=== PATIENT | male | born 1945 | race Caucasian/White ===

== ENCOUNTER 2020-06-13 12:40 | Inpatient (IN) | payer MEDICARE ==
[2020-06-13] MEDS ORDERED: HEPARIN SODIUM 1,000 UN/ML (10ML VL) IV ONE (12:45)
--- NOTE | 2020-06-13 12:45 | ED ---
Chest Pain HPI - General Stated Complaint: chest pain Time Seen by Provider: 06/13/20 12:40 - History of Present Illness Initial Comments: Patient is a 74-year-old male, previously healthy who presents to the emergency department with chest pain. Chest pain started around 10:30 AM this morning. He describes it as a crushing chest pain with radiation to the left arm. Patient has associated shortness of breath. No cough, fevers or chills. He denies previous history of cardiac disease. Did have a stress test however this was several years ago. EMS was called to the house where they found that the patient was having ST segment elevation. He was provided with 1 nitro, 4 baby aspirins, 100 g of fentanyl. Patient arising continues to have 8 out of 10 pain. Denies any abdominal pain. No back pain. No other alleviating, precipitating or modifying factors - Related Data Home Medications Medication Instructions Recorded Confirmed Ibuprofen [Motrin Ib] 200 - 800 mg PO Q8H PRN 06/13/20 06/13/20 Allergies Allergy/AdvReac Type Severity Reaction Status Date / Time No Known Allergies Allergy Verified 06/13/20 12:52 Review of Systems ROS Statement: Those systems with pertinent positive or pertinent negative responses have been documented in the HPI. ROS Other: All systems not noted in ROS Statement are negative. EKG Findings - EKG Comments: EKG Findings:: EKG demonstrates a sinus rhythm with a ventricular rate of 91. NV interval 136. QRS 104. QTC 489. ST segment elevation in V1 through V3. Inferior depression in 2, 3 and aVF. General Exam General appearance: alert, in no apparent distress Head exam: Present: atraumatic, normocephalic, normal inspection Eye exam: Present: normal appearance, PERRL, EOMI. Absent: scleral icterus, conjunctival injection, periorbital swelling ENT exam: Present: normal exam, mucous membranes moist Neck exam: Present: normal inspection. Absent: tenderness, meningismus, lymphadenopathy Respiratory exam: Present: rales (b/l bases). Absent: respiratory distress, wheezes, rhonchi, stridor Cardiovascular Exam: Present: regular rate, normal rhythm, normal heart sounds. Absent: systolic murmur, diastolic murmur, rubs, gallop, clicks GI/Abdominal exam: Present: soft, normal bowel sounds. Absent: distended, tenderness, guarding, rebound, rigid Extremities exam: Present: normal inspection, full ROM, normal capillary refill. Absent: tenderness, pedal edema, joint swelling, calf tenderness Back exam: Present: normal inspection Neurological exam: Present: alert, oriented X3, CN II-XII intact Psychiatric exam: Present: normal affect, normal mood Skin exam: Present: warm, dry, intact, normal color. Absent: rash Course Vital Signs 06/13/20 12:41 Temperature 98.0 F Pulse Rate 79 Respiratory 18 Rate Blood Pressure 120/85 O2 Sat by Pulse 97 Oximetry - Reevaluation(s) Reevaluation #1: Dr. Quinones notified prehospital that patients EKG demonstrates STEMI 06/13/20 12:35 Reevaluation #2: STEMI activated - Dr. Quinones at bedside to evaluate patient 06/13/20 12:50 Reevaluation #3: 06/13/20 13:10 Patient wheeled to aquatic life laborer Chest Pain MDM - MDM Upon arrival the patient's is placed in the trauma bay 1. Thorough history and physical exam was performed. 12-lead EKG does demonstrate anterior wall STEMI. Patient was given 4000 units heparin as he has no contraindications. Blood pressure is stable and therefore the patient was also given 4 mg of morphine for pain control. Dr. Silverman does present to the emergency department and evaluates the patient. Requesting 40 mg of Lasix. Patient's does arrive. Both and patient agreed to catheterization at this time. Patient remained with stable vital signs and was taken to the Booking Police Officer in stable condition. Spoke with Dr. Oliveira who will admit the patient. Disposition Clinical Impression: ST elevation myocardial infarction (STEMI), Chest pain Disposition: ADMITTED IP TO THIS HOSP Condition: Serious Is patient prescribed a controlled substance at d/c from ED?: No Decision to Admit Reason: Admit from EC Decision Date: 06/13/20 Decision Time: 13:00
[2020-06-13] MEDS ORDERED: SODIUM CHLORIDE 0.9% 1,000 ML IV ONE (12:46)
[2020-06-13] MEDS ORDERED: FUROSEMIDE 10 MG/ML 4 ML VIAL IV STA (12:52)
[2020-06-13] MEDS ORDERED: MORPHINE SULFATE 4 MG/ML SYRINGE IVP STA (12:55)
[2020-06-13] MEDS ORDERED: NALOXONE 0.4 MG/ML 1 ML VIAL IV PRN (13:01)
[2020-06-13 13:10] LABS: ALT 19 U/L (4-49); AST 40 U/L (17-59); African American GFR (CKD) >90 (>60 ml/min/1.73 sqM); Alkaline Phosphatase 95 U/L (38-126); Anion Gap 12 mmol/L; Blood Urea Nitrogen 16 mg/dL (9-20); Carbon Dioxide 17 mmol/L (22-30); Chloride 107 mmol/L (98-107); Glucose 163 mg/dL (74-99); Non-African American GFR(CKD) >90 (>60 ml/min/1.73 sqM); Sodium 136 mmol/L (137-145); Total Bilirubin 1.2 mg/dL (0.2-1.3); Total Protein 6.7 g/dL (6.3-8.2)
[2020-06-13] MEDS ORDERED: fentaNYL (PF) 50 MCG/ML 2 ML AMP ONE (13:10)
[2020-06-13] MEDS ORDERED: HEPARIN SODIUM 1,000 UN/ML (10ML VL) ONE (13:10)
[2020-06-13 13:13] LABS: Basophils % (A) 0 %; Eosinophils # (A) 0.1 k/uL (0-0.7); Eosinophils % (A) 2 %; HGB 14.9 gm/dL (13.0-17.5); Lymphocytes # (A) 1.3 k/uL (1.0-4.8); Lymphocytes % (A) 18 %; MCH 33.8 pg (25.0-35.0); MCHC 34.7 g/dL (31.0-37.0); MCV 97.5 fL (80.0-100.0); Monocytes # (A) 0.6 k/uL (0-1.0); Monocytes % (A) 8 %; Neutrophils # (A) 5.1 k/uL (1.3-7.7); Neutrophils % (A) 70 %; Platelet Count 196 k/uL (150-450); RBC 4.41 m/uL (4.30-5.90); RDW 13.8 % (11.5-15.5); WBC 7.2 k/uL (3.8-10.6)
[2020-06-13] MEDS ORDERED: VERAPAMIL 2.5 MG/ML 2 ML AMP ONE (13:17)
[2020-06-13 13:21] LABS: Prothrombin Time 10.5 sec (9.0-12.0)
[2020-06-13] MEDS ORDERED: LIDOCAINE 1% INJ 10MG/ML (20 ML MDV) SQ ONE (13:21)
[2020-06-13 13:22] LABS: Potassium 4.8 mmol/L (3.5-5.1)
[2020-06-13] MEDS ORDERED: VERAPAMIL SYRINGE (5 MG/10 ML) INTRAARTER ONE (13:23)
[2020-06-13] MEDS ORDERED: IV FLUID CONTINUATION 800 ML IV ONE (13:25)
[2020-06-13 13:39] LABS: Partial Thromboplastin Time 19.6 sec (22.0-30.0)
--- NOTE | 2020-06-13 13:39 | P.CRDCN ---
History of Present Illness Consult date: 06/13/20 History of present illness: This is a 74-year-old gentleman with no significant past medical history who came to the emergency room with complaints of chest pain of 3 to 4 hrs duration. His EKG showed ST elevation anteriorly consistent with anterior wall DC. Patient is advised to have cardiac catheterization with the intention of primary intervention Review of Systems Not obtained Past Medical History Past Medical History: No Reported History History of Any Multi-Drug Resistant Organisms: None Reported Additional Past Surgical History / Comment(s): hernia, shoulder. cataracts. back Past Psychological History: No Psychological Hx Reported Smoking Status: Former smoker Past Alcohol Use History: Occasional Past Drug Use History: None Reported Medications and Allergies Home Medications Medication Instructions Recorded Confirmed Type Ibuprofen [Motrin Ib] 200 - 800 mg PO Q8H PRN 06/13/20 06/13/20 History Allergies Allergy/AdvReac Type Severity Reaction Status Date / Time No Known Allergies Allergy Verified 06/13/20 12:52 Physical Exam Vitals: Vital Signs Temp Pulse Resp BP Pulse Ox 06/13/20 12:41 98.0 F 79 18 120/85 97 Intake and Output 06/12/20 06/13/20 06/13/20 22:59 06:59 14:59 Other: Weight 103.51 kg GENERAL EXAM: Patient is alert and oriented and doesn't appear to be in any acute distress HEENT: Normocephalic. Normal reaction of pupils, equal size, normal range of extraocular motion. No erythema or exudates in the throat. NECK: No masses, no nuchal rigidity. CHEST: No chest wall deformity. LUNGS: Crackles at the right base HEART: S1 and S2 normal with no audible mumurs or gallops. Regular rhythm, femorals equal on both sides.. ABDOMEN: No hepatosplenomegaly, normal bowel sounds, no guarding or rigidity. SKIN: No rashes CENTRAL NERVOUS SYSTEM: No focal deficits. EXTREMITIES: No cyanosis, clubbing or edema. Results 06/13/20 12:47 06/13/20 12:47 Cardiac Enzymes 06/13/20 06/13/20 Range/Units 12:47 12:47 AST 40 (17-59) U/L Troponin I 0.082 H* (0.000-0.034) ng/mL CBC 06/13/20 Range/Units 12:47 WBC 7.2 (3.8-10.6) k/uL RBC 4.41 (4.30-5.90) m/uL Hgb 14.9 (13.0-17.5) gm/dL Hct 43.0 (39.0-53.0) % Plt Count 196 (150-450) k/uL Comprehensive Metabolic Panel 06/13/20 Range/Units 12:47 Sodium 136 L (137-145) mmol/L Potassium 4.8 (3.5-5.1) mmol/L Chloride 107 (98-107) mmol/L Carbon Dioxide 17 L (22-30) mmol/L BUN 16 (9-20) mg/dL Creatinine 0.74 (0.66-1.25) mg/dL Glucose 163 H (74-99) mg/dL Calcium 9.0 (8.4-10.2) mg/dL AST 40 (17-59) U/L ALT 19 (4-49) U/L Alkaline Phosphatase 95 (38-126) U/L Total Protein 6.7 (6.3-8.2) g/dL Albumin 4.0 (3.5-5.0) g/dL Current Medications Generic Name Dose Route Start Last Admin Trade Name Freq PRN Reason Stop Dose Admin Sodium Chloride 1,000 mls @ 999 mls/hr 06/13/20 12:46 06/13/20 12:55 Saline 0.9% IV 06/13/20 13:46 999 mls/hr .Q1H1M ONE Administration Naloxone HCl 0.2 mg 06/13/20 13:01 Naloxone 0.4 Mg/Ml 1 Ml Vial IV Q2M PRN Opioid Reversal Intake and Output 06/12/20 06/13/20 06/13/20 22:59 06:59 14:59 Other: Weight 103.51 kg Patient Weight 06/14/20 06:59 Weight 103.51 kg 06/13/20 12:47 06/13/20 12:47 EKG Interpretations (text) Acute anterolateral DC Assessment and Plan (1) ST elevation myocardial infarction (STEMI) Current Visit: Yes Status: Acute Code(s): I21.3 - ST ELEVATION (STEMI) MYOCARDIAL INFARCTION OF RUST SITE SNOMED Code(s): 54511444 Plan: Proceed with cardiac catheterization with intntion of primary intervention
[2020-06-13] MEDS: HEPARIN SODIUM 1,000 UN/ML (10ML VL) IV ONE ×2 (13:40→14:21)
[2020-06-13] MEDS ORDERED: TIROFIBAN BOLUS 12.5MG/250 ML BAG IV ONE (13:41)
--- NOTE | 2020-06-13 13:43 | P.CARDCATH ---
Date of Procedure: 06/13/20 Preoperative Diagnosis: Acute anterior wall myocardial infarctions Postoperative Diagnosis: Total occlusion of the proximal LAD Procedure(s) Performed: Left heart catheterization, selective coronary arteriography. No LV gram Description of Procedure: HISTORY: Patient came at the [facility] CONSENT:I have discussed the risks, benefits and alternative therapies for the above-mentioned procedure and for both sedation/analgesia as well as necessary blood product administration, if indicated, as they pertain to this patient. The patient has indicated understanding and acceptance of the risks and procedures discussed. PROCEDURE: Patient was brought to the lab in a fasting state. Patient was given some IV sedation in the emergency room. The right wrist is infiltrated with lidocaine and right radial artery was entered using Seldinger technique. A 6- Azeri catheter was left in place and selective coronary arteriography was performed. Patient tolerated the procedure well. Femoral angiogram was performed and Angio-Seal was applied for hemostasis. No immediate complications were noted and patient was transferred to [facility] in a stable condition Conscious Sedation: Versed 0mg Fentanyl 0 g Duration 14minutes HEMODYNAMICS: The aortic pressure is 130/70. Left ventricle end-diastolic pressure was not measured SELECTIVE CORONARY ARTERIOGRAPHY: LEFT MAIN: Normal length and patent THE LEFT ANTERIOR DESCENDING CORONARY ARTERY: . Good caliber vessel which is totally occluded in the proximal portion THE LEFT CIRCUMFLEX AND IS CORONARY ARTERY: . Good caliber vessel free of any significant occlusive disease THE RIGHT CORONARY ARTERY: Large caliber vessel free of occlusive disease. Dominant vessel giving rise to PDA and PLV LEFT VENTRICULOGRAPHY: FINAL IMPRESSION: Total occlusion of the LAD PLAN: Stent placement of LAD PROGNOSIS: Fair
[2020-06-13] MEDS ORDERED: TIROFIBAN 12.5MG-250ML NS 250 ML IV ONE (13:45)
[2020-06-13] MEDS ORDERED: NOREPINEPHRINE 4 MG in SODIUM CHLORIDE 0.9% 250 ML IV ONE (13:50)
[2020-06-13] MEDS ORDERED: AMIODARONE 50 MG/ML 3 ML VIAL IV ONE (13:52)
[2020-06-13] MEDS ORDERED: LIDOCAINE 2% SYG (PF) 100 MG/5 ML IV ONE (13:55)
[2020-06-13] MEDS: EPINEPHrine 10 ML SYRINGE (0.1 MG/ML) IV ONE ×4 (13:57→14:12)
--- NOTE | 2020-06-13 14:05 | XR ---
EXAMINATION TYPE: XR chest 1V portable DATE OF EXAM: 06/13/2020 COMPARISON: 07/19/2010 HISTORY: Chest pain TECHNIQUE: Single frontal view of the chest is obtained. FINDINGS: Elevated left hemidiaphragm with basilar atelectasis. Coarsened interstitium. Arthropathy of the left shoulder. Mild prominence of the right hilum. Patient is rotated. IMPRESSION: 1. Left basilar atelectasis favored over early pneumonia. 2. Prominent of the right hilum likely reflects slight patient rotation. Follow-up PA and lateral vie ws of the chest recommended to exclude ascending aorta aneurysm.
[2020-06-13] MEDS ORDERED: IOPAMIDOL-370 125ML BTL INJ ONE (14:21)
[2020-06-13] MEDS ORDERED: IOPAMIDOL-370 100ML BTL INJ ONE (14:24)
[2020-06-13] MEDS ORDERED: SODIUM CHLORIDE 0.9% 500 ML 500 ML IV ONE (14:29)
[2020-06-13] MEDS ORDERED: TICAGRELOR 90 MG TAB ONE (14:37)
[2020-06-13] MEDS ORDERED: TICAGRELOR 90 MG TAB PO ONE (14:38)
[2020-06-13 15:01] LABS: Glucose,Whole Blood 210 mg/dL (75-99)
--- NOTE | 2020-06-13 16:51 | P.HPIM ---
History of Present Illness H&P Date: 06/13/20 Chief Complaint: chest pain Patient is a 74-year-old healthy male who presented to the emergency Department complaints of chest pain. On arrival to the ER his EKG showed ST segment elevation anteriorly. A code STEMI was activated. He went emergently to the medical lab scientist. He had one drug-eluting stent placed to the LAD. He was transferred to the ICU in stable condition. Patient seen and examined at bedside. This morning was going some mild physical labor and started having chest pain and left arm pain that continued to get worse. Called 911. + SOB, + diaphoresis, no nausea, no presyncope. has a hx of pain on the right side of his chest, has had physical exhaustion with intermittent shortness of breath. Has seen Dr. Lombardi in the past about 10 years ago negative stress test but had some "weakness in the heart" Follows with urology for problems with urination. Pertinent positives and negatives as discussed in HPI, a complete review of systems was performed and all other systems are negative. General: non toxic, no distress, appears at stated age Derm: warm, dry Head: atraumatic, normocephalic, symmetric Eyes: EOMI, no lid lag, anicteric sclera, pupils equal round reactive to light ENT: Nose and ears atraumatic, no thrush, no pharyngeal erythema Neck: No thyromegaly, no cervical lymphadenopathy, trachea midline, supple Mouth: no lip lesion, mucus membranes moist Cardiovascular: S1S2 reg, no murmur, positive posterior tibial pulse bilateral, no edema, capillary refill less than 2 seconds Lungs: clear to ascultation bilateral, no ronchi, no rales, no wheeze, no accessory muscle use Abdominal: soft, nontender to palpation, no guarding, no appreciable organomegaly, normal bowel sounds Ext: no gross muscle atrophy, muscle strength muscle strength 5 out of 5 in all 4 extremities, no contractures Neuro: CN II-XI grossly intact, light touch intact all 4 extremities, finger to nose within normal limits, Psych: Alert, oriented, appropriate affect ST segment elevated myocardial infarction status post PCI 1 to the LAD -Aspirin, Lipitor, Lopressor (hold for low BP), aggrestat -Telemetry -Echocardiogram in a.m. -Cardiology recommendations - currently being weaned off levo Hyperglycemia -Sliding-scale insulin -Check hemoglobin A1c Overweight BMI 30.9 - structured outpatient weight loss The patient is admitted with an anticipated greater than 2 midnight stay for evaluation of []. Surrogate decision-maker: CODE STATUS:full code, no assisted vent DVT prophylaxis: heparin Discussed with: patient Anticipated discharge date: 3-[address]: home A total of 65 minutes was spent on the care of this complex patient more than 50% of the time was spent in counseling and care coordination. Past Medical History Past Medical History: No Reported History History of Any Multi-Drug Resistant Organisms: None Reported Additional Past Surgical History / Comment(s): hernia Injuinal left and right , shoulder X 3. cataracts, macular repair. back Past Psychological History: No Psychological Hx Reported Smoking Status: Former smoker (quit in 1992) Past Alcohol Use History: Occasional Past Drug Use History: None Reported - Past Family History Father Additional Family Medical History / Comment(s): CHF, valvular heart disease Medications and Allergies Home Medications Medication Instructions Recorded Confirmed Type Ibuprofen [Motrin Ib] 200 - 800 mg PO Q8H PRN 06/13/20 06/13/20 History Allergies Allergy/AdvReac Type Severity Reaction Status Date / Time No Known Allergies Allergy Verified 06/13/20 12:52 Physical Exam Osteopathic Statement: *. No significant issues noted on an osteopathic structural exam other than those noted in the History and Physical/Consult. Vitals: Vital Signs Temp Pulse Pulse Resp BP Pulse Ox 06/13/20 13:08 97.8 F 78 20 128/102 98 06/13/20 12:45 74 20 06/13/20 12:41 98.0 F 79 18 120/85 97 Intake and Output 06/13/20 06/13/20 06/13/20 06:59 14:59 22:59 Intake Total 830 Balance 830 Intake: IV 830 Other: Weight 103.51 kg Results CBC & Chem 7: 06/13/20 12:47 06/13/20 12:47 Labs: Abnormal Lab Results - Last 24 Hours (Table) 06/13/20 06/13/20 06/13/20 Range/Units 12:47 12:47 12:47 APTT 19.6 L (22.0-30.0) sec Sodium 136 L (137-145) mmol/L Carbon Dioxide 17 L (22-30) mmol/L Glucose 163 H (74-99) mg/dL POC Glucose (mg/dL) (75-99) mg/dL Troponin I 0.082 H* (0.000-0.034) ng/mL 06/13/20 Range/Units 14:59 APTT (22.0-30.0) sec Sodium (137-145) mmol/L Carbon Dioxide (22-30) mmol/L Glucose (74-99) mg/dL POC Glucose (mg/dL) 210 H (75-99) mg/dL Troponin I (0.000-0.034) ng/mL
[2020-06-13 16:53] LABS: Glucose,Whole Blood 181 mg/dL (75-99)
[2020-06-13] MEDS: ATORVASTATIN 80 MG TAB PO SCH (16:55)
[2020-06-13] MEDS: SODIUM CHLORIDE 0.9% 1,000 ML IV SCH (16:55)
[2020-06-13] MEDS: INSULIN ASPART (NovoLOG) 100 UNIT/ML VIAL SQ SCH ×2 (16:56→21:02)
[2020-06-13] MEDS ORDERED: DEXTROSE 5% IN WATER 100 ML with AMIODARONE 150 MG IV ONE (18:00)
[2020-06-13] MEDS ORDERED: AMIODARONE 360 MG in DEXTROSE 5% IN WATER 200 ML IV ONE ×2 (18:15)
[2020-06-13 20:40] LABS: Glucose,Whole Blood 161 mg/dL (75-99)
[2020-06-13] MEDS: LOSARTAN 25 MG TAB PO SCH (21:51)
[2020-06-13] MEDS: METOPROLOL TARTRATE 12.5 MG TAB PO SCH (21:52)
[2020-06-13] MEDS ORDERED: TIROFIBAN 12.5MG-250ML NS 250 ML IV SCH (22:30)
[2020-06-14] MEDS ORDERED: AMIODARONE 450 MG in DEXTROSE 5% IN WATER 250 ML IV SCH ×2
[2020-06-14] MEDS: SODIUM CHLORIDE 0.9% 1,000 ML IV SCH (03:05)
[2020-06-14] MEDS ORDERED: NITROGLYCERIN SL TABS 0.4 MG TAB SUBLINGUAL PRN (03:10)
[2020-06-14] MEDS: ACETAMINOPHEN TAB 325 MG TAB PO PRN (03:20)
[2020-06-14 04:22] LABS: HCT 38.7 % (39.0-53.0); HGB 13.5 gm/dL (13.0-17.5); MCH 33.9 pg (25.0-35.0); MCHC 34.9 g/dL (31.0-37.0); MCV 97.2 fL (80.0-100.0); Mean Platelet Volume 8.4; Platelet Count 160 k/uL (150-450); RBC 3.98 m/uL (4.30-5.90); RDW 13.4 % (11.5-15.5)
[2020-06-14 04:37] LABS: ALT 66 U/L (4-49); AST 469 U/L (17-59); African American GFR (CKD) >90 (>60 ml/min/1.73 sqM); Albumin 3.1 g/dL (3.5-5.0); Alkaline Phosphatase 75 U/L (38-126); Anion Gap 6 mmol/L; Blood Urea Nitrogen 17 mg/dL (9-20); Calcium 8.2 mg/dL (8.4-10.2); Carbon Dioxide 22 mmol/L (22-30); Chloride 106 mmol/L (98-107); Cholesterol 144 mg/dL (<200); Glucose 142 mg/dL (74-99); HDL Cholesterol 33 mg/dL (40-60); LDL Cholesterol,Calculated 91 mg/dL (0-99); Non-African American GFR(CKD) >90 (>60 ml/min/1.73 sqM); Potassium 4.1 mmol/L (3.5-5.1); Sodium 134 mmol/L (137-145); Total Bilirubin 0.8 mg/dL (0.2-1.3); Total Protein 5.4 g/dL (6.3-8.2); Triglycerides 100 mg/dL (<150)
[2020-06-14 06:40] LABS: Glucose,Whole Blood 162 mg/dL (75-99)
[2020-06-14] MEDS: INSULIN ASPART (NovoLOG) 100 UNIT/ML VIAL SQ SCH ×4 (06:42→20:39)
--- NOTE | 2020-06-14 08:25 | PTCA ---
PERCUTANEOUSTRANS CORORONARY ANGIOGRAPHY DATE OF SERVICE: 06/13/2020 PROCEDURE: PTCA and stenting of a totally occluded proximal LAD in the setting of an acute ST- elevation TN with a drug-eluting stent. PERFORMED BY: Dr. Leigh Lombardi. Moderate conscious sedation time was 60 minutes. Patient was administered Versed and Dilaudid. Oxygen saturation, hemodynamics and EKG were monitored closely. CLINICAL INFORMATION: Mr. Marco Antonio Ontiveros is a 74-year-old gentleman, a patient of Dr. Gregorio/Dr. Martinez who came into the hospital with chest pain suggestive of acute TN. He had anterior ST elevation, was seen and evaluated by Dr. Silverman who performed a cardiac cath which revealed that he had a total occlusion of proximal LAD. Cardiac cath was performed from right radial approach. His RCA had noncritical disease and circumflex was nondominant with noncritical disease. He was advised intervention that was performed expeditiously. Initially I used a JL-4 guide catheter without much good guide support. I switched over to an XB LAD 3.5 and 4.0, and still there was inadequate support. Eventually, I used a JL4.5 guide catheter. With this I was able to get good support. I advanced a run-through wire across the lesion and predilatation was performed with 3.0 caliber 12 mm Trek balloon. Subsequently I deployed a 3.25 caliber Xience stent in the distal aspect of the lesion. This was a quite a long lesion and in fact, there was good size diagonal branch that came off from the lesion. The initial stent jailed the diagonal branch. Proximal to it, another 12 mm stent was deployed telescoping into it and this was also a 3.25 caliber stent. Patient received heparin intravenously and also Aggrastat infusion was given. ACT was about 218. Excellent angiographic result was achieved. Patient developed significant hypotension after the reperfusion and also had reperfusion idioventricular rhythm up to 90 beats per minute and also then had ventricular tachycardia at 110. I did not do any electrical cardioversion; instead, I gave him some amiodarone and lidocaine. With this he converted to sinus rhythm and then remained stable. He also received some Levophed drip. At the end of the procedure, he was on 6 mcg of Levophed with a pressure of 110 systolic completely pain-free with improvement in EKG. The sheath was taken out and a TR band applied as per protocol with saturation of the fingers of the right hand of 95%. Excellent angiographic result without complication was achieved. Two drug-eluting stents were deployed. Reperfusion was achieved in 70 minutes from the time patient came to the hospital. The door to balloon time was 70 minutes. Moderate conscious sedation time was 60 minutes. SOLOMON / ERNESTINE: [id number] /
[2020-06-14] MEDS ORDERED: FUROSEMIDE 10 MG/ML 2 ML VIAL IV ONE (08:48)
[2020-06-14] MEDS: ENOXAPARIN 40 MG/0.4 ML SYRINGE SQ SCH (08:52)
[2020-06-14] MEDS: METOPROLOL TARTRATE 12.5 MG TAB PO SCH ×2 (08:52→20:41)
[2020-06-14] MEDS: ATORVASTATIN 80 MG TAB PO SCH (08:52)
[2020-06-14] MEDS: TICAGRELOR 90 MG TAB PO SCH ×2 (08:52→20:41)
[2020-06-14] MEDS: ASPIRIN 81 MG PO SCH (08:52)
--- NOTE | 2020-06-14 10:33 | PN ---
PROGRESS NOTE Mr. Ontiveros is in sinus rhythm today. He is comfortable resting. Has no chest pain or shortness of breath. He presented with acute anterior wall LA, had occlusion of proximal LAD yesterday underwent stenting with 2 drug-eluting stent, complicated by a reperfusion arrhythmias and hypotension requiring amiodarone. However, he is in sinus rhythm, hemodynamically stable, off the Levophed, doing much better. Complains of shortness of breath. No chest discomfort. Troponin rise and fall are rather quick suggestive of reperfusion. The patient is complaining of some shortness of breath but no chest discomfort. Laboratory data looks good. Right radial site looks good. I am recommending that we continue current medications. Obtain echocardiogram. Increase activity and based on clinical course we will make further recommendations. I will give him one dose of Lasix 20 mg IV push and do a CBC and BMP tomorrow. PHYSICAL EXAMINATION: Vital signs stable. No JVD. S1, S2 heard normally, but distantly, short systolic murmur. Lungs reveal fine basal rales. Abdomen is soft. Lower extremities reveal diminished pulses. Central nervous system is normal. IMPRESSION: 1. Acute anterior myocardial infarction, status post PCI of LAD. 2. Hyperlipidemia. RECOMMENDATIONS: I am recommending one dose of Lasix. Continue current medications. Increase activity. Keep him in ICU for one more day. Based on clinical course. We will make further recommendations. Echocardiogram today. MMODL / IJN: [id number] /
[2020-06-14 12:15] LABS: Glucose,Whole Blood 151 mg/dL (75-99)
--- NOTE | 2020-06-14 12:23 | ECHOF ---
Referral Reason:Anterior TN, post PCI MEASUREMENTS -------- HEIGHT: 177.8 cm WEIGHT: 103.4 kg BP: 101/51 IVSd: 1.1 cm (0.6 - 1.1) LVIDd: 5.4 cm (3.9 - 5.3) LVPWd: 0.9 cm (0.6 - 1.1) IVSs: 1.1 cm LVIDs: 4.7 cm LVPWs: 0.8 cm Ao Diam: 4.0 cm (2.0 - 3.7) AV Cusp: 2.3 cm (1.5 - 2.6) LA Diam: 2.6 cm (2.7 - 3.8) MV E Jamal: 0.48 m/s MV DecT: 236 ms MV A Jamal: 0.71 m/s MV E/A Ratio: 0.67 RAP: 15.00 mmHg RVSP: 17.19 mmHg FINDINGS -------- This was a technically difficult study with suboptimal views. The left ventricular size is normal. Left ventricular wall thickness is normal. Overall left vent ricular systolic function is severely impaired with, an EF between 25 - 30 %. Basal inferoseptal LV wall motion is hypokinetic. Mid inferior LV wall motion is hypokinetic. Mid inferoseptal LV wa ll motion is hypokinetic. Apical anterior LV wall motion is hypokinetic. Apical lateral LV wall motion is hypokinetic. Apical inferior LV wall motion is hypokinetic. Apical septum LV wall mo tion is hypokinetic. The RV was not well visualized. The left atrium is normal in size. The right atrial size is normal. Lumason used The aortic valve is trileaflet and appears structurally normal. The mitral valve is normal. There is trace mitral regurgitation. The tricuspid valve appears structurally normal. Trace tricuspid regurgitation present. Right gabby tricular systolic pressure is normal at < 35 mmHg. There is no pulmonic regurgitation present. The aortic root size is normal. The inferior vena cava is mildly dilated. There is no pericardial effusion. CONCLUSIONS -------- 1. The left ventricular size is normal. 2. Left ventricular wall thickness is normal. 3. Overall left ventricular systolic function is severely impaired with, an EF between 25 - 30 %. 4. Basal inferoseptal LV wall motion is hypokinetic. 5. Mid inferior LV wall motion is hypokinetic. 6. Mid inferoseptal LV wall motion is hypokinetic. 7. Apical anterior LV wall motion is hypokinetic. 8. Apical lateral LV wall motion is hypokinetic. 9. Apical inferior LV wall motion is hypokinetic. 10. Apical septum LV wall motion is hypokinetic. 11. There is trace mitral regurgitation. 12. Trace tricuspid regurgitation present. 13. There is no pericardial effusion. CONCRETE LABORER: Symone Fuchs RDCS
--- NOTE | 2020-06-14 14:06 | P.PN ---
Subjective Progress Note Date: 06/14/20 (delayed charting seen at 1030) Principal diagnosis: chest pain Patient is a 74-year-old healthy male who presented to the emergency Department complaints of chest pain. On arrival to the ER his EKG showed ST segment elevation anteriorly. A code STEMI was activated. He went emergently to the laboratory asst. He had one drug-eluting stent placed to the LAD. He was transferred to the ICU in stable condition. Patient seen and examined at bedside. No chest pain now but did have some chest pain overnight, Feeling very short of breath days, no nausea or vomiting. General: ill appearing, no distress, appears at stated age Derm: warm, dry Head: atraumatic, normocephalic, symmetric Eyes: EOMI, no lid lag, anicteric sclera Mouth: no lip lesion, mucus membranes moist Cardiovascular: S1S2 reg, no murmur, positive posterior tibial pulse bilateral, Lungs: decreased be bilateral, no rhonchi, no rales , no accessory muscle use Abdominal: soft, nontender to palpation, no guarding, no appreciable organomegaly Ext: no gross muscle atrophy, no edema LE, + L hand swelling, no contractures Neuro: CN II-XI grossly intact, no focal neuro deficits Psych: Alert, oriented, appropriate affect ST segment elevated myocardial infarction status post PCI 1 to the LAD, ischemic cardiomyopathy -Aspirin, Lipitor, Lopressor, cozzar, brilinta -Telemetry -Cardiology recommendations - reperfusion arrhythmia requiring amio Hyperglycemia -Sliding-scale insulin -hemoglobin A1c pending Overweight BMI 30.9 - structured outpatient weight loss DVT prophylaxis: heparin Discussed with: patient Anticipated discharge date: 3-[address]: home A total of 35 minutes was spent on the care of this complex patient more than 50% of the time was spent in counseling and care coordination. Objective - Vital Signs Vital signs: Vital Signs Temp 98.5 F 06/14/20 08:00 Pulse 69 06/14/20 09:00 Resp 27 H 06/14/20 09:00 BP 116/81 06/14/20 09:00 Pulse Ox 100 06/14/20 09:00 Intake & Output 06/13/20 06/14/20 06/14/20 18:59 06:59 18:59 Intake Total 1430 1349.4 816.6 Output Total 958 829 1030 Balance 630 594.4 -313.4 Weight 103.51 kg 105.2 kg Intake: IV 1230 1349.4 216.6 Amiodarone 360 mg In 133.2 Dextrose 5% in Water 200 ml @ 1 MG/MIN 33.333 mls/ hr IV .Q6H [facility] Rx#: [id number] Amiodarone 450 mg In 116.2 16.6 Dextrose 5% in Water 250 ml @ 0.5 MG/MIN 16.667 mls/hr IV .Q15H [facility] Rx#: [id number] Sodium Chloride 0.9% 1, 400 1100 200 000 ml @ 100 mls/hr IV . Q10H [facility] Rx#:[id number] Oral 200 600 Output: Urine 832 534 4883 Other: Voiding Method Indwelling Catheter Indwelling Catheter Indwelling Catheter - Labs CBC & Chem 7: 06/14/20 03:13 06/14/20 03:13 Labs: Abnormal Lab Results - Last 24 Hours (Table) 06/13/20 06/13/20 06/13/20 Range/Units 14:59 16:51 18:06 RBC (4.30-5.90) m/uL Hct (39.0-53.0) % Sodium (137-145) mmol/L Glucose (74-99) mg/dL POC Glucose (mg/dL) 210 H 181 H (75-99) mg/dL Calcium (8.4-10.2) mg/dL AST (17-59) U/L ALT (4-49) U/L Troponin I 224.000 H* (0.000-0.034) ng/mL Total Protein (6.3-8.2) g/dL Albumin (3.5-5.0) g/dL HDL Cholesterol (40-60) mg/dL 06/13/20 06/14/20 06/14/20 Range/Units 20:39 03:13 03:13 RBC (4.30-5.90) m/uL Hct (39.0-53.0) % Sodium 134 L (137-145) mmol/L Glucose 142 H (74-99) mg/dL POC Glucose (mg/dL) 161 H (75-99) mg/dL Calcium 8.2 L (8.4-10.2) mg/dL AST 469 H (17-59) U/L ALT 66 H (4-49) U/L Troponin I 99.700 H* (0.000-0.034) ng/mL Total Protein 5.4 L (6.3-8.2) g/dL Albumin 3.1 L (3.5-5.0) g/dL HDL Cholesterol 33 L (40-60) mg/dL 06/14/20 06/14/20 06/14/20 Range/Units 03:13 06:39 11:44 RBC 3.98 L (4.30-5.90) m/uL Hct 38.7 L (39.0-53.0) % Sodium (137-145) mmol/L Glucose (74-99) mg/dL POC Glucose (mg/dL) 162 H 151 H (75-99) mg/dL Calcium (8.4-10.2) mg/dL AST (17-59) U/L ALT (4-49) U/L Troponin I (0.000-0.034) ng/mL Total Protein (6.3-8.2) g/dL Albumin (3.5-5.0) g/dL HDL Cholesterol (40-60) mg/dL
[2020-06-14 14:33] LABS: Hemoglobin A1C 6.2 % (4.0-6.0)
[2020-06-14 20:27] LABS: Glucose,Whole Blood 136 mg/dL (75-99)
[2020-06-14] MEDS: LOSARTAN 25 MG TAB PO SCH (20:41)
[2020-06-15] MEDS: ALPRAZolam 0.25 MG TAB PO PRN ×2 (00:06→22:47)
[2020-06-15 04:25] LABS: HCT 36.5 % (39.0-53.0); HGB 12.9 gm/dL (13.0-17.5); MCH 34.1 pg (25.0-35.0); MCHC 35.3 g/dL (31.0-37.0); MCV 96.4 fL (80.0-100.0); Mean Platelet Volume 8.1; Platelet Count 140 k/uL (150-450); RBC 3.79 m/uL (4.30-5.90); RDW 13.3 % (11.5-15.5); WBC 10.6 k/uL (3.8-10.6)
[2020-06-15 04:50] LABS: African American GFR (CKD) >90 (>60 ml/min/1.73 sqM); Anion Gap 4 mmol/L; Blood Urea Nitrogen 14 mg/dL (9-20); Calcium 8.1 mg/dL (8.4-10.2); Carbon Dioxide 23 mmol/L (22-30); Chloride 103 mmol/L (98-107); Glucose 118 mg/dL (74-99); Magnesium 1.9 mg/dL (1.6-2.3); Non-African American GFR(CKD) >90 (>60 ml/min/1.73 sqM); Sodium 130 mmol/L (137-145)
[2020-06-15 07:18] LABS: Glucose,Whole Blood 114 mg/dL (75-99)
[2020-06-15] MEDS ORDERED: MAGNESIUM SULFATE-D5W PMX 1 GM in DEXTROSE/WATER 1 100ML.BAG IVPB ONE (07:27)
[2020-06-15] MEDS ORDERED: FUROSEMIDE 20 MG TAB PO SCH (09:00)
--- NOTE | 2020-06-15 09:20 | PN ---
PROGRESS NOTE Mr. Ontiveros presented with acute anterior GA, underwent stenting of LAD. This morning he feels weak and fatigued. He has not slept well, but yesterday afternoon he felt well. I had given him 20 mg of Lasix and he had decent urine output. Ejection fraction is about 30% with extensive wall motion abnormality in the LAD distribution and I hope this will improve since he had a fairly prompt reperfusion. PHYSICAL EXAMINATION: Vitals are stable. JVD 1 cm. No carotid bruit. S1, S2 heard normally, short systolic murmur. Lungs revealed bilateral decent air entry. Abdomen is soft. Lower extremity with palpable pulses. No edema. Central nervous system is normal. Right radial cath site is clean and dry with a good pulse. IMPRESSION: 1. Status post anterior myocardial infarction with decreased left ventricular function, no overt heart failure. Clinically some improvement noted. 2. History of hyperlipidemia. RECOMMENDATIONS: I am recommending that we supplement magnesium, increase beta prakash to [address] him on Lasix 20 mg daily and see how he does. Prognosis remains guarded. MMODL / IJN: [id number] /
--- NOTE | 2020-06-15 09:29 | P.PN ---
Subjective Progress Note Date: 06/15/20 Principal diagnosis: chest pain Patient is a 74-year-old healthy male who presented to the emergency Department complaints of chest pain. On arrival to the ER his EKG showed ST segment elevation anteriorly. A code STEMI was activated. He went emergently to the general labor. He had one drug-eluting stent placed to the LAD. He was transferred to the ICU in stable condition. Echo showed EF 25-30%. Patient seen and examined at bedside. No chest pain, still some SOB unchanged f rom yesterday, did not sleep well last night, Feeling very tired and fatigued. General: ill appearing, no distress, appears at stated age Derm: warm, dry Head: atraumatic, normocephalic, symmetric Eyes: EOMI, no lid lag, anicteric sclera Mouth: no lip lesion, mucus membranes moist Cardiovascular: S1S2 reg, no murmur, positive posterior tibial pulse bilateral, Lungs: decreased be bilateral, no rhonchi, no rales , no accessory muscle use Abdominal: soft, nontender to palpation, no guarding, no appreciable organomegaly Ext: no gross muscle atrophy, no edema LE, + L hand swelling, no contractures Neuro: CN II-XI grossly intact, no focal neuro deficits Psych: Alert, oriented, appropriate affect ST segment elevated myocardial infarction status post PCI 1 to the LAD, ischemic cardiomyopathy -Aspirin, Lipitor, Lopressor (increased due to tachycardia), cozzar, brilinta -Telemetry -Cardiology recommendations - reperfusion arrhythmia requiring amio Hyperglycemia -Sliding-scale insulin -hemoglobin A1c 6.2 not consistent with DM Overweight BMI 30.9 - structured outpatient weight loss DVT prophylaxis: heparin Discussed with: patient Anticipated discharge date: 2-[address]: home A total of 35 minutes was spent on the care of this complex patient more than 50 % of the time was spent in counseling and care coordination. Objective - Vital Signs Vital signs: Vital Signs Temp 98.4 F 06/15/20 04:00 Pulse 95 06/15/20 07:00 Resp 13 06/15/20 07:00 BP 109/65 06/15/20 07:00 Pulse Ox 96 06/15/20 07:00 Intake & Output 06/14/20 06/15/20 06/15/20 18:59 06:59 18:59 Intake Total 816.6 480 Output Total 1610 1230 100 Balance -793.4 -750 -100 Weight 105.5 kg Intake: IV 216.6 Amiodarone 450 mg In 16.6 Dextrose 5% in Water 250 ml @ 0.5 MG/MIN 16.667 mls/hr IV .Q15H [facility] Rx#: [id number] Sodium Chloride 0.9% 1, 200 000 ml @ 100 mls/hr IV . Q10H [facility] Rx#:[id number] Oral 600 480 Output: Urine 1610 1230 100 Other: Voiding Method Indwelling Catheter Indwelling Catheter # Bowel Movements 1 - Labs CBC & Chem 7: 06/15/20 03:04 06/15/20 03:04 Labs: Abnormal Lab Results - Last 24 Hours (Table) 06/14/20 06/14/20 06/14/20 Range/Units 03:13 11:44 20:24 RBC (4.30-5.90) m/uL Hgb (13.0-17.5) gm/dL Hct (39.0-53.0) % Plt Count (150-450) k/uL Sodium (137-145) mmol/L Glucose (74-99) mg/dL POC Glucose (mg/dL) 151 H 136 H (75-99) mg/dL Hemoglobin A1c 6.2 H (4.0-6.0) % Calcium (8.4-10.2) mg/dL 06/15/20 06/15/20 06/15/20 Range/Units 03:04 03:04 07:15 RBC 3.79 L (4.30-5.90) m/uL Hgb 12.9 L (13.0-17.5) gm/dL Hct 36.5 L (39.0-53.0) % Plt Count 140 L (150-450) k/uL Sodium 130 L (137-145) mmol/L Glucose 118 H (74-99) mg/dL POC Glucose (mg/dL) 114 H (75-99) mg/dL Hemoglobin A1c (4.0-6.0) % Calcium 8.1 L (8.4-10.2) mg/dL
[2020-06-15] MEDS: INSULIN ASPART (NovoLOG) 100 UNIT/ML VIAL SQ SCH ×4 (09:39→20:37)
[2020-06-15] MEDS: ENOXAPARIN 40 MG/0.4 ML SYRINGE SQ SCH (09:40)
[2020-06-15] MEDS: ATORVASTATIN 80 MG TAB PO SCH (09:40)
[2020-06-15] MEDS: TICAGRELOR 90 MG TAB PO SCH ×2 (09:41→20:40)
[2020-06-15] MEDS: METOPROLOL TARTRATE 25 MG TAB PO SCH ×2 (09:41→20:40)
[2020-06-15] MEDS: ASPIRIN 81 MG PO SCH (10:13)
[2020-06-15] MEDS ORDERED: SODIUM CHLORIDE 0.9% 500 ML 250 ML IV ONE (11:45)
[2020-06-15 12:08] LABS: Glucose,Whole Blood 155 mg/dL (75-99)
--- NOTE | 2020-06-15 12:09 | CDI ---
Documentation Clarification Form Date: 06/15/2020 11:41:47 AM From: Maribel Bales RN CCDS Admit Date: 06/13/2020 01:04:00 PM Patient Name: Marco Antonio Ontiveros Visit Number: [id number] Discharge Date: ATTENTION: The Clinical Documentation Specialists (CDI) and [facility] Coding Staff appreciate your assistance in clarifying documentation. Please respond to the clarification below the line at the bottom and electronically sign. The CDI & [facility] Coding staff will review the response and follow-up if needed. Please note: Queries are made part of the Legal Health Record. If you have any questions, please contact the author of this message via ITS. Dr. Ricky Lombardi Your patient has the documented diagnosis of no overt heart failure 06/15 Cardiology note. Additional information regarding the type, acuity of CHF is requested. History/Risk Factors: 74-year-old male presents to the ED for chest pain, shortness of breath and physical exhaustion. Admitted with STEMI sent to Food Service Technician. HP 06/15; History of Hyperlipidemia. Cardiology Note 06/15. Clinical Indicators: VS/Pulse OX 06/13: B/P 120/85; HR 79; Temp 98.0 F Oral; RR 18; SpO2 97% ra Echocardiogram Results 06/14: Left ventricular systolic function is severely impaired with, an EF between 25-30%. Trace mitral regurgitation, Trace tricuspid regurgitation, Basal inferoseptal LV wall motion is hypokinetic, Mid inferior LV wall motion is hypokinetic and Apical Anterior LV wall motion is hypokinetic. Chest X Ray 06/13: Elevated left hemidiaphragm with basilar atelectasis. Treatment: 06/13 Lasix 40mg IV x1; 06/14 Lasix 20mg IV x1; 06/15 Lasix 20mg PO Daily; 06/13 Lopressor 12.5mg PO BID changed 06/15 Lopressor 25mg PO BID. In your professional opinion, can you please clarify the [acuity and type] of CHF if known? [ ] Acute Systolic Heart Failure (reduced EF) [ ] Chronic Systolic Heart Failure (reduced EF) [ ] Heart Failure Ruled Out [ ] Other, please specify [ ] Unable to determine (Template Last Revised: March 2020) Acute Systolic Heart Failure (reduced EF) MTDD
[2020-06-15 16:23] LABS: Glucose,Whole Blood 122 mg/dL (75-99)
[2020-06-15 20:03] LABS: Glucose,Whole Blood 172 mg/dL (75-99)
--- NOTE | 2020-06-15 20:19 | XR ---
EXAMINATION TYPE: XR chest 2V DATE OF EXAM: 06/15/2020 COMPARISON: 06/13/2020. HISTORY: Shortness of breath. TECHNIQUE: Frontal and lateral views of the chest are obtained. FINDINGS: There is interval moderate interstitial edema with associated hazy opacity. No significant pleural effusion, or pneumothorax seen. The cardiac silhouette size is within normal limits. The osseous structures are stable. IMPRESSION: Interval moderate interstitial edema with superimposed infiltrates not excluded.
[2020-06-15] MEDS: LOSARTAN 25 MG TAB PO SCH (20:40)
[2020-06-15] MEDS: MELATONIN 5 MG TABLET PO PRN (22:47)
[2020-06-16 06:07] LABS: Glucose,Whole Blood 124 mg/dL (75-99)
[2020-06-16] MEDS: INSULIN ASPART (NovoLOG) 100 UNIT/ML VIAL SQ SCH ×4 (06:07→20:23)
[2020-06-16] MEDS ORDERED: FUROSEMIDE 10 MG/ML 2 ML VIAL IV STA (08:16)
[2020-06-16 08:31] LABS: HCT 35.8 % (39.0-53.0); HGB 11.7 gm/dL (13.0-17.5); MCH 32.2 pg (25.0-35.0); MCHC 32.7 g/dL (31.0-37.0); MCV 98.3 fL (80.0-100.0); Platelet Count 146 k/uL (150-450); RBC 3.64 m/uL (4.30-5.90); WBC 9.7 k/uL (3.8-10.6)
[2020-06-16] MEDS: TICAGRELOR 90 MG TAB PO SCH ×2 (08:34→19:42)
[2020-06-16] MEDS: ATORVASTATIN 80 MG TAB PO SCH (08:34)
[2020-06-16] MEDS: ASPIRIN 81 MG PO SCH (08:34)
[2020-06-16] MEDS: ENOXAPARIN 40 MG/0.4 ML SYRINGE SQ SCH (08:35)
[2020-06-16] MEDS: SPIRONOLACTONE 25 MG TAB PO SCH (08:35)
[2020-06-16] MEDS: FUROSEMIDE 20 MG TAB PO SCH ×2 (08:35→18:14)
[2020-06-16] MEDS: METOPROLOL TARTRATE 25 MG TAB PO SCH ×2 (08:35→19:42)
[2020-06-16 08:50] LABS: African American GFR (CKD) >90 (>60 ml/min/1.73 sqM); Anion Gap 6 mmol/L; Blood Urea Nitrogen 16 mg/dL (9-20); Carbon Dioxide 22 mmol/L (22-30); Chloride 103 mmol/L (98-107); Glucose 172 mg/dL (74-99); Magnesium 2.1 mg/dL (1.6-2.3); Non-African American GFR(CKD) 89 (>60 ml/min/1.73 sqM); Potassium 3.7 mmol/L (3.5-5.1); Sodium 131 mmol/L (137-145)
--- NOTE | 2020-06-16 09:57 | P.PN ---
Subjective This is a pleasant 74-year-old male status post acute anterior wall myocardial infarction and stenting of the LAD. He is seen and examined sitting up in bed in no acute distress. Overall he feels as though his symptoms have improved however he has not really been up out of bed much. He states he does get up to the bathroom he does have some mild exertional shortness of breath however it improved since adding Aldactone yesterday. He has had no symptoms of chest discomfort. Blood pressure 91/53 heart rate 90 afebrile maintaining oxygen saturation on room air. Laboratory data reviewed, WBC 9.7, hemoglobin 11.7, platelets 146, sodium 131, potassium 3.7, creatinine 0.8, magnesium 2.1 and NT proBNP 7470. Chest x-ray performed last night reveals moderate interstitial edema superimposed infiltrates. Currently maintained on aspirin 81 mg daily, atorvastatin 80 mg daily, Lasix 20 mg by mouth twice a day, losartan 25 mg at bedtime, metoprolol 25 mg twice a day, Aldactone 12.5 mg daily and Brilinta 90 mg twice a day. Echocardiogram obtained on this admission reveals severely impaired LV systolic function with ejection fraction 25-30%, basal inferoseptal, mid inferior, mid appears septic, apical anterior, apical lateral, apical inferior and apical septal LV wall motion hypokinesia. Telemetry tracings reviewed, one isolated run of nonsustained ventricular tachycardia noted yesterday morning. GENERAL: Well-appearing, well-nourished and in no acute distress. NECK: Supple without JVD or thyromegaly. LUNGS: Bibasliar rales, improved from yesterday however still present. Respiration equal and unlabored. No wheezes or rhonchi. HEART: Regular rate and rhythm without murmurs, rubs or gallops. S1 and S2 heard. EXTREMITIES: Normal range of motion, no edema. No clubbing or cyanosis. Peripheral pulses intact. Right radial access site soft, nontender with no evidence of hematoma or ecchymosis and strong distal pulses. ASSESSMENT ST elevated anterior wall myocardial infarction Ischemic cardiomyopathy Acute systolic heart failure Hypertension Dyslipidemia Nonsustained ventricular tachycardia PLAN Give additional dose of IV lasix this morning. Increase activity as tolerated. Ongoing telemetry monitoring. Follow renal function and electrolytes in the morning. Check a TSH. Nurse Practitioner note has been reviewed, I agree with a documented findings and plan of care. Patient was seen and examined. Objective - Vital Signs Vital signs: Vital Signs Temp 97.6 F 06/16/20 04:00 Pulse 103 H 06/16/20 04:00 Resp 17 06/16/20 04:00 BP 99/56 06/16/20 04:00 Pulse Ox 95 06/16/20 04:00 Intake & Output 06/15/20 06/16/20 06/16/20 18:59 06:59 18:59 Intake Total 615 Output Total 650 100 Balance -35 -100 Weight 102 kg Intake: Oral 615 Output: Urine 650 100 Other: Voiding Method Indwelling Catheter # Voids 1 # Bowel Movements 1 - Labs CBC & Chem 7: 06/16/20 08:05 06/16/20 08:05 Labs: Abnormal Lab Results - Last 24 Hours (Table) 06/15/20 06/15/20 06/15/20 Range/Units 12:06 16:21 20:01 POC Glucose (mg/dL) 155 H 122 H 172 H (75-99) mg/dL 06/16/20 Range/Units 06:06 POC Glucose (mg/dL) 124 H (75-99) mg/dL
[2020-06-16] MEDS ORDERED: FUROSEMIDE 10 MG/ML 4 ML VIAL IV STA (11:47)
[2020-06-16 11:53] LABS: Glucose,Whole Blood 97 mg/dL (75-99)
[2020-06-16] MEDS ORDERED: FUROSEMIDE 10 MG/ML 4 ML VIAL ONE (12:23)
[2020-06-16 16:09] LABS: Glucose,Whole Blood 111 mg/dL (75-99)
--- NOTE | 2020-06-16 16:40 | P.PN ---
Subjective Progress Note Date: 06/16/20 (delayed charting seen at 1015) Principal diagnosis: chest pain Patient is a 74-year-old healthy male who presented to the emergency Department complaints of chest pain. On arrival to the ER his EKG showed ST segment elevation anteriorly. A code STEMI was activated. He went emergently to the labor gang supervisor. He had one drug-eluting stent placed to the LAD. He was transferred to the ICU in stable condition. Echo showed EF 25-30%. He developed acute systolic CHF and was started on lasix and aldactone. Update: Patient fell at approximately 1600. nursing heard a loud nose and found laying on his right side. He was having right shoulder pain. He was unsure if he hit his head, Patient seen and examined at bedside. [place] of shortness of breath, no chest pain, no nausea, no vomiting, no diarrhea General: ill appearing, no distress, appears at stated age Derm: warm, dry Head: atraumatic, normocephalic, symmetric Eyes: EOMI, no lid lag, anicteric sclera Mouth: no lip lesion, mucus membranes moist Cardiovascular: S1S2 reg, no murmur, positive posterior tibial pulse bilateral, Lungs: decreased bs bilateral, no rhonchi, no rales , no accessory muscle use Abdominal: soft, nontender to palpation, no guarding, no appreciable organomegaly Ext: no gross muscle atrophy, no edema LE, + L hand swelling, no contractures Neuro: CN II-XI grossly intact, no focal neuro deficits Psych: Alert, oriented, appropriate affect ST segment elevated myocardial infarction status post PCI 1 to the LAD, ischemic cardiomyopathy -Aspirin, Lipitor, Lopressor (increased due to tachycardia), juan quintero -Telemetry -Cardiology recommendations - reperfusion arrhythmia requiring amio Fall with right shoulder -Shoulder x-ray -Continue with PT and OT -Fall Precautions -No arrhythmias on tele Hyperglycemia -Sliding-scale insulin -hemoglobin A1c 6.2 not consistent with DM Overweight BMI 30.9 - structured outpatient weight loss DVT prophylaxis: heparin Discussed with: patient Anticipated discharge date: 2-[address]: home A total of 35 minutes was spent on the care of this complex patient more than 50% of the time was spent in counseling and care coordination. Objective - Vital Signs Vital signs: Vital Signs Temp 97.8 F 06/16/20 08:30 Pulse 80 06/16/20 11:30 Resp 18 06/16/20 13:46 BP 101/59 06/16/20 11:30 Pulse Ox 95 06/16/20 11:30 Intake & Output 06/15/20 06/16/20 06/16/20 18:59 06:59 18:59 Intake Total 615 960 Output Total 650 100 425 Balance -35 -100 535 Weight 102 kg Intake: Oral 615 960 Output: Urine 650 100 425 Other: Voiding Method Indwelling Catheter Urinal # Voids 1 1 # Bowel Movements 1 1 - Labs CBC & Chem 7: 06/16/20 08:05 06/16/20 08:05 Labs: Abnormal Lab Results - Last 24 Hours (Table) 06/15/20 06/16/20 06/16/20 Range/Units 20:01 06:06 08:05 RBC 3.64 L (4.30-5.90) m/uL Hgb 11.7 L (13.0-17.5) gm/dL Hct 35.8 L (39.0-53.0) % Plt Count 146 L (150-450) k/uL Sodium (137-145) mmol/L Glucose (74-99) mg/dL POC Glucose (mg/dL) 172 H 124 H (75-99) mg/dL Calcium (8.4-10.2) mg/dL 06/16/20 06/16/20 Range/Units 08:05 16:06 RBC (4.30-5.90) m/uL Hgb (13.0-17.5) gm/dL Hct (39.0-53.0) % Plt Count (150-450) k/uL Sodium 131 L (137-145) mmol/L Glucose 172 H (74-99) mg/dL POC Glucose (mg/dL) 111 H (75-99) mg/dL Calcium 8.0 L (8.4-10.2) mg/dL
--- NOTE | 2020-06-16 17:54 | XR ---
EXAMINATION TYPE: XR shoulder complete RT DATE OF EXAM: 06/16/2020 CLINICAL HISTORY: Fall, possible dislocation TECHNIQUE: Internal rotation, external rotation, and scapular Y views of the right shoulder are obtai demarco. COMPARISON: Chest radiograph 06/13/2020 FINDINGS: There is no acute fracture/dislocation evident in the right shoulder. There is well-cortic ated chronic irregularity of the greater tubercle and calcification in the region of the rotator cuff . Degenerative spurring of the humeral head. The visualized ribs are intact and unremarkable. IMPRESSION: 1. No acute fracture or dislocation in the right shoulder. 2. Irregularity of the humeral head likely sequela of chronic rotator cuff pathology.
--- NOTE | 2020-06-16 18:00 | CT ---
EXAM: CT Head Without Intravenous Contrast CLINICAL HISTORY: Reason: fall, struck head TECHNIQUE: Axial computed tomography images of the head/brain without intravenous contrast. Sagittal and coronal reformatted images were created and reviewed. CTDI is 49.27 mGy and DLP is 1261.4 mGy-cm. This CT exam was performed using one or more of the following dose reduction techniques: automated exposure control, adjustment of the mA and/or kV according to patient size, and/or use of iterative reconstruction technique. COMPARISON: No relevant prior studies available. FINDINGS: Brain: Generalized parenchymal volume loss, likely age-related. No evidence of acute intracranial hemorrhage. No mass effect or midline shift. Ventricles: Symmetric distention of the lateral and 3rd ventricles, likely compensatory to the cerebral atrophy. Bones/joints: Unremarkable. No acute fracture. Soft tissues: Unremarkable. Sinuses: Unremarkable as visualized. No acute sinusitis. Mastoid air cells: Unremarkable as visualized. No mastoid effusion. Vascular: Atherosclerotic calcifications within the cavernous portions of bilateral ICAs. IMPRESSION: 1. No acute intracranial hemorrhage. No mass effect or midline shift.. 2. Generalized cerebral parenchymal volume loss, likely age-related. 3. Symmetric distention of the lateral and 3rd ventricles, likely compensatory to cerebral atrophy. Cannot exclude hydrocephalus.
[2020-06-16] MEDS: ACETAMINOPHEN TAB 325 MG TAB PO PRN (18:13)
[2020-06-16] MEDS: LOSARTAN 25 MG TAB PO SCH (19:43)
[2020-06-16 20:01] LABS: Glucose,Whole Blood 132 mg/dL (75-99)
[2020-06-17] MEDS: ALPRAZolam 0.25 MG TAB PO PRN ×2 (04:38→22:06)
[2020-06-17] MEDS: ACETAMINOPHEN TAB 325 MG TAB PO PRN ×2 (04:38→19:37)
[2020-06-17 06:23] LABS: Glucose,Whole Blood 103 mg/dL (75-99)
[2020-06-17] MEDS: INSULIN ASPART (NovoLOG) 100 UNIT/ML VIAL SQ SCH ×4 (06:28→22:01)
[2020-06-17 07:51] LABS: HCT 32.4 % (39.0-53.0); HGB 11.6 gm/dL (13.0-17.5); MCH 34.4 pg (25.0-35.0); MCHC 35.8 g/dL (31.0-37.0); MCV 96.2 fL (80.0-100.0); Mean Platelet Volume 8.3; Platelet Count 155 k/uL (150-450); RBC 3.37 m/uL (4.30-5.90); RDW 13.2 % (11.5-15.5); WBC 8.1 k/uL (3.8-10.6)
[2020-06-17 07:59] LABS: African American GFR (CKD) >90 (>60 ml/min/1.73 sqM); Anion Gap 6 mmol/L; Blood Urea Nitrogen 15 mg/dL (9-20); Calcium 7.8 mg/dL (8.4-10.2); Carbon Dioxide 23 mmol/L (22-30); Chloride 103 mmol/L (98-107); Glucose 97 mg/dL (74-99); Magnesium 2.1 mg/dL (1.6-2.3); Non-African American GFR(CKD) >90 (>60 ml/min/1.73 sqM); Potassium 3.3 mmol/L (3.5-5.1); Sodium 132 mmol/L (137-145)
[2020-06-17] MEDS ORDERED: POTASSIUM CHLORIDE ER 20 MEQ TAB.ER PO STA (08:07)
[2020-06-17] MEDS ORDERED: LOPERAMIDE 2 MG CAP PO STA (08:23)
[2020-06-17] MEDS: ATORVASTATIN 80 MG TAB PO SCH (08:55)
[2020-06-17] MEDS: ENOXAPARIN 40 MG/0.4 ML SYRINGE SQ SCH (08:55)
[2020-06-17] MEDS: ASPIRIN 81 MG PO SCH (08:55)
[2020-06-17] MEDS: METOPROLOL TARTRATE 25 MG TAB PO SCH ×2 (08:55→19:37)
[2020-06-17] MEDS: TICAGRELOR 90 MG TAB PO SCH ×2 (08:55→19:37)
[2020-06-17] MEDS: SPIRONOLACTONE 25 MG TAB PO SCH (08:55)
[2020-06-17] MEDS: FUROSEMIDE 40 MG TAB PO SCH ×2 (08:58→16:04)
--- NOTE | 2020-06-17 09:01 | P.PN ---
Subjective This is a pleasant 74-year-old male status post acute anterior wall myocardial infarction and stenting of the LAD. He is seen and examined sitting up in bed in no acute distress. Overall he feels as though his symptoms have improved however he has not really been up out of bed much. He states he does get up to the bathroom he does have some mild exertional shortness of breath however it improved since adding Aldactone yesterday. He has had no symptoms of chest discomfort. Blood pressure 91/53 heart rate 90 afebrile maintaining oxygen saturation on room air. Laboratory data reviewed, WBC 9.7, hemoglobin 11.7, platelets 146, sodium 131, potassium 3.7, creatinine 0.8, magnesium 2.1 and NT proBNP 7470. Chest x-ray performed last night reveals moderate interstitial edema superimposed infiltrates. Currently maintained on aspirin 81 mg daily, atorvastatin 80 mg daily, Lasix 20 mg by mouth twice a day, losartan 25 mg at bedtime, metoprolol 25 mg twice a day, Aldactone 12.5 mg daily and Brilinta 90 mg twice a day. Echocardiogram obtained on this admission reveals severely impaired LV systolic function with ejection fraction 25-30%, basal inferoseptal, mid inferior, mid appears septic, apical anterior, apical lateral, apical inferior and apical septal LV wall motion hypokinesia. Telemetry tracings reviewed, one isolated run of nonsustained ventricular tachycardia noted yesterday morning. 06/17/2020 Pt seen and examined sitting up eating breakfast in no acute distress. He states he fell yesterday while getting up and walking to the bathroom. He didn't get dizzy, just lost his footing apparently. CT brain was negative for an acute intracranial process and XR of the shoulder unremarkable. He denies chest pain, dizziness or palpitations. Breathing is stable. Blood pressure 109/65 heart rate 99 afebrile and maintaining oxygen saturation on room air. laboratory data reviewed, WBC 8.1, hemoglobin 11.6, platelets 155, sodium 132, potassium 3.3, magnesium 2.1,creatinine 0.75 and TSH 1.5. GENERAL: Well-appearing, well-nourished and in no acute distress. NECK: Supple without JVD or thyromegaly. LUNGS: Bibasliar rales, improved from yesterday however still present. Respiration equal and unlabored. No wheezes or rhonchi. HEART: Regular rate and rhythm without murmurs, rubs or gallops. S1 and S2 heard. EXTREMITIES: Normal range of motion, no edema. No clubbing or cyanosis. Peripheral pulses intact. Right radial access site soft, nontender with no evidence of hematoma or ecchymosis and strong distal pulses. ASSESSMENT ST elevated anterior wall myocardial infarction Ischemic cardiomyopathy Acute systolic heart failure Hypertension Dyslipidemia Nonsustained ventricular tachycardia PLAN Increase oral lasix to 40 mg BID. Give additional dose of potassium supplementation at noontime, 40MEQ. Repeat limited echo to assess LV function. If improvement he can likely be discharged home this afternoon. If not, he will require Life Vest prior to discharge. We will check the cost of brilinta prior to discharge. Nurse Practitioner note has been reviewed, I agree with a documented findings and plan of care. Patient was seen and examined. Objective - Vital Signs Vital signs: Vital Signs Temp 98.6 F 06/17/20 08:41 Pulse 99 06/17/20 08:41 Resp 18 06/17/20 08:41 BP 109/65 06/17/20 08:41 Pulse Ox 96 06/17/20 08:41 Intake & Output 06/16/20 06/17/20 06/17/20 18:59 06:59 18:59 Intake Total 1200 Output Total 775 800 Balance 425 -800 Weight 101.7 kg Intake: Oral 1200 Output: Urine 775 800 Uretheral (Mauro) 350 Other: Voiding Method Urinal Indwelling Catheter # Voids 1 # Bowel Movements 1 1 - Labs CBC & Chem 7: 06/17/20 06:29 06/17/20 06:29 Labs: Abnormal Lab Results - Last 24 Hours (Table) 06/16/20 06/16/20 06/17/20 Range/Units 16:06 20:00 06:21 RBC (4.30-5.90) m/uL Hgb (13.0-17.5) gm/dL Hct (39.0-53.0) % Sodium (137-145) mmol/L Potassium (3.5-5.1) mmol/L POC Glucose (mg/dL) 111 H 132 H 103 H (75-99) mg/dL Calcium (8.4-10.2) mg/dL 06/17/20 06/17/20 Range/Units 06:29 06:29 RBC 3.37 L (4.30-5.90) m/uL Hgb 11.6 L (13.0-17.5) gm/dL Hct 32.4 L (39.0-53.0) % Sodium 132 L (137-145) mmol/L Potassium 3.3 L (3.5-5.1) mmol/L POC Glucose (mg/dL) (75-99) mg/dL Calcium 7.8 L (8.4-10.2) mg/dL
[2020-06-17] MEDS ORDERED: POTASSIUM CHLORIDE ER 20 MEQ TAB.ER PO ONE (11:00)
[2020-06-17 11:29] LABS: Glucose,Whole Blood 98 mg/dL (75-99)
--- NOTE | 2020-06-17 12:41 | ECHOF ---
Referral Reason:lv function MEASUREMENTS -------- HEIGHT: 182.9 cm WEIGHT: 101.6 kg BP: 119/63 IVSd: 1.3 cm (0.6 - 1.1) LVIDd: 5.0 cm (3.9 - 5.3) LVPWd: 1.2 cm (0.6 - 1.1) IVSs: 1.4 cm LVIDs: 4.4 cm LVPWs: 1.4 cm FINDINGS -------- Sinus rhythm. Limited Study Overall left ventricular systolic function is moderate-severely impaired with, an EF between 30 - 35 %. Anterseptal Hypokinesis Inferior Hypokinesis [place] Hypokinesis. Anterior Hypokinesis 5.0mg of Lumason was utilized for enhancement of images There is no pericardial effusion. CONCLUSIONS -------- 1. Overall left ventricular systolic function is moderate-severely impaired with, an EF between 30 - 35 %. 2. Anterseptal Hypokinesis 3. Inferior Hypokinesis 4. [place] Hypokinesis. 5. Anterior Hypokinesis MERCHANDISE MANAGER: Luna Pitts [facility]
--- NOTE | 2020-06-17 15:36 | P.PN ---
Subjective Progress Note Date: 06/17/20 (Delayed charting seen at 0930) Principal diagnosis: chest pain Patient is a 74-year-old healthy male who presented to the emergency Department complaints of chest pain. On arrival to the ER his EKG showed ST segment elevation anteriorly. A code STEMI was activated. [facility]. He had one drug-eluting stent placed to the LAD. He was transferred to the ICU in stable condition. Echo showed EF 25-30%. He developed acute systolic CHF and was started on lasix and aldactone. He did have a fall on 06/16 without any significant injury. He underwent repeat echocardiogram which showed an ejection fraction of 30-35% and he will require LifeVest. Patient seen and examined at bedside. Breathing is better than yesterday, he is having some right shoulder pain, no nausea, no vomiting, no diarrhea. He is feeling well and wants to go home. General: Nontoxic, no distress, appears at stated age Derm: warm, dry Head: atraumatic, normocephalic, symmetric Eyes: EOMI, no lid lag, anicteric sclera Mouth: no lip lesion, mucus membranes moist Cardiovascular: S1S2 reg, no murmur, positive posterior tibial pulse bilateral, Lungs: decreased bs bilateral, no rhonchi, no rales , no accessory muscle use Abdominal: soft, nontender to palpation, no guarding, no appreciable organomegaly Ext: no gross muscle atrophy, 1+ edema bilateral lower extremities, no con tractures Neuro: CN II-XI grossly intact, no focal neuro deficits Psych: Alert, oriented, appropriate affect ST segment elevated myocardial infarction status post PCI 1 to the LAD, ischemic cardiomyopathy -Aspirin, Lipitor, Lopressor, cozaar, brilinta -Telemetry -Cardiology recommendations: Will need LifeVest - reperfusion arrhythmia requiring amio Decompensated systolic congestive heart failure with ejection fraction 30-35% -Lopressor, Cozaar, Lasix, Aldactone -Strict I's and O's -Daily weights Fall with right shoulder pain -Shoulder x-ray without definitive abnormality -Continue with PT and OT -Fall Precautions -No arrhythmias on tele Hyperglycemia -Sliding-scale insulin -hemoglobin A1c 6.2 not consistent with DM Overweight BMI 30.9 - structured outpatient weight loss DVT prophylaxis: heparin Discussed with: patient Anticipated discharge date: In a.m. with LifeVest and telehealth Anticipated discharge place: home A total of 35 minutes was spent on the care of this complex patient more than 50% of the time was spent in counseling and care coordination. Objective - Vital Signs Vital signs: Vital Signs Temp 98.5 F 06/17/20 11:35 Pulse 78 06/17/20 13:59 Resp 18 06/17/20 13:59 BP 105/65 06/17/20 11:35 Pulse Ox 97 06/17/20 11:35 Intake & Output 06/16/20 06/17/20 06/17/20 18:59 06:59 18:59 Intake Total 1200 480 Output Total 775 800 275 Balance 425 -800 205 Weight 101.7 kg Intake: Oral 1200 480 Output: Urine 775 800 275 Uretheral (Mauro) 350 Other: Voiding Method Urinal Indwelling Catheter Toilet # Voids 1 # Bowel Movements 1 1 1 - Labs CBC & Chem 7: 06/17/20 06:29 06/17/20 06:29 Labs: Abnormal Lab Results - Last 24 Hours (Table) 06/16/20 06/16/20 06/17/20 Range/Units 16:06 20:00 06:21 RBC (4.30-5.90) m/uL Hgb (13.0-17.5) gm/dL Hct (39.0-53.0) % Sodium (137-145) mmol/L Potassium (3.5-5.1) mmol/L POC Glucose (mg/dL) 111 H 132 H 103 H (75-99) mg/dL Calcium (8.4-10.2) mg/dL 06/17/20 06/17/20 Range/Units 06:29 06:29 RBC 3.37 L (4.30-5.90) m/uL Hgb 11.6 L (13.0-17.5) gm/dL Hct 32.4 L (39.0-53.0) % Sodium 132 L (137-145) mmol/L Potassium 3.3 L (3.5-5.1) mmol/L POC Glucose (mg/dL) (75-99) mg/dL Calcium 7.8 L (8.4-10.2) mg/dL
[2020-06-17 16:42] LABS: Glucose,Whole Blood 95 mg/dL (75-99)
[2020-06-17] MEDS: LOSARTAN 25 MG TAB PO SCH (19:37)
[2020-06-17 20:46] LABS: Glucose,Whole Blood 121 mg/dL (75-99)
[2020-06-17] MEDS: MELATONIN 5 MG TABLET PO PRN (22:06)
[2020-06-18 06:01] LABS: Glucose,Whole Blood 111 mg/dL (75-99)
[2020-06-18] MEDS: INSULIN ASPART (NovoLOG) 100 UNIT/ML VIAL SQ SCH (06:09)
[2020-06-18 08:15] LABS: African American GFR (CKD) >90 (>60 ml/min/1.73 sqM); Anion Gap 6 mmol/L; Blood Urea Nitrogen 13 mg/dL (9-20); Calcium 7.9 mg/dL (8.4-10.2); Carbon Dioxide 23 mmol/L (22-30); Chloride 104 mmol/L (98-107); Glucose 104 mg/dL (74-99); Magnesium 2.1 mg/dL (1.6-2.3); Non-African American GFR(CKD) 87 (>60 ml/min/1.73 sqM); Potassium 3.8 mmol/L (3.5-5.1); Sodium 133 mmol/L (137-145)
[2020-06-18] MEDS ORDERED: POTASSIUM CHLORIDE ER 20 MEQ TAB.ER PO STA (08:18)
[2020-06-18 08:23] VITALS: BP 105/59; PULSE 94; RESP 16; TEMP 97.7
[2020-06-18] MEDS: METOPROLOL TARTRATE 25 MG TAB PO SCH (08:23)
[2020-06-18] MEDS: SPIRONOLACTONE 25 MG TAB PO SCH (08:23)
[2020-06-18] MEDS: TICAGRELOR 90 MG TAB PO SCH (08:24)
[2020-06-18] MEDS: ATORVASTATIN 80 MG TAB PO SCH (08:24)
[2020-06-18] MEDS: ASPIRIN 81 MG PO SCH (08:24)
[2020-06-18] MEDS: FUROSEMIDE 40 MG TAB PO SCH (08:24)
[2020-06-18] MEDS: ENOXAPARIN 40 MG/0.4 ML SYRINGE SQ SCH (08:26)
--- NOTE | 2020-06-18 10:25 | P.PN ---
Subjective This is a pleasant 74-year-old male status post acute anterior wall myocardial infarction and stenting of the LAD. He is seen and examined sitting up in bed in no acute distress. Overall he feels as though his symptoms have improved however he has not really been up out of bed much. He states he does get up to the bathroom he does have some mild exertional shortness of breath however it improved since adding Aldactone yesterday. He has had no symptoms of chest discomfort. Blood pressure 91/53 heart rate 90 afebrile maintaining oxygen saturation on room air. Laboratory data reviewed, WBC 9.7, hemoglobin 11.7, platelets 146, sodium 131, potassium 3.7, creatinine 0.8, magnesium 2.1 and NT proBNP 7470. Chest x-ray performed last night reveals moderate interstitial edema superimposed infiltrates. Currently maintained on aspirin 81 mg daily, atorvastatin 80 mg daily, Lasix 20 mg by mouth twice a day, losartan 25 mg at bedtime, metoprolol 25 mg twice a day, Aldactone 12.5 mg daily and Brilinta 90 mg twice a day. Echocardiogram obtained on this admission reveals severely impaired LV systolic function with ejection fraction 25-30%, basal inferoseptal, mid inferior, mid appears septic, apical anterior, apical lateral, apical inferior and apical septal LV wall motion hypokinesia. Telemetry tracings reviewed, one isolated run of nonsustained ventricular tachycardia noted yesterday morning. 06/18/2020 Pt seen and examined sitting up in no acute distress. He states he slept well last night. No shortness of breath, chest pain, dizziness or palpitations. Blood pressure 105/59 heart rate 94 afebrile and maintaining oxygen saturation on room air. Repeat limited echo revealed ongoing impaired LV systolic function with EF 30-35%. No further episodes of ventricular tachycardia. Laboratory data reviewed, sodium 133, potassium 3.8, creatinine 0.84 and magnesium 2.1. GENERAL: Well-appearing, well-nourished and in no acute distress. NECK: Supple without JVD or thyromegaly. LUNGS: Clear to auscultation bilaterally. Respiration equal and unlabored. No wheezes, rales or rhonchi. HEART: Regular rate and rhythm without murmurs, rubs or gallops. S1 and S2 heard. EXTREMITIES: Normal range of motion, no edema. No clubbing or cyanosis. Peripheral pulses intact. Right radial access site soft, nontender with no evidence of hematoma or ecchymosis and strong distal pulses. ASSESSMENT ST elevated anterior wall myocardial infarction Ischemic cardiomyopathy Acute systolic heart failure Hypertension Dyslipidemia Nonsustained ventricular tachycardia PLAN Pt will require LifeVest prior to discharge to prevent sudden cardiac . Follow up with Dr. Silverman in the office in 1 week. Brilinta will be provided free for 30 days and he will be transitioned to plavix at that time in the office. Nurse Practitioner note has been reviewed, I agree with a documented findings and plan of care. Patient was seen and examined. Objective - Vital Signs Vital signs: Vital Signs Temp 98.9 F 06/17/20 19:45 Pulse 85 06/18/20 03:49 Resp 17 06/18/20 03:49 BP 102/58 06/18/20 03:49 Pulse Ox 95 06/18/20 03:49 Intake & Output 06/17/20 06/18/20 06/18/20 18:59 06:59 18:59 Intake Total 960 660 Output Total 275 Balance 685 660 Weight 100.9 kg Intake: Oral 960 660 Output: Urine 275 Other: Voiding Method Toilet Toilet # Voids 1 # Bowel Movements 1 - Labs CBC & Chem 7: 06/17/20 06:29 06/18/20 06:53 Labs: Abnormal Lab Results - Last 24 Hours (Table) 06/17/20 06/18/20 06/18/20 Range/Units 20:45 05:59 06:53 Sodium 133 L (137-145) mmol/L Glucose 104 H (74-99) mg/dL POC Glucose (mg/dL) 121 H 111 H (75-99) mg/dL Calcium 7.9 L (8.4-10.2) mg/dL
[2020-06-18 12:00] LABS: Glucose,Whole Blood 105 mg/dL (75-99)
[2020-06-18 12:57] VITALS: BMI 30.2
--- NOTE | 2020-06-18 19:59 | P.DS ---
Providers Date of admission: 06/13/20 13:04 Expected date of discharge: 06/18/20 Attending physician: Leonora Coffey DO Consults: 06/13/20 12:45 Consult Physician Stat Consulting Provider: [facility] Consult Reason/Comments: STEMI ACTIVATION COMPLETE Do you want consulting provider notified?: Yes Primary care physician: Krysta Martinez MD Hospital Course: Discharge Diagnosis: ST segment elevated myocardial infarction status post PCI 1 to the LAD, ischemic cardiomyopathy Decompensated systolic congestive heart failure with ejection fraction 30-35% Fall with right shoulder pain due to strain Hyperglycemia -hemoglobin A1c 6.2 not consistent with DM Overweight BMI 30.9 Hospital Course: Patient is a 74-year-old healthy male who presented to the emergency Department complaints of chest pain. On arrival to the ER his EKG showed ST segment elevation anteriorly. A code STEMI was activated. He went emergently to the [facility]. He had one drug-eluting stent placed to the LAD. He was transferred to the ICU in stable condition. Echo showed EF 25-30%. He developed acute systol ic CHF and was started on lasix and aldactone. He did have a fall on 06/16 without any significant injury. He underwent repeat echocardiogram which showed an ejection fraction of 30-35% and he will require LifeVest. He continued improvement and was determined stable for discharge Follow-up: Patient will have residential home care with [facility], he was instructed to take his weight daily and make a log, he was given a symptom tracker. He was given instructions on all of his medications which are new. He will follow-up with Dr. Martinez in 1-2 days, and Dr. Silverman in 1 week, reap t blood work to check potassium in 3 days. LifeVest on discharge. Patient seen and examined at bedside. Still having some shortness of breath which is improving daily, right shoulder was still with some pain, no nausea, no vomiting, no chest pain. Patient updated, called over the phone and all questions answered. Vital signs reviewed and stable. General: non toxic, no distress, appears at stated age Derm: warm, dry Head: atraumatic, normocephalic, symmetric Eyes: EOMI, no lid lag, anicteric sclera Mouth: no lip lesion, mucus membranes moist Cardiovascular: S1S2 reg, no murmur, positive posterior tibial pulse bilateral, Lungs: Crackles bilateral bases, no rhonchi, no rales , no accessory muscle use Abdominal: soft, nontender to palpation, no guarding, no appreciable organomeg shona Ext: no gross muscle atrophy, no edema, no contractures Neuro: CN II-XI grossly intact, no focal neuro deficits Psych: Alert, oriented, appropriate affect A total of 45 minutes of time were spent preparing this complex discharge summary . Patient Condition at Discharge: Stable Plan - Discharge Summary Discharge Rx Participant: Yes New Discharge Prescriptions: New Ticagrelor [Brilinta] 90 mg PO BID #60 tab Spironolactone [Aldactone] 12.5 mg PO DAILY #30 tab Furosemide [Lasix] 40 mg PO BID@0900,1600 #60 tab Atorvastatin [Lipitor] 80 mg PO DAILY #30 tab Metoprolol Tartrate [Lopressor] 25 mg PO BID #60 tab Nitroglycerin Sl Tabs [Nitrostat] 0.4 mg SUBLINGUAL Q5M PRN #7 tab PRN Reason: Chest Pain Aspirin 81 mg PO DAILY #30 chew Losartan [Cozaar] 25 mg PO HS #30 tab Discontinued Ibuprofen [Motrin Ib] 200 - 800 mg PO Q8H PRN PRN Reason: Pain Discharge Medication List Ticagrelor [Brilinta] 90 mg PO BID #60 tab 06/17/20 [Rx] Aspirin 81 mg PO DAILY #30 chew 06/18/20 [Rx] Atorvastatin [Lipitor] 80 mg PO DAILY #30 tab 06/18/20 [Rx] Furosemide [Lasix] 40 mg PO BID@0900,1600 #60 tab 06/18/20 [Rx] Losartan [Cozaar] 25 mg PO HS #30 tab 06/18/20 [Rx] Metoprolol Tartrate [Lopressor] 25 mg PO BID #60 tab 06/18/20 [Rx] Nitroglycerin Sl Tabs [Nitrostat] 0.4 mg SUBLINGUAL Q5M PRN #7 tab 06/18/20 [Rx] Spironolactone [Aldactone] 12.5 mg PO DAILY #30 tab 06/18/20 [Rx] Follow up Appointment(s)/Referral(s): Krysta Martinez MD [Primary Care Provider] - 1-2 days (office was closed-please call for follow-up) [facility] [NON-STAFF] - Bentley Silverman MD [STAFF PHYSICIAN] - 1 Week (The office will call you with appointment date and time.) Ambulatory/Diagnostic Orders: Basic Metabolic Panel [LAB.AMB] Time Frame: 3 Days, Location: None Selected Patient Instructions/Handouts: Heart Attack (DC), Heart Healthy Diet (DC), Coronary Intravascular Stent Placement (DC) Activity/Diet/Wound Care/Special Instructions: Brilinta filled at [facility] using free 30 day coupon Activity: as tolerated Diet: heart healthy Special Instructions: lab work in 3-5 days Discharge Disposition: HOME WITH HOME HEALTH SERVICES
== END 2020-06-18 13:18 | disposition home health service (06) | DRG 246 ==
LOC: EC 12:40 → 2SICU 13:04 → 3SCARD 06-15 14:41
PROVIDERS: ADMIT Internal Medicine; ATTEND Internal Medicine
PROC: 4A023N7 Measurement of Cardiac Sampling and Pressure, Left Heart, Percutaneous Approach (ICD-10-PCS; principal; 2020-06-13 13:10)
PROC: B2111ZZ Fluoroscopy of Multiple Coronary Arteries using Low Osmolar Contrast (ICD-10-PCS; principal; 2020-06-13 13:10)
PROC: 027035Z Dilation of Coronary Artery, One Artery with Two Drug-eluting Intraluminal Devices, Percutaneous Approach (ICD-10-PCS; 2020-06-13 13:10)
DX: I21.09 ST elevation (STEMI) myocardial infarction involving other coronary artery of anterior wall (principal); I50.23 Acute on chronic systolic (congestive) heart failure; I47.2 Ventricular tachycardia; I11.0 Hypertensive heart disease with heart failure; I95.9 Hypotension, unspecified; I25.10 Atherosclerotic heart disease of native coronary artery without angina pectoris; I25.5 Ischemic cardiomyopathy; E78.5 Hyperlipidemia, unspecified; R73.9 Hyperglycemia, unspecified; S46.911A Strain of unspecified muscle, fascia and tendon at shoulder and upper arm level, right arm, initial encounter; E66.3 Overweight; Z68.30 Body mass index [BMI] 30.0-30.9, adult; Z71.3 Dietary counseling and surveillance; Z87.891 Personal history of nicotine dependence; Z87.19 Personal history of other diseases of the digestive system; Z86.69 Personal history of other diseases of the nervous system and sense organs; Z87.39 Personal history of other diseases of the musculoskeletal system and connective tissue; Z98.42 Cataract extraction status, left eye; Z98.41 Cataract extraction status, right eye; Z98.890 Other specified postprocedural states; W19.XXXA Unspecified fall, initial encounter; Y93.01 Activity, walking, marching and hiking; Y92.230 Patient room in hospital as the place of occurrence of the external cause; Z82.49 Family history of ischemic heart disease and other diseases of the circulatory system
CPT/HCPCS: 36415; 70450; 71045; 71046; 80048; 80053; 80061; 83036; 83735; 83880; 84443; 84484; 85025; 85027; 85610; 85730; 93005; 93306; 93308; 93454; 96374; 96375; 99285

== ENCOUNTER → 2020-07-28 | Outpatient (CLI) | payer MEDICARE ==
--- NOTE | 2020-07-28 13:03 | US ---
EXAMINATION TYPE: US venous doppler duplex LE DATE OF EXAM: 07/28/2020 12:11 PM COMPARISON: NONE CLINICAL HISTORY: M79.669 Pain in unspecified lower leg. left greater than right calf pain SIDE PERFORMED: Bilateral TECHNIQUE: The lower extremity deep venous system is examined utilizing real time linear array sonog cheryl with graded compression, doppler sonography and color-flow sonography. VESSELS IMAGED: Common Femoral Vein Deep Femoral Vein Greater Saphenous Vein * Femoral Vein Popliteal Vein Small Saphenous Vein * Proximal Calf Veins (* superficial vessels) Right Leg: Negative for DVT Left Leg: Negative for DVT Grayscale, color doppler, spectral doppler imaging performed of the deep veins of the bilateral lower extremities. There is normal flow, compressibility, vascular waveforms. IMPRESSION: No ultrasound evidence for acute DVT in either lower extremity.
== END | disposition home or self-care (01) ==
LOC: RADUSWWP 11:47
PROVIDERS: ATTEND Internal Medicine
DX: M79.661 Pain in right lower leg (principal); M79.662 Pain in left lower leg
CPT/HCPCS: 93970

== ENCOUNTER 2020-09-21 13:36 | Emergency (ER) | payer MEDICARE ==
[2020-09-21 13:45] VITALS: BP 119/80; PULSE 88; RESP 19; TEMP 98
--- NOTE | 2020-09-21 14:03 | ED ---
General Adult HPI - General Chief complaint: Fall Stated complaint: fall, head injury Time Seen by Provider: 09/21/20 13:40 Source: patient, RN notes reviewed, old records reviewed Mode of arrival: ambulatory Limitations: no limitations - History of Present Illness Initial comments: This is a 75-year-old male who presents emergency department after having fallen down 2 steps. Patient states he was walking down the steps he lost his balance and fell onto his right side he hit the right side of his head slightly he denies any loss of consciousness or being dazed at any period of time. Patient states currently he has no headache. Patient denies any neck pain. Patient denies numbness weakness. Patient does complain of some right shoulder pain a nteriorly and some lateral elbow pain on the right. Patient also complains of soreness to both knees consistent with abrasions that he has suffered. Patient denies any back pain and its new patient denies any chest pain or abdominal pain patient denies any hip pain that is new. Patient is able to ambulate by himself he got himself up from the wheelchair and walked to the bed. Patient is on Sabrina linta - Related Data Previous Rx's Medication Instructions Recorded Ticagrelor [Brilinta] 90 mg PO BID #60 tab 06/17/20 Aspirin 81 mg PO DAILY #30 chew 06/18/20 Atorvastatin [Lipitor] 80 mg PO DAILY #30 tab 06/18/20 Furosemide [Lasix] 40 mg PO BID@0900,1600 #60 tab 06/18/20 Losartan [Cozaar] 25 mg PO HS #30 tab 06/18/20 Metoprolol Tartrate [Lopressor] 25 mg PO BID #60 tab 06/18/20 Nitroglycerin Sl Tabs [Nitrostat] 0.4 mg SUBLINGUAL Q5M PRN #7 tab 06/18/20 Spironolactone [Aldactone] 12.5 mg PO DAILY #30 tab 06/18/20 Allergies Allergy/AdvReac Type Severity Reaction Status Date / Time No Known Allergies Allergy Verified 06/13/20 12:52 Review of Systems ROS Statement: Those systems with pertinent positive or pertinent negative responses have been documented in the HPI. ROS Other: All systems not noted in ROS Statement are negative. Past Medical History Past Medical History: No Reported History, Myocardial Infarction ([place]) History of Any Multi-Drug Resistant Organisms: None Reported Additional Past Surgical History / Comment(s): hernia Injuinal left and right , shoulder X 3. cataracts, macular repair. back Past Psychological History: No Psychological Hx Reported Smoking Status: Former smoker Past Alcohol Use History: Occasional Past Drug Use History: None Reported - Past Family History Father Additional Family Medical History / Comment(s): CHF, valvular heart disease General Exam - General Exam Comments Initial Comments: GENERAL: Patient is well-developed and well-nourished. Patient is nontoxic and well- hydrated and is in mild distress. Patient has a very superficial abrasion on the right temporal region of the head. ENT: Neck is soft and supple. No significant lymphadenopathy is noted. Oropharynx is clear. Moist mucous membranes. Neck has full range of motion without eliciting any pain. EYES: The sclera were anicteric and conjunctiva were pink and moist. Extraocular movements were intact and pupils were equal round and reactive to light. Eyelids were unremarkable. PULMONARY: Unlabored respirations. Good breath sounds bilaterally. No audible rales rhonchi or wheezing was noted. CARDIOVASCULAR: There is a regular rate and rhythm without any murmurs gallops or rubs. Femoral pulses are equal bilaterally ABDOMEN: Soft and nontender with normal bowel sounds. No palpable organomegaly was noted. There is no palpable pulsatile mass. SKIN: Patient has superficial abrasions to the anterior aspects of both knees patient. Patient has a small hematoma to the anterior aspect of the right knee. Patient has an abrasion to the lateral aspect of the right elbow NEUROLOGIC: Patient is alert and oriented x3. Cranial nerves II through XII are grossly intact. Motor and sensory are also intact. Normal speech, volume and content. Symmetrical smile. MUSCULOSKELETAL: Normal extremities with adequate strength and full range of motion. Patient's anterior and lateral tenderness to the elbow and shoulder on the right LYMPHATICS: No significant lymphadenopathy is noted PSYCHIATRIC: Normal psychiatric evaluation. Limitations: no limitations Course Vital Signs 09/21/20 13:38 Temperature 98.0 F Pulse Rate 88 Respiratory 19 Rate Blood Pressure 119/80 O2 Sat by Pulse 97 Oximetry Medical Decision Making - Medical Decision Making EKG shows normal sinus rhythm at 62 bpm IN interval is 194 QRS is 92 QT interval is 432 QTC is 438. Patient's EKG shows biphasic T waves in V2 and V3 however patient is expressing any chest pain and has not experience any chest pain today. X-rays of the elbow chest and pelvis showed no acute abnormality. X-ray of the shoulder shows a cortical fracture and recommend CT I did a CAT scan it shows no acute fracture. CT of the head shows no acute abnormality. - Lab Data Result diagrams: 09/21/20 14:16 09/21/20 10:34 Lab Results 09/21/20 09/21/20 09/21/20 Range/Units 10:34 13:57 14:16 WBC 4.2 (3.8-10.6) k/uL RBC 4.08 L (4.30-5.90) m/uL Hgb 13.8 (13.0-17.5) gm/dL Hct 40.9 (39.0-53.0) % MCV 100.2 H (80.0-100.0) fL MCH 33.8 (25.0-35.0) pg MCHC 33.7 (31.0-37.0) g/dL RDW 13.6 (11.5-15.5) % Plt Count 199 (150-450) k/uL MPV 7.8 Neutrophils % 72 % Lymphocytes % 15 % Monocytes % 7 % Eosinophils % 3 % Basophils % 0 % Neutrophils # 3.0 (1.3-7.7) k/uL Lymphocytes # 0.6 L (1.0-4.8) k/uL Monocytes # 0.3 (0-1.0) k/uL Eosinophils # 0.1 (0-0.7) k/uL Basophils # 0.0 (0-0.2) k/uL PT (9.0-12.0) sec INR (<1.2) APTT (22.0-30.0) sec Sodium 134 L (137-145) mmol/L Potassium 4.1 (3.5-5.1) mmol/L Chloride 104 (98-107) mmol/L Carbon Dioxide 22 (22-30) mmol/L Anion Gap 8 mmol/L BUN 18 (9-20) mg/dL Creatinine 0.79 (0.66-1.25) mg/dL Est GFR (CKD-EPI)AfAm >90 (>60 ml/min/1.73 sqM) Est GFR (CKD-EPI)NonAf 89 (>60 ml/min/1.73 sqM) Glucose 123 H (74-99) mg/dL POC Glucose (mg/dL) 123 H (75-99) mg/dL POC Glu Corporate General Manager ID Karen Duong Calcium 9.3 (8.4-10.2) mg/dL Total Bilirubin 0.6 (0.2-1.3) mg/dL AST 26 (17-59) U/L ALT 19 (4-49) U/L Alkaline Phosphatase 88 (38-126) U/L Troponin I (0.000-0.034) ng/mL Total Protein 6.2 L (6.3-8.2) g/dL Albumin 3.7 (3.5-5.0) g/dL Urine Color Urine Appearance (Clear) Urine pH (5.0-8.0) Ur Specific [employer] (1.001-1.035) Urine Protein (Negative) Urine Glucose (UA) (Negative) Urine Ketones (Negative) Urine Blood (Negative) Urine Nitrite (Negative) Urine Bilirubin (Negative) Urine Urobilinogen (<2.0) mg/dL Ur Leukocyte Esterase (Negative) Urine Opiates Screen (NotDetected) Ur Oxycodone Screen (NotDetected) Urine Methadone Screen (NotDetected) Ur Propoxyphene Screen (NotDetected) Ur Barbiturates Screen (NotDetected) U Tricyclic Antidepress (NotDetected) Ur Phencyclidine Scrn (NotDetected) Ur Amphetamines Screen (NotDetected) U Methamphetamines Scrn (NotDetected) U Benzodiazepines Scrn (NotDetected) Urine Cocaine Screen (NotDetected) U Marijuana (THC) Screen (NotDetected) Serum Alcohol <10 mg/dL Blood Type Blood Type Confirm Blood Type Recheck Bld Type Recheck Status Antibody Screen Spec Expiration Date 09/21/20 09/21/20 09/21/20 Range/Units 14:16 14:16 14:16 WBC (3.8-10.6) k/uL RBC (4.30-5.90) m/uL Hgb (13.0-17.5) gm/dL Hct (39.0-53.0) % MCV (80.0-100.0) fL MCH (25.0-35.0) pg MCHC (31.0-37.0) g/dL RDW (11.5-15.5) % Plt Count (150-450) k/uL MPV Neutrophils % % Lymphocytes % % Monocytes % % Eosinophils % % Basophils % % Neutrophils # (1.3-7.7) k/uL Lymphocytes # (1.0-4.8) k/uL Monocytes # (0-1.0) k/uL Eosinophils # (0-0.7) k/uL Basophils # (0-0.2) k/uL PT 10.8 (9.0-12.0) sec INR 1.0 (<1.2) APTT 24.0 (22.0-30.0) sec Sodium (137-145) mmol/L Potassium (3.5-5.1) mmol/L Chloride (98-107) mmol/L Carbon Dioxide (22-30) mmol/L Anion Gap mmol/L BUN (9-20) mg/dL Creatinine (0.66-1.25) mg/dL Est GFR (CKD-EPI)AfAm (>60 ml/min/1.73 sqM) Est GFR (CKD-EPI)NonAf (>60 ml/min/1.73 sqM) Glucose (74-99) mg/dL POC Glucose (mg/dL) (75-99) mg/dL POC Glu Corporate General Manager ID Calcium (8.4-10.2) mg/dL Total Bilirubin (0.2-1.3) mg/dL AST (17-59) U/L ALT (4-49) U/L Alkaline Phosphatase (38-126) U/L Troponin I 0.017 (0.000-0.034) ng/mL Total Protein (6.3-8.2) g/dL Albumin (3.5-5.0) g/dL Urine Color Light Yellow Urine Appearance Clear (Clear) Urine pH 6.0 (5.0-8.0) Ur Specific [employer] 1.008 (1.001-1.035) Urine Protein Negative (Negative) Urine Glucose (UA) Negative (Negative) Urine Ketones Negative (Negative) Urine Blood Negative (Negative) Urine Nitrite Negative (Negative) Urine Bilirubin Negative (Negative) Urine Urobilinogen <2.0 (<2.0) mg/dL Ur Leukocyte Esterase Negative (Negative) Urine Opiates Screen Not Detected (NotDetected) Ur Oxycodone Screen Not Detected (NotDetected) Urine Methadone Screen Not Detected (NotDetected) Ur Propoxyphene Screen Not Detected (NotDetected) Ur Barbiturates Screen Not Detected (NotDetected) U Tricyclic Antidepress Not Detected (NotDetected) Ur Phencyclidine Scrn Not Detected (NotDetected) Ur Amphetamines Screen Not Detected (NotDetected) U Methamphetamines Scrn Not Detected (NotDetected) U Benzodiazepines Scrn Not Detected (NotDetected) Urine Cocaine Screen Not Detected (NotDetected) U Marijuana (THC) Screen Not Detected (NotDetected) Serum Alcohol mg/dL Blood Type Blood Type Confirm Blood Type Recheck Bld Type Recheck Status Antibody Screen Spec Expiration Date 09/21/20 09/21/20 Range/Units 14:16 15:00 WBC (3.8-10.6) k/uL RBC (4.30-5.90) m/uL Hgb (13.0-17.5) gm/dL Hct (39.0-53.0) % MCV (80.0-100.0) fL MCH (25.0-35.0) pg MCHC (31.0-37.0) g/dL RDW (11.5-15.5) % Plt Count (150-450) k/uL MPV Neutrophils % % Lymphocytes % % Monocytes % % Eosinophils % % Basophils % % Neutrophils # (1.3-7.7) k/uL Lymphocytes # (1.0-4.8) k/uL Monocytes # (0-1.0) k/uL Eosinophils # (0-0.7) k/uL Basophils # (0-0.2) k/uL PT (9.0-12.0) sec INR (<1.2) APTT (22.0-30.0) sec Sodium (137-145) mmol/L Potassium (3.5-5.1) mmol/L Chloride (98-107) mmol/L Carbon Dioxide (22-30) mmol/L Anion Gap mmol/L BUN (9-20) mg/dL Creatinine (0.66-1.25) mg/dL Est GFR (CKD-EPI)AfAm (>60 ml/min/1.73 sqM) Est GFR (CKD-EPI)NonAf (>60 ml/min/1.73 sqM) Glucose (74-99) mg/dL POC Glucose (mg/dL) (75-99) mg/dL POC Glu Corporate General Manager ID Calcium (8.4-10.2) mg/dL Total Bilirubin (0.2-1.3) mg/dL AST (17-59) U/L ALT (4-49) U/L Alkaline Phosphatase (38-126) U/L Troponin I (0.000-0.034) ng/mL Total Protein (6.3-8.2) g/dL Albumin (3.5-5.0) g/dL Urine Color Urine Appearance (Clear) Urine pH (5.0-8.0) Ur Specific [employer] (1.001-1.035) Urine Protein (Negative) Urine Glucose (UA) (Negative) Urine Ketones (Negative) Urine Blood (Negative) Urine Nitrite (Negative) Urine Bilirubin (Negative) Urine Urobilinogen (<2.0) mg/dL Ur Leukocyte Esterase (Negative) Urine Opiates Screen (NotDetected) Ur Oxycodone Screen (NotDetected) Urine Methadone Screen (NotDetected) Ur Propoxyphene Screen (NotDetected) Ur Barbiturates Screen (NotDetected) U Tricyclic Antidepress (NotDetected) Ur Phencyclidine Scrn (NotDetected) Ur Amphetamines Screen (NotDetected) U Methamphetamines Scrn (NotDetected) U Benzodiazepines Scrn (NotDetected) Urine Cocaine Screen (NotDetected) U Marijuana (THC) Screen (NotDetected) Serum Alcohol mg/dL Blood Type O Positive Blood Type Confirm O Positive Blood Type Recheck No Previous Record Bld Type Recheck Status CABO Indicated Antibody Screen NEGATIVE Spec Expiration Date 09/24/20202315 Disposition Clinical Impression: Fall, Rotator cuff injury, Multiple contusions, Abrasion Disposition: HOME SELF-CARE Condition: Good Instructions (If sedation given, give patient instructions): Fall Prevention for Older Adults (ED) Is patient prescribed a controlled substance at d/c from ED?: No Referrals: Krysta Maritnez MD [Primary Care Provider] - 1-2 days Time of Disposition: 16:57
[2020-09-21 14:04] LABS: Glucose,Whole Blood 123 mg/dL (75-99)
[2020-09-21 14:31] LABS: Basophils % (A) 0 %; Eosinophils # (A) 0.1 k/uL (0-0.7); Eosinophils % (A) 3 %; HCT 40.9 % (39.0-53.0); HGB 13.8 gm/dL (13.0-17.5); Lymphocytes # (A) 0.6 k/uL (1.0-4.8); Lymphocytes % (A) 15 %; MCH 33.8 pg (25.0-35.0); MCHC 33.7 g/dL (31.0-37.0); MCV 100.2 fL (80.0-100.0); Mean Platelet Volume 7.8; Monocytes # (A) 0.3 k/uL (0-1.0); Monocytes % (A) 7 %; Neutrophils % (A) 72 %; Platelet Count 199 k/uL (150-450); RBC 4.08 m/uL (4.30-5.90); RDW 13.6 % (11.5-15.5); WBC 4.2 k/uL (3.8-10.6)
--- NOTE | 2020-09-21 14:47 | CT ---
EXAMINATION TYPE: CT brain wo con DATE OF EXAM: 09/21/2020 COMPARISON: 06/16/2020 INDICATION: fall, loss of balance DLP: 1188.4 mGycm, Automated exposure control for dose reduction was used. CONTRAST: None CT of the brain is performed utilizing 3 mm thick sections through the posterior fossa and 3 mm thick sections through the remaining calvarium. Study is performed within 24 hours of arrival to the hosp ital. No abnormal hyperdensity is present to suggest an acute intracranial hemorrhage. No mass lesion is evident. No acute infarcts are evident. Sulci are mildly prominent for patient age. There is diffuse fullness through the lateral third and f ourth ventricles. No temporal horn dilatation is evident suggest hydrocephalus. Findings appear stabl e from comparison Paranasal sinuses and mastoid air cells within the [id number] are clear. IMPRESSIONS: 1. Mild atrophy, stable
[2020-09-21 14:49] LABS: ALT 19 U/L (4-49); AST 26 U/L (17-59); African American GFR (CKD) >90 (>60 ml/min/1.73 sqM); Albumin 3.7 g/dL (3.5-5.0); Alcohol <10 mg/dL; Alkaline Phosphatase 88 U/L (38-126); Anion Gap 8 mmol/L; Blood Urea Nitrogen 18 mg/dL (9-20); Calcium 9.3 mg/dL (8.4-10.2); Carbon Dioxide 22 mmol/L (22-30); Chloride 104 mmol/L (98-107); Glucose 123 mg/dL (74-99); Non-African American GFR(CKD) 89 (>60 ml/min/1.73 sqM); Potassium 4.1 mmol/L (3.5-5.1); Sodium 134 mmol/L (137-145); Total Bilirubin 0.6 mg/dL (0.2-1.3); Total Protein 6.2 g/dL (6.3-8.2)
[2020-09-21 14:52] LABS: Prothrombin Time 10.8 sec (9.0-12.0)
--- NOTE | 2020-09-21 15:10 | XR ---
EXAMINATION TYPE: XR chest 1V portable DATE OF EXAM: 09/21/2020 COMPARISON: Chest x-ray 06/15/2020 HISTORY: Trauma and pain TECHNIQUE: Single frontal view of the chest is obtained. FINDINGS: There is no focal air space opacity, pleural effusion, or pneumothorax seen. There is sub segmental basilar atelectatic change. The cardiac silhouette size is stable, patient is rotated. Ther e is eventration of the right hemidiaphragm. The osseous structures are intact. IMPRESSION: Suspect some basilar atelectasis, rotated exam, follow-up PA and lateral chest x-ray as indicated.
--- NOTE | 2020-09-21 15:13 | XR ---
EXAMINATION TYPE: XR shoulder complete RT DATE OF EXAM: 09/21/2020 COMPARISON: NONE HISTORY: Pain TECHNIQUE: Three views are submitted. FINDINGS: The osseous structures are intact. There is no acute fracture or dislocation. AC joint appears to be widening there is hypertrophic spur formation. Mild diffuse osteopenia. Question subtle deformity of the glenoid. IMPRESSION: 1. AC joint arthropathy correlate for AC joint separation. Findings could be chronic and are similar to the prior exam of 06/16/2020. Humeral head is high riding in position consider rotator cuff tear. 2. subtle irregularity of the glenoid on the oblique view. If there is point tenderness correlate wit h CT scan to exclude fracture.
--- NOTE | 2020-09-21 15:13 | XR ---
AP pelvis HISTORY: Trauma and pain frontal view of the pelvis and 2 images There is a scoliotic curvature the lumbar spine with extensive degenerative disc change, facet arthro mago, hypertrophic spondylosis. Bone mineralization within the pelvis is mildly reduced. Joint space s and alignment are maintained. Some prominence along the left femoral neck could be indicative of fe moral acetabular impingement. There is a tilt to the pelvis. IMPRESSION: No acute fracture or dislocation. Rotated exam.
--- NOTE | 2020-09-21 15:15 | XR ---
Right elbow HISTORY: Trauma and pain 3 views of the right elbow Calcification present at the level of the triceps insertion. There are hypertrophic changes present a t the elbow joint, multiple ossific densities about the elbow are well-corticated and not felt likely to be acute. Alignment is maintained. Joint space loss is noted. Difficult to exclude joint effusion . IMPRESSION: Osteoarthritis. No acute fracture or dislocation is evident. MRI may be of benefit as ind icated.
[2020-09-21 15:25] LABS: Appearance,Urine Clear (Clear); Bilirubin,Urine Negative (Negative); Blood,Urine Negative (Negative); Color,Urine Light Yellow; Glucose,Urine (UA) Negative (Negative); Ketones,Urine Negative (Negative); Leukocyte Esterase,Urine Negative (Negative); Nitrite,Urine Negative (Negative); Protein,Urine Negative (Negative); Specific Gravity,Urine 1.008 (1.001-1.035); Urobilinogen,Urine <2.0 mg/dL (<2.0)
[2020-09-21 15:31] LABS: Amphetamine Screen,Urine Not Detected (NotDetected); Barbiturate Screen,Urine Not Detected (NotDetected); Benzodiazepines Screen,Urine Not Detected (NotDetected); Cocaine Screen,Urine Not Detected (NotDetected); Methadone Screen, Urine Not Detected (NotDetected); Opiate Screen,Urine Not Detected (NotDetected); Oxycodone Screen, Urine Not Detected (NotDetected); Phencyclidine Screen,Urine Not Detected (NotDetected); Tricyclic Antidepressant,Urine Not Detected (NotDetected); Urn Cannabinoid Scrn Not Detected (NotDetected)
--- NOTE | 2020-09-21 16:38 | CT ---
EXAMINATION TYPE: CT shoulder RT wo con DATE OF EXAM: 09/21/2020 COMPARISON: HISTORY: right shoulder pain following fall CT DLP: 493 mGycm Automated exposure control for dose reduction was used. Contrast: None Technique: Axial images 3 mm thick sections. Reconstructed images in the coronal and sagittal planes. FINDINGS: Humeral articulation with the glenoid. Some osteoarthritic degenerative type changes likely present a t the glenohumeral junction. Acromioclavicular Junction degenerative changes may be present. There is downward sloping of the acromion which can contribute to impingement syndrome. The acromiohumeral sp bronson is narrowed at 0.5 cm anteriorly superiorly. No acute fractures are identified. Three-D reconstructed images performed by the technologist on a separate computer reviewed on the com puter. IMPRESSION: 1. NO ACUTE OSSEOUS ABNORMALITY. ACUTE FRACTURE IS NOT IDENTIFIED. 2. DEGENERATIVE CHANGES AT THE GLENOHUMERAL JOINT SPACE IS PRESENT. 3. SUSPECTED NARROWING OF THE ACROMIOHUMERAL SPACE. IF ADDITIONAL EVALUATION FOR ROTATOR CUFF TEAR IS REQUIRED, MRI COULD BE PERFORMED. 4. ACROMIOCLAVICULAR JUNCTION WITH DEGENERATIVE CHANGES LIKELY PRESENT
== END 2020-09-21 17:25 | disposition home or self-care (01) ==
LOC: EC 13:36
DX: S80.01XA Contusion of right knee, initial encounter (principal); S80.212A Abrasion, left knee, initial encounter; S50.311A Abrasion of right elbow, initial encounter; S00.81XA Abrasion of other part of head, initial encounter; S46.001A Unspecified injury of muscle(s) and tendon(s) of the rotator cuff of right shoulder, initial encounter; I25.2 Old myocardial infarction; Z87.891 Personal history of nicotine dependence; Z79.82 Long term (current) use of aspirin; Z79.899 Other long term (current) drug therapy; Z82.49 Family history of ischemic heart disease and other diseases of the circulatory system; W10.9XXA Fall (on) (from) unspecified stairs and steps, initial encounter; Y93.01 Activity, walking, marching and hiking
CPT/HCPCS: 36415; 93005; 86900; 86901; 80053; 84484; 85025; 85610; 85730; 86850; 81003; 80306; 72170; 73030; 73080; 71045; 70450; 73200; 99284; G0480; 80320

== ENCOUNTER → 2020-11-15 | Outpatient (CLI) | payer MEDICARE ==
[2020-11-15 11:33] VITALS: BP 99/61; PULSE 92; RESP 18; TEMP 98.1
--- NOTE | 2020-11-15 12:04 | P.PAINCN ---
History of Present Illness - Reason for Consult Consult date: 11/15/20 lumbar back pain, and left sideleg pain - Chief Complaint lumbar back pain, and left leg pain - History of Present Illness Mr. Ontiveros is a 75-year-old pleasant male came to the [facility] pain clinic for for initial evaluation for his low back pain, pain radiating to left lower extremity . Patient has ongoing pain for many years. patient had laminectomy at L3-L4, and L4-L5 levels in 2009. Patient describes pain is aching, throbbing, constant type of pain. Pain is radiating to lateral side of the left leg. sometimes it's causing numbness and tingling sensation. Patient rated pain levels are7-8 out of 10 in severity. With the help of medications pain levels are 4-6 out of 10 in severity. Patient is taking tramadol as needed for pain. Activities making pain worse. Medications, resting, Interventional procedures helping in relieving patient's pain. patient [facility]. Which helped to some extent relieving his pain. Patient pain some days better than others. Overall activities decreased secondary to pain. Because of the pain sometimes patient is feeling lack of sleep, interest, and energy. Denied any bowel or bladder problems at this time. Patient is using cane as needed for walking support. Patient denies any suicidal or homicidal ideations intent or plan. Patient denies any auditory or visual hallucinations. Patient denied any red flag symptoms related to pain. Review of Systems All systems: negative Constitutional: Denies chills, Denies fever Eyes: denies blurred vision, denies pain Ears, nose, mouth and throat: Denies headache, Denies sore throat Cardiovascular: Denies chest pain, Denies shortness of breath Respiratory: Denies cough Gastrointestinal: Denies abdominal pain, Denies diarrhea, Denies nausea, Denies vomiting Musculoskeletal: Denies myalgias Integumentary: Denies pruritus, Denies rash Neurological: Reports numbness, Denies weakness Psychiatric: Denies anxiety, Denies depression Endocrine: Denies fatigue, Denies weight change Past Medical History Past Medical History: Cancer, GERD/Reflux, Hyperlipidemia, Hypertension, Myocardial Infarction (RI), Musculoskeletal Disorder, Osteoarthritis (OA), Prostate Disorder Additional Past Medical History / Comment(s): SOB w/exertion, hx. skin cancer, tended to run low BP in the past-had passed out in the past w/low BP, scoliosis, spondylolithesis Last Myocardial Infarction Date:: 06-13-20 History of Any Multi-Drug Resistant Organisms: None Reported Past Surgical History: Back Surgery, Heart Catheterization With Stent, Hernia Repair, Orthopedic Surgery Additional Past Surgical History / Comment(s): hernia Inguinal left and right , marcelo shoulder X 3,. cataracts removed, macular repair, 2 coronary stents. back Past Anesthesia/Blood Transfusion Reactions: No Reported Reaction Additional Past Anesthesia/Blood Transfusion Reaction / Comm: has had trouble urinating after longer surgeries Date of Last Stent Placement:: 06-13-20 Past Psychological History: No Psychological Hx Reported Smoking Status: Former smoker Past Alcohol Use History: Occasional Additional Past Alcohol Use History / Comment(s): quit smoking 02-27-92, smoked for 28 yrs., 1ppd or less Past Drug Use History: None Reported - Past Family History Father Additional Family Medical History / Comment(s): CHF, valvular heart disease Medications and Allergies Home Medications Medication Instructions Recorded Confirmed Type Nitroglycerin Sl Tabs [Nitrostat] 0.4 mg SUBLINGUAL Q5M PRN #7 tab 06/18/20 11/15/20 Rx Acetaminophen [Acetaminophen ER] 1,300 mg PO HS 09/21/20 11/15/20 History Aspirin 81 mg PO DAILY@0809/21/20 11/15/20 History Atorvastatin [Lipitor] 40 mg PO HS@209909/21/20 11/15/20 History Famotidine 20 mg PO HS@2100 09/21/20 11/15/20 History Furosemide [Lasix] 20 mg PO DAILY@1400 09/21/20 11/15/20 History Furosemide [Lasix] 40 mg PO DAILY@0700 09/21/20 11/15/20 History Losartan [Cozaar] 50 mg PO HS 09/21/20 11/15/20 History Metoprolol Tartrate [Lopressor] 25 mg PO DAILY@1800 09/21/20 11/15/20 History Metoprolol Tartrate [Lopressor] 50 mg PO DAILY@0800 09/21/20 11/15/20 History Psyllium Husk (with Sugar) 7 gm PO BID@0800,2100 09/21/20 11/15/20 History [Metamucil Powder] Spironolactone [Aldactone] 12.5 mg PO DAILY@1200 09/21/20 11/15/20 History Tamsulosin HCl [Flomax] 0.4 mg PO HS@209909/21/20 11/15/20 History Ticagrelor [Brilinta] 90 mg PO BID@0800,209909/21/20 11/15/20 History Vit C/E/Zn/Coppr/Lutein/Zeaxan 1 cap PO BID@0800,209909/21/20 11/15/20 History [Preservision Areds 2 Softgel] traMADol HCl [Ultram] 50 mg PO Q8H PRN 09/21/20 11/15/20 History Allergies Allergy/AdvReac Type Severity Reaction Status Date / Time No Known Allergies Allergy Verified 11/10/20 18:04 Physical Exam Vitals: Vital Signs Temp Pulse Resp BP Pulse Ox 11/15/20 11:25 98.1 F 92 18 99/61 96 General: Well-developed, well-nourished, no acute distress HEENT: Normocephalic, and atraumatic Neck: Supple, no neck swelling Psychiatric: Appropriate mood, and affect [employer]: No noticeable focal neurological deficits Musculoskeletal: Upper extremity: Normal strength, and range of motion. Sensation grossly intact Lower extremity: Normal strength, and decreased range of motion secondary to pain Lumbar spine: Paravertebral tenderness: positive . healed lower lumbar scar. lumbar scoliosis. Lumbar facet load test : positive Strait leg raising test: not done Sacroiliac joint tenderness: Positive positive on left side Thigh thrust test: Positive positive on left side SI joint compression test: Positive positive on left side Fabere test: Positive positive on left side Results Results: MRI of the lumbar spine done on 02/26/2019 showed Laminectomy changes at L3-L4, and L4-L5 levels. Lack of contrast limits differentiation between disc material, and epidural fibrosis. L5-S1 disc osteophyte complex asymmetric to the left with foraminal extension, facet degeneration with ligamentum flavum hypertrophy left greater than right. There is a mild central canal stenosis, lateral recess stenosis with contact of S1 nerve root, severe foraminal stenosis with contact of L5 roots. Assessment and Plan Assessment: Lumbar postlaminectomy syndrome lumbar spondylosis without myelopathy lumbar radiculopathy left-sided sacroiliac joint dysfunction- left-sided patient had a history of coronary artery disease status post cardiac stents 2 on June 2020 on brillinta. Plan: #1 psychological risk tools were reviewed. Diagnoses, prognosis, and multiple treatment options including but not limited to physical therapy, interventional therapy, adjunct medication therapy, complementary alternative medicine options, narcotic medication, and surgical options were discussed with the patient. And all questions were answered to the patient's satisfaction. #2 treatment plan agreement : Patient was thoroughly discussed regarding the treatment options, alternatives, and importance of exercises as tolerated. Patient clearly understood. #3 Patient was counseled on importance of regular exercise. Including saeid chi, aerobic exercises as tolerated. Which helps for chronic pain, and overall well- being. Patient also counseled regarding importance of weight control role in chronic pain, and overall other health issues. By altering diet habits, minimizing sugar intake, & processed foods helps in minimizing Inflammation. #4 investigations: MAPS- reviewed , urine drug test- not done #5 diagnostic tests: none #6 consultation : physical therapy # 7 interventional procedures: left side L4-L5, and L5-S1 transforaminal epidural steroid injection. Procedure, complications, alternatives discussed with the patient. once the patient safely stop his anticoagulant after discussed with his endoscopy technician, will plan to proceed for the intervention procedure in future #8 medications #1 tramadol 50 mg by mouth every 12 hours as needed from his primary care physician #2 Neurontin 100 mg by mouth daily at bedtime for 3 days if not causing drowsy recommended to take every 12 hours dispense 60 with no refill #3 Tylenol 500 mg by mouth every 8 hours as needed, total dose not more than 2 g per day Medication side effects, complications, long-term consequences discussed with the patient. Patient recommended to contact the pain clinic if noticed any issues with given medications. #9 morphine milligrams equivalents dose ( MME) per day:10 #10 disposition: scheduled to follow up with pain clinic in 4weeks duration. Time with Patient: Greater than 30 PQRS Measure Charge Sheet Measure #130: Documentation of Current Meds in Medical Chart: Patient's medications documented in chart Measure #226: Tobacco Use: Screen & Cessation Intervention: Pt not a tobacco user Measure #111: Pneumonia Vaccination: Pneumococcal vaccine administered or previously received Measure #47: Advance Care Plan: Advance care planning discussed & documented, plan or surrogate given Measure #412: Opioid Treatment Agreement: No documentation of signed opioid treatment agreement Measure #408: Opioid Therapy Follow-up Evaluation: Patient had f/u eval minimum every 3 months during opioid therapy Measure #317: Preventitive Care & Scrn High Bld Press & F/U: Pre-hypertensive or hypertensive BP documented, pt will f/u with PCP Measure #128: Body Mass Index (BMI) Screening & Follow-up: BMI documented ABOVE normal parameters - f/u documented Measure #131: Pain Assessment & Follow-up: Pain positive & plan documented Measure #431: Unhealthy Alcohol Use Preventative Care & Scrn: Patient not identified as an unhealthy alcohol user Mode of Arrival: Cane - Pain Location Left Upper Back Non-Pharmacological Interventions: Heat, Home Exercise, Ice, Inactivity, Massage, Physical Therapy, Stretching Pharmacological Interventions: PRN Medication PQRS Narrative: Blood Pressure 99/61 Pain Intensity [Left Upper 3 Back] Scale Used Numeric (1 - 10) Hx Alcohol Use (MH) No Home Medications: Ambulatory Orders Nitroglycerin Sl Tabs [Nitrostat] 0.4 mg SUBLINGUAL Q5M PRN #7 tab 06/18/20 Acetaminophen [Acetaminophen ER] 1,300 mg PO HS 09/21/20 Aspirin 81 mg PO DAILY@0809/21/20 Atorvastatin [Lipitor] 40 mg PO HS@209909/21/20 Famotidine 20 mg PO HS@209909/21/20 Furosemide [Lasix] 20 mg PO DAILY@1400 09/21/20 Furosemide [Lasix] 40 mg PO DAILY@0709/21/20 Losartan [Cozaar] 50 mg PO HS 09/21/20 Metoprolol Tartrate [Lopressor] 25 mg PO DAILY@1800 09/21/20 Metoprolol Tartrate [Lopressor] 50 mg PO DAILY@0809/21/20 Psyllium Husk (with Sugar) [Metamucil Powder] 7 gm PO BID@0800,209909/21/20 Spironolactone [Aldactone] 12.5 mg PO DAILY@1200 09/21/20 Tamsulosin HCl [Flomax] 0.4 mg PO HS@209909/21/20 Ticagrelor [Brilinta] 90 mg PO BID@0800,209909/21/20 Vit C/E/Zn/Coppr/Lutein/Zeaxan [Preservision Areds 2 Softgel] 1 cap PO BID@0800,2100 09/21/20 traMADol HCl [Ultram] 50 mg PO Q8H PRN 09/21/20
== END ==
LOC: PNWHC3 11:14
DX: M96.1 Postlaminectomy syndrome, not elsewhere classified (principal); M47.26 Other spondylosis with radiculopathy, lumbar region; M53.3 Sacrococcygeal disorders, not elsewhere classified; I25.10 Atherosclerotic heart disease of native coronary artery without angina pectoris; Z95.5 Presence of coronary angioplasty implant and graft; K21.9 Gastro-esophageal reflux disease without esophagitis; E78.5 Hyperlipidemia, unspecified; I10 Essential (primary) hypertension; I25.2 Old myocardial infarction; M19.90 Unspecified osteoarthritis, unspecified site; Z87.891 Personal history of nicotine dependence; Z79.1 Long term (current) use of non-steroidal anti-inflammatories (NSAID); Z79.82 Long term (current) use of aspirin; Z79.899 Other long term (current) drug therapy
CPT/HCPCS: 99211

== ENCOUNTER → 2020-12-13 | Outpatient (CLI) | payer MEDICARE ==
[2020-12-13 11:13] VITALS: PULSE 59; RESP 18; TEMP 97.1
[2020-12-13 11:23] VITALS: BP 100/62
--- NOTE | 2020-12-13 11:42 | P.PN ---
Subjective Progress Note Date: 12/13/20 Marco Antonio is a 75-year-old male presenting to clinic for follow-up appointment after his initial visit last month. At his last visit he was complaining of low back pain with pain radiating down his legs. He was scheduled for a left-sided transforaminal epidural steroid injection at L4 5 and L5-S1. However he needed cardiology clearance from his recent [place]. His yet to get that Scotty at this point. He reports today however that his pain has significantly improved since his last visit. On his last visit he was given Lyrica 100 mg every 12 hours. He reports now that his pain is a 4 out of 10 at a 0-10 scale which has decreased significantly since his last visit. He feels like his pain is made worse with excessive standing and excessive walking. It is better with his new medications, sitting and resting. At this time he feels that the medication is controlled to his back pain enough that is not wish for any interventions at this time. Denies any adverse effects or complications from his medications. He denies any bowel or bladder dysfunction, saddle anesthesia, or any other red flag symptoms. Objective - Exam Physical Examinations : -Constitutiona : Cooperative , not in acute distress . -HEENT : nech : supple , no Lymphadenopathy , normal thyroid size . : eyes : no ptosis , no icterus, no photophobia . - neurologic : Cranial nerve II to XII intact , no focal neurological deffecit . -psychatric : alert , oriented X 3 , appropriate affect , intact judgment and insight . -Lymphatic : no Lymphadenopathy . - musculoskeltal : Lumber spine moter stegnth lower extremities ,thigh and legs 5/5 Right side , 5/5 Left side deep tendon reflexes : normal Knee Jerk , normal ankle Jerk lumber facet Loading Test =positive Right , positive Left Range of motion of the lumbar spine Flexion 30 degrees, extension 10 degrees strait leg raising test = positive at 30 degree Tender to palpation over the para vertebral lumbar muscles bilaterally Assessment and Plan Assessment: Assessment and plan Assessment: Lumbar postlaminectomy syndrome lumbar spondylosis without myelopathy lumbar radiculopathy left-sided sacroiliac joint dysfunction- left-sided patient had a history of coronary artery disease status post cardiac stents 2 on June 2020 on brillinta. Plan: Continue Lyrica 100 mg every 12 hours #60 pills no refills Scheduled patient for follow-up appointment in 4 weeks to evaluate medication effectiveness for pain control. Patient signed opioid contract - PQRS measures = - Patient's medications are documented in the chart. -Tobacco use is negative -Patient's has received pneumococcal vaccine. -Advanced care planning discussed, patient not eligible. -Opiate contract signed. -Pain positive and follow-up visit/procedure is scheduled. -Patient's blood pressure measured [100/62 ] , and documented in the record ,and patient will follow up with the primary care -Patient was not identified as an unhealthy alcohol user Time with Patient: Less than 30
== END ==
LOC: PNWHC3 10:46
PROVIDERS: ATTEND Student in an Organized Health Care Education/Training Program
DX: M47.26 Other spondylosis with radiculopathy, lumbar region (principal); M96.1 Postlaminectomy syndrome, not elsewhere classified; M46.1 Sacroiliitis, not elsewhere classified; I25.10 Atherosclerotic heart disease of native coronary artery without angina pectoris; Z95.5 Presence of coronary angioplasty implant and graft
CPT/HCPCS: 99211

== ENCOUNTER → 2021-01-10 | Outpatient (CLI) | payer MEDICARE ==
--- NOTE | 2021-01-10 10:55 | P.PN ---
Subjective Progress Note Date: 01/10/21 Marco Antonio is a 75-year-old male presenting to clinic for follow-up appointment after his initial visit last month. At his last visit he was complaining of low back pain with pain radiating down his legs. He was scheduled for a left-sided transforaminal epidural steroid injection at L4 5 and L5-S1. However he needed cardiology clearance from his [facility]. His yet to get that Scotty at this point. He reports today however that his pain has significantly improved since his last visit. On his last visit he was given Neurontin 100 mg every 12 hours. (He is taking it only at night ) He reports now that his pain is a 4 out of 10 at a 0-10 scale which has decreased significantly since his last visit. He feels like his pain is made worse with excessive standing and excessive walking. It is better with his new medications, sitting and resting. At this time he feels that the medication is controlled to his back pain enough that is not wish for any interventions at this time. Denies any adverse effects or complications from his medications. He denies any bowel or bladder dysfunction, saddle anesthesia, or any other red flag symptomes Physical Examinations : -Constitutiona : Cooperative , not in acute distress . -HEENT : nech : supple , no Lymphadenopathy , normal thyroid size . : eyes : no ptosis , no icterus, no photophobia . - neurologic : Cranial nerve II to XII intact , no focal neurological deffecit . -psychatric : alert , oriented X 3 , appropriate affect , intact judgment and insight . -Lymphatic : no Lymphadenopathy . - musculoskeltal : Lumber spine moter stegnth lower extremities ,thigh and legs 5/5 Right side , 5/5 Left side deep tendon reflexes : normal Knee Jerk , normal ankle Jerk lumber facet Loading Test =positive Right , positive Left Range of motion of the lumbar spine Flexion 30 degrees, extension 10 degrees strait leg raising test = positive at 30 degree Tender to palpation over the para vertebral lumbar muscles bilaterally Assessment and Plan Lumbar postlaminectomy syndrome lumbar spondylosis without myelopathy lumbar radiculopathy left-sided sacroiliac joint dysfunction- left-sided patient had a history of coronary artery disease status post cardiac stents 2 on June 2020 on brillinta. She is reported that his pain improved consistently after we started him on Neurontin Plan: Continue Neurontin 100 mg every nights dispence 30 with 2 refills, and will follow up in the pain clinic within - PQRS measures = - Patient's medications are documented in the chart. -Tobacco use is negative -Patient's has received pneumococcal vaccine. -Advanced care planning discussed, patient not eligible. -Opiate contract signed. -Pain positive and follow-up visit/procedure is scheduled. -Patient's blood pressure measured [97/66 ] , and documented in the record ,and patient will follow up with the primary care -Patient was not identified as an unhealthy alcohol user Objective - Vital Signs Vital signs: Intake & Output 01/09/21 01/10/21 01/10/21 18:59 06:59 18:59 Weight 95.254 kg
[2021-01-10 11:00] VITALS: BP 97/66; PULSE 59; RESP 18; TEMP 97.5
== END ==
LOC: PNWHC3 09:52
PROVIDERS: ATTEND Specialist
DX: M96.1 Postlaminectomy syndrome, not elsewhere classified (principal); M47.26 Other spondylosis with radiculopathy, lumbar region; M53.3 Sacrococcygeal disorders, not elsewhere classified; I25.10 Atherosclerotic heart disease of native coronary artery without angina pectoris; Z95.5 Presence of coronary angioplasty implant and graft
CPT/HCPCS: 99211

== ENCOUNTER 2021-03-31 11:39 | Emergency (ER) | payer MEDICARE ==
[2021-03-31 11:49] VITALS: TEMP 97.9
[2021-03-31 12:27] LABS: Basophils % (A) 0 %; Eosinophils # (A) 0.1 k/uL (0-0.7); Eosinophils % (A) 2 %; HCT 39.5 % (39.0-53.0); HGB 13.4 gm/dL (13.0-17.5); Lymphocytes # (A) 0.5 k/uL (1.0-4.8); Lymphocytes % (A) 9 %; MCH 33.9 pg (25.0-35.0); MCHC 33.8 g/dL (31.0-37.0); MCV 100.3 fL (80.0-100.0); Mean Platelet Volume 7.8; Monocytes # (A) 0.4 k/uL (0-1.0); Monocytes % (A) 6 %; Neutrophils # (A) 4.9 k/uL (1.3-7.7); Neutrophils % (A) 82 %; Platelet Count 190 k/uL (150-450); RBC 3.94 m/uL (4.30-5.90); RDW 13.5 % (11.5-15.5)
[2021-03-31 12:53] LABS: Troponin I <0.012 ng/mL (0.000-0.034)
[2021-03-31 13:12] LABS: Partial Thromboplastin Time 25.7 sec (22.0-30.0)
[2021-03-31 13:27] LABS: Creatine Kinase 141 U/L (55-170)
--- NOTE | 2021-03-31 13:49 | CT ---
EXAMINATION TYPE: CT brain cspine wo con DATE OF EXAM: 03/31/2021 COMPARISON: CT dated 09/21/2020 HISTORY: Fall today, on blood thinners. Frontal lobe and left sided headache CT DLP: 2078.8 mGycm Automated exposure control for dose reduction was used. TECHNIQUE: CT scan of the head and cervical spine are performed without contrast. FINDINGS: Brain: Small frontal subarachnoid hemorrhage. 4 mm acute blood is seen at the medial aspect of the left late ral ventricular trigone with minimal dependent blood within the occipital horn of the left lateral ve ntricle. Questionable minimal blood in the occipital horn of the right lateral ventricle. Parenchymal contusion versus intramural hematoma measuring 4 mm in the right frontal lobe. No midline shift or herniation. Unremarkable basal cisterns and CP angles. Unremarkable orbits. No definite acu te calvarial bone fracture identified. Cervical spine: Dextroscoliosis of the cervical spine. Anterolisthesis of C4 over C5, likely degenerative. No definit e vertebral body collapse or acute displaced fracture. Unremarkable atlantoaxial and atlantooccipital articulations. Advanced degenerative changes of the cervical spine with multilevel opposing endplate osteophytosis, degenerated discs, uncovertebral osteoarthropathy and facet osteoarthropathy. Multilevel neuroforaminal stenosis is also noted most evident at C3-4 and right C5-6 levels. No signi ficant bony spinal canal stenosis. No paraspinal lesion. IMPRESSION: 1. Mild multicompartment intracranial hemorrhage as described above, for follow-up. 2. No acute traumatic bony injury of the cervical spine. Incidental findings as described above.
--- NOTE | 2021-03-31 14:21 | ED ---
General Adult HPI - General Chief complaint: Fall Stated complaint: fall/standing/head injury/blood thinners Time Seen by Provider: 03/31/21 11:50 Source: patient, RN notes reviewed, old records reviewed Mode of arrival: ambulatory Limitations: no limitations - History of Present Illness Initial comments: This is a 75-year-old male who presents emergency Department with the complaint that he slipped and fell on the ice he hit the right frontal temporal region of his forehead he does not remember the event so it is assumed that he lost consciousness. Patient does complain of some left-sided neck pain. No central neck pain. Patient does any numbness or weakness. According to the when she first found him he was a little confused but now he is at his baseline currently. Patient does complain of a headache. Patient is on parole intact. Patient denies any extremity pain patient denies any chest pain or back pain. Patient denies abdominal pain. Patient denies any hip pain or lower extremity pain. - Related Data Home Medications Medication Instructions Recorded Confirmed Acetaminophen [Acetaminophen ER] 1,300 mg PO BID@0800,2099 PRN 09/21/20 03/31/21 Aspirin 81 mg PO DAILY@0800 09/21/20 03/31/21 Atorvastatin [Lipitor] 40 mg PO HS@209909/21/20 03/31/21 Famotidine 20 mg PO HS@209909/21/20 03/31/21 Furosemide [Lasix] 20 mg PO DAILY@1400 09/21/20 03/31/21 Furosemide [Lasix] 40 mg PO DAILY@0800 09/21/20 03/31/21 Losartan [Cozaar] 50 mg PO HS@209909/21/20 03/31/21 Metoprolol Tartrate [Lopressor] 25 mg PO DAILY@1800 09/21/20 03/31/21 Metoprolol Tartrate [Lopressor] 50 mg PO DAILY@0800 09/21/20 03/31/21 Psyllium Husk (with Sugar) 7 gm PO BID@0800,209909/21/20 03/31/21 [Metamucil Powder] Spironolactone [Aldactone] 25 mg PO DAILY@1200 09/21/20 03/31/21 Tamsulosin HCl [Flomax] 0.4 mg PO HS@209909/21/20 03/31/21 Ticagrelor [Brilinta] 90 mg PO BID@0800,209909/21/20 03/31/21 Vit C/E/Zn/Coppr/Lutein/Zeaxan 1 cap PO BID@0800,209909/21/20 03/31/21 [Preservision Areds 2 Softgel] traMADol HCl [Ultram] 50 mg PO Q8H PRN 09/21/20 03/31/21 Gabapentin [Neurontin] 100 mg PO HS@209901/10/21 03/31/21 Cholecalciferol [Vitamin D3 (25 50 mcg PO DAILY@0800 03/31/21 03/31/21 Mcg = 1000 Iu)] Previous Rx's Medication Instructions Recorded Nitroglycerin Sl Tabs [Nitrostat] 0.4 mg SUBLINGUAL Q5M PRN #7 tab 06/18/20 Allergies Allergy/AdvReac Type Severity Reaction Status Date / Time No Known Allergies Allergy Verified 03/31/21 13:53 Review of Systems ROS Statement: Those systems with pertinent positive or pertinent negative responses have been documented in the HPI. ROS Other: All systems not noted in ROS Statement are negative. Past Medical History Past Medical History: Coronary Artery Disease (CAD), Cancer, GERD/Reflux, Hyperlipidemia, Hypertension, Myocardial Infarction (MA), Musculoskeletal Disorder, Osteoarthritis (OA), Prostate Disorder Additional Past Medical History / Comment(s): SOB w/exertion, hx. skin cancer, tended to run low BP in the past-had passed out in the past w/low BP, scoliosis, spondylolithesis Last Myocardial Infarction Date:: 06-13-20 History of Any Multi-Drug Resistant Organisms: None Reported Past Surgical History: Back Surgery, Heart Catheterization With Stent, Hernia Repair, Orthopedic Surgery Additional Past Surgical History / Comment(s): hernia Inguinal left and right , marcelo shoulder X 3,. cataracts removed, macular repair, 2 coronary stents. back Past Anesthesia/Blood Transfusion Reactions: No Reported Reaction Additional Past Anesthesia/Blood Transfusion Reaction / Comment(s): has had trouble urinating after longer surgeries Date of Last Stent Placement:: 06-13-20 Past Psychological History: No Psychological Hx Reported Smoking Status: Former smoker Past Alcohol Use History: Occasional Past Drug Use History: None Reported - Past Family History Father Additional Family Medical History / Comment(s): CHF, valvular heart disease General Exam - General Exam Comments Initial Comments: GENERAL: Patient is well-developed and well-nourished. Patient is nontoxic and well- hydrated and is in mild distress. ENT: Neck is soft and supple. No significant lymphadenopathy is noted. Oropharynx is clear. Moist mucous membranes. Neck has full range of motion without eliciting any pain. EYES: The sclera were anicteric and conjunctiva were pink and moist. Extraocular movements were intact and pupils were equal round and reactive to light. Eyelids were unremarkable. PULMONARY: Unlabored respirations. Good breath sounds bilaterally. No audible rales rhonchi or wheezing was noted. CARDIOVASCULAR: There is a regular rate and rhythm without any murmurs gallops or rubs. ABDOMEN: Soft and nontender with normal bowel sounds. SKIN: Patient has a hematoma in the left parietal occipital region NEUROLOGIC: Patient is alert and oriented x3. Cranial nerves II through XII are grossly intact. Motor and sensory are also intact. Normal speech, volume and content. Symmetrical smile. MUSCULOSKELETAL: Normal extremities with adequate strength and full range of motion. LYMPHATICS: No significant lymphadenopathy is noted PSYCHIATRIC: Normal psychiatric evaluation. Limitations: no limitations Course Vital Signs 03/31/21 03/31/21 11:43 12:13 Temperature 97.9 F Pulse Rate 56 L 52 L Respiratory 18 20 Rate Blood Pressure 110/62 110/73 O2 Sat by Pulse 99 98 Oximetry Medical Decision Making - Medical Decision Making CT of the head shows a small subarachnoid hemorrhage and intraventricular hemorrhage no midline shift and possible parenchymal contusion. I spoke with [facility] they accept the transfer the patient alayna pate will be transferred. EKG shows sinus bradycardia 52 bpm MD interval 214 QRS is 92 QT interval 433 QTC is 413. Patient's EKG shows no ST segment elevation or depression. - Lab Data Result diagrams: 03/31/21 12:11 Lab Results 03/31/21 03/31/21 03/31/21 Range/Units 12:11 12:11 12:11 WBC 6.0 (3.8-10.6) k/uL RBC 3.94 L (4.30-5.90) m/uL Hgb 13.4 (13.0-17.5) gm/dL Hct 39.5 (39.0-53.0) % MCV 100.3 H (80.0-100.0) fL MCH 33.9 (25.0-35.0) pg MCHC 33.8 (31.0-37.0) g/dL RDW 13.5 (11.5-15.5) % Plt Count 190 (150-450) k/uL MPV 7.8 Neutrophils % 82 % Lymphocytes % 9 % Monocytes % 6 % Eosinophils % 2 % Basophils % 0 % Neutrophils # 4.9 (1.3-7.7) k/uL Lymphocytes # 0.5 L (1.0-4.8) k/uL Monocytes # 0.4 (0-1.0) k/uL Eosinophils # 0.1 (0-0.7) k/uL Basophils # 0.0 (0-0.2) k/uL PT 11.0 (9.0-12.0) sec INR 1.0 (<1.2) APTT 25.7 (22.0-30.0) sec Total Creatine Kinase 141 (55-170) U/L CK-MB (CK-2) 4.0 H (0.0-2.4) ng/mL CK-MB (CK-2) Rel Index 2.8 Troponin I <0.012 (0.000-0.034) ng/mL Critical Care Time Critical Care Time: Yes Total Critical Care Time: 35 Disposition Clinical Impression: Intraparenchymal hemorrhage of brain, Subarachnoid hemorrhage Disposition: OTHER INSTITUTION NOT DEFINED Referrals: Krysta Martinez MD [Primary Care Provider] - 1-2 days Time of Disposition: 14:21 - Out of Hospital Transfer - Req. Specs Out of Hospital Transfer - Requested Specifics: Other Emergency Center ([facility])
[2021-03-31 15:14] VITALS: BP 112/78; PULSE 73; RESP 16
== END 2021-03-31 15:15 | disposition other institution (70) ==
LOC: EC 11:39
DX: I61.8 Other nontraumatic intracerebral hemorrhage (principal); I25.10 Atherosclerotic heart disease of native coronary artery without angina pectoris; K21.9 Gastro-esophageal reflux disease without esophagitis; E78.5 Hyperlipidemia, unspecified; I10 Essential (primary) hypertension; I25.2 Old myocardial infarction; M19.90 Unspecified osteoarthritis, unspecified site; Z79.82 Long term (current) use of aspirin; Z85.828 Personal history of other malignant neoplasm of skin; Z87.891 Personal history of nicotine dependence
CPT/HCPCS: 36415; 70450; 72125; 82550; 82553; 84484; 85025; 85610; 85730; 93005; 99291

== ENCOUNTER → 2021-04-13 | Outpatient (CLI) | payer MEDICARE ==
--- NOTE | 2021-04-13 21:43 | CT ---
EXAMINATION TYPE: CT brain wo con DATE OF EXAM: 04/13/2021 COMPARISON: Follow-up hemorrhage HISTORY: f/u hemorrhage from fall CT DLP: 1098.8 mGycm Automated exposure control for dose reduction was used. TECHNIQUE: CT scan of the brain is performed without IV contrast administration. FINDINGS: Interval complete resolution of the previously seen multicompartment intracranial hemorrhage. No resi dual or new intracranial bleeding identified. Cerebellar volume loss changes with prominent intracran ial ventricles and slightly crowded cortical sulci near the vertex, a form of communicating hydroceph alus cannot be excluded, yet stable compared to the previous CT scans. No midline shift or herniation. Unremarkable basal cisterns, sella and CP angles. No gross space-occu pying lesion, vasogenic edema or mass effect. No gross orbital abnormality. Clear visualized paranasa l sinuses and mastoid air cells. No definite acute calvarial bone fracture identified. IMPRESSION: Interval complete resolution of the previously seen multicompartment intracranial hemorrhage with no residual or new intracranial bleeding identified. Chronic findings as described above.
== END ==
LOC: RADCTMAIN 18:55
PROVIDERS: ATTEND Internal Medicine
DX: Z09 Encounter for follow-up examination after completed treatment for conditions other than malignant neoplasm (principal); Z87.820 Personal history of traumatic brain injury; W19.XXXD Unspecified fall, subsequent encounter
CPT/HCPCS: 70450

== ENCOUNTER → 2021-04-20 | Outpatient (CLI) | payer MEDICARE ==
--- NOTE | 2021-04-20 13:48 | P.PN ---
Subjective Progress Note Date: 04/20/21 Principal diagnosis: A 75 yr old male with at side with a history of severe and chronic low back pain secondary to lumbar degenerative disc diseases and lumbar spondylosis with facet arthropathy presents today for medication refills. Pain level is out of 10 in intensity, achy, constant, dull in the mid to lower aspects of his lumbar spine with radiation of sharp, burning pain down the lateral aspect of his left lower extremity. Pain is provoked by standing for periods of 30 minutes or more, weightbearing or walking. Pain is alleviated with medications, topicals, injections that provided intermittent pain relief, application of heat, physical therapy in 09/01, chiropractic treatments have been ineffective, home daily stretching regimen that has been performed at a minimum due to recent fall, use of a cane for ambulation, massage and rest. Patient is currently on Neurontin 100 mg every PM #30 from this clinic Patient denies any side effects of the medication(s), denies excessive drowsiness or sleepiness, denies suicidal ideation and reports that the current pain medication is helping to control the pain and improve activities of daily living. Patient denies any motor or sensory deficits. Patient denies any fever or night sweats, denies any change in the bowel movements or urination. Physical Examination: -Constitutional: Cooperative. Not in acute distress . -HEENT: Neck is supple. No lymphadenopathy. No thyromegaly. Normal thyroid size. Eyes: No ptosis , no icterus, no photophobia. ENT: No auditory deficits. Normal oropharynx. No Thrush. - Respiratory: Chest clear to auscultations bilaterally. No wheezing. No rhonchi. - Cardiovascular: Regular rate and rhythm. S1 / S2 , no S3 , no S4. - Gastrointestinal: Abdomen soft no tenderness. Bowel sounds positive in all four quadrants. No organomegaly. - Genitourinary: Deferred. - Neurologic: Cranial nerve II to XII intact. No focal neurological deficits. - Psychatric: Alert & oriented x 3. Matching mood & appropriate affect. Judgment and insight intact. - Lymphatic: No Lymphadenopathy. - Musculoskeletal: Cervical spine: Muscle bulk/ tone/ strength in the bilateral upper extremities normal. Facet loading test cervical area positive. Lumbar spine: Motor bulk/ tone 5/5. Muscle strength lower extremities , thigh and legs : 4/5 in LLE Deep tendon reflexes : Normal Knee Jerk. Normal Ankle Jerk . Vertebral body tenderness to palpation over L4, L5 Lumbar Facet Loading Test positive Straight Leg Raise: positive at 30 degrees right side/ left side Gaenslen's Test positive Sacral spine : Severe tenderness over the Sacroiliac joint: right side / left side Range of motion: Flexion of the lumbar spine <60 degrees Range of motion: Extension of the lumbar spine <20 degrees Gaenslen's Test positive Sirisha test: positive right side / left side Assessment and plan: Chronic low back pain secondary to lumbar degenerative disc disease , lumbar spondylosis with facet arthropathy without myelopathy Chronic and current use of high-risk medication (Opioids). The patient was counseled about risk of opioid use, psychological risk associated with opioids and was orally counseled to not overuse , divert or sell medications. Pt is to store medication in a safe location. The patient is counseled against driving while using narcotic medications and also not to use alcohol or any illicit recreational drugs. Patient verbalized understanding that the lack of compliance will result in failure to renew narcotic prescription(s) as well as possible discharge from the clinic Diagnoses, prognosis and treatment options including but not limited to physical therapy, surgical interventions, interventional therapies and medication management including narcotics and adjuvant medication were discussed . All patient questions answered MAPS reviewed and it was appropriate. urine collected for UDS today. Prescription refill for Neurontin 100 mg #30 with 1 refill. Diclofenac gel, apply to AA 4 times a day when necessary dispense 1 with 1 refill I have spent 31 minutes on patient care today. Dr Dodd was available by phone for the evaluation of this patient. The time was used to review the medical records including relevant urine studies and Prescription history (MAPs), review of the available imaging, evaluation and examination of the patient, coordination of care with the medical staff and if applicable referring physicians, as well as creation of the medical record PQRS Measure Charge Sheet PQRS Narrative: Narcotic Agreement Date Signed 12/13/20 Pain Intensity [Back] 4 Scale Used Numeric (1 - 10) Hx Alcohol Use (MH) No Home Medications: Ambulatory Orders Nitroglycerin Sl Tabs [Nitrostat] 0.4 mg SUBLINGUAL Q5M PRN #7 tab 06/18/20 Acetaminophen [Acetaminophen ER] 1,300 mg PO BID@0800,2100 PRN 09/21/20 Aspirin 81 mg PO DAILY@0800 21 Atorvastatin [Lipitor] 40 mg PO HS@209909/21/20 Famotidine 20 mg PO HS@209909/21/20 Furosemide [Lasix] 20 mg PO DAILY@1400 09/21/20 Furosemide [Lasix] 40 mg PO DAILY@79909/21/20 Losartan [Cozaar] 50 mg PO HS@209909/21/20 Metoprolol Tartrate [Lopressor] 25 mg PO DAILY@1800 09/21/20 Metoprolol Tartrate [Lopressor] 50 mg PO DAILY@79909/21/20 Psyllium Husk (with Sugar) [Metamucil Powder] 7 gm PO BID@0800,209909/21/20 Spironolactone [Aldactone] 25 mg PO DAILY@119909/21/20 Tamsulosin HCl [Flomax] 0.4 mg PO HS@209909/21/20 Ticagrelor [Brilinta] 90 mg PO BID@0800,209909/21/20 Vit C/E/Zn/Coppr/Lutein/Zeaxan [Preservision Areds 2 Softgel] 1 cap PO BID@08,209909/21/20 Cholecalciferol [Vitamin D3 (25 Mcg = 1000 Iu)] 50 mcg PO DAILY@0800 03/31/21 Diclofenac Sodium Gel [Voltaren Gel] 100 gm TOPICAL QID 30 Days #1 gm 04/20/21 Gabapentin [Neurontin] 100 mg PO HS@2099 30 Days #30 cap 04/20/21
[2021-04-20 14:06] VITALS: BP 114/77; PULSE 72; RESP 16; TEMP 97.7
== END ==
LOC: PNWHC3 13:07
PROVIDERS: ATTEND Physician Assistant Medical
DX: M51.36 Other intervertebral disc degeneration, lumbar region (principal); M47.816 Spondylosis without myelopathy or radiculopathy, lumbar region; G89.29 Other chronic pain; Z79.891 Long term (current) use of opiate analgesic
CPT/HCPCS: 80307; G0482; G0463; 99212

== ENCOUNTER → 2021-06-15 | Outpatient (CLI) | payer MEDICARE ==
[2021-06-15 13:42] VITALS: BP 107/68; PULSE 64; RESP 16; TEMP 97.5
--- NOTE | 2021-06-15 14:02 | P.PN ---
Subjective Progress Note Date: 06/15/21 Principal diagnosis: A 75 yr old male with at side with a history of severe and chronic low back pain secondary to lumbar degenerative disc diseases and lumbar spondylosis with facet arthropathy presents today for medication refills. Pain level is 3 out of 10 in intensity, localized to the lower aspect of his lumbar spine, achy, intermittent pain that extends exacerbated as high as 8 out of 10 in intensity when lifting or walking for periods of 5 minutes or more. Pain also shoots down the left lower extremity. Pain is alleviated with occasions, topicals, ice, heat, physical therapy for 4 weeks, daily home exercise regimen, massage therapy years ago, reclining and rest. Patient is currently on Neurontin 100 mg daily at bedtime. Diclofenac gel when necessary. Patient denies any side effects of the medication(s), denies excessive drowsiness or sleepiness, denies suicidal ideation and reports that the current pain medication is helping to control the pain and improve activities of daily living. Patient denies any motor or sensory deficits. Patient denies any fever or night sweats, denies any change in the bowel movements or urination. Physical Examination: -Constitutional: Cooperative. Not in acute distress . -HEENT: Neck is supple. No lymphadenopathy. No thyromegaly. Normal thyroid size. Eyes: No ptosis , no icterus, no photophobia. ENT: No auditory deficits. Normal oropharynx. No Thrush. - Respiratory: Chest clear to auscultations bilaterally. No wheezing. No rhonchi. - Cardiovascular: Regular rate and rhythm. S1 / S2 , no S3 , no S4. - Gastrointestinal: Abdomen soft no tenderness. Bowel sounds positive in all four quadrants. No organomegaly. - Genitourinary: Deferred. - Neurologic: Cranial nerve II to XII intact. No focal neurological deficits. - Psychatric: Alert & oriented x 3. Matching mood & appropriate affect. Judgment and insight intact. - Lymphatic: No Lymphadenopathy. - Musculoskeletal: Cervical spine: Muscle bulk/ tone/ strength in the bilateral upper extremities normal. Facet loading test cervical area positive. Lumbar spine: Motor bulk/ tone/ strength lower extremities , thigh and legs : 5/5 Deep tendon reflexes : Normal Knee Jerk. Normal Ankle Jerk . Vertebral body tenderness to palpation over Lumbar Facet Loading Test positive Left lumbar paraspinal muscle spasms Straight Leg Raise: positive at 30 degrees right side/ left side Gaenslen's Test positive Sacral spine : Severe tenderness over the Sacroiliac joint: right side / left side Range of motion: Flexion of the lumbar spine <60 degrees Range of motion: Extension of the lumbar spine <20 degrees Gaenslen's Test positive Sirisha test: positive right side / left side Assessment and plan: Chronic low back pain secondary to lumbar degenerative disc disease , lumbar spondylosis with facet arthropathy without myelopathy Chronic and current use of high-risk medication (Opioids). The patient was counseled about risk of opioid use, psychological risk associated with opioids and was orally counseled to not overuse , divert or sell medications. Pt is to store medication in a safe location. The patient is counseled against driving while using narcotic medications and also not to use alcohol or any illicit recreational drugs. Patient verbalized understanding that the lack of compliance will result in failure to renew narcotic prescription(s) as well as possible discharge from the clinic Diagnoses, prognosis and treatment options including but not limited to physical therapy, surgical interventions, interventional therapies and medication management including narcotics and adjuvant medication were discussed. All patient questions answered MAPS reviewed and it was appropriate. UDS from 04/20/21 reviewed and consistent Prescription refill for Neurontin 100 mg #30 with 1 refill. Diclofenac gel apply as needed. I have spent 31 minutes on patient care today. Dr Dodd was available by phone for the evaluation of this patient. The time was used to review the medical records including relevant urine studies and Prescription history (MAPs), review of the available imaging, evaluation and examination of the patient, coordination of care with the medical staff and if applicable referring physicians, as well as creation of the medical record Objective - Vital Signs Vital signs: Vital Signs Temp 97.5 F L 06/15/21 13:30 Pulse 64 06/15/21 13:30 Resp 16 06/15/21 13:30 BP 107/68 06/15/21 13:30 Pulse Ox 95 06/15/21 13:30 Intake & Output 06/14/21 06/15/21 06/15/21 18:59 06:59 18:59 Weight 97.522 kg PQRS Measure Charge Sheet Mode of Arrival: Ambulatory - Pain Location Lower Back Non-Pharmacological Interventions: Elevation, Heat, Home Exercise, Ice, Inactivity, Physical Therapy, Stretching Pharmacological Interventions: PRN Medication, Scheduled Medication, Topical Medication PQRS Narrative: Narcotic Agreement Date Signed 12/13/20 Blood Pressure 107/68 Pain Intensity [Lower Back] 5 Scale Used Numeric (1 - 10) Hx Alcohol Use (MH) No Home Medications: Ambulatory Orders Nitroglycerin Sl Tabs [Nitrostat] 0.4 mg SUBLINGUAL Q5M PRN #7 tab 06/18/20 Acetaminophen [Acetaminophen ER] 1,300 mg PO BID@0800,2099 PRN 09/21/20 Aspirin 81 mg PO DAILY@79909/21/20 Atorvastatin [Lipitor] 40 mg PO HS@209909/21/20 Famotidine 20 mg PO DAILY 09/21/20 Losartan [Cozaar] 12.5 mg PO HS 09/21/20 Metoprolol Tartrate [Lopressor] 12.5 mg PO BID 09/21/20 Psyllium Husk (with Sugar) [Metamucil Powder] 7 gm PO BID@0800,209909/21/20 Tamsulosin HCl [Flomax] 0.4 mg PO HS@209909/21/20 Vit C/E/Zn/Coppr/Lutein/Zeaxan [Preservision Areds 2 Softgel] 1 cap PO BID@0800,209909/21/20 Cholecalciferol [Vitamin D3 (25 Mcg = 1000 Iu)] 50 mcg PO DAILY@0800 03/31/21 traMADol HCL [Ultram] 50 mg PO Q8H PRN 06/14/21 Diclofenac Sodium Gel [Voltaren Gel] 2 gm TOPICAL BID 30 Days #100 gm 06/15/21 Gabapentin [Neurontin] 100 mg PO HS@2099 30 Days #30 cap 06/15/21
== END ==
LOC: PNWHC3 12:48
PROVIDERS: ATTEND Specialist
DX: M51.36 Other intervertebral disc degeneration, lumbar region (principal); M47.816 Spondylosis without myelopathy or radiculopathy, lumbar region; G89.29 Other chronic pain; Z79.891 Long term (current) use of opiate analgesic
CPT/HCPCS: 99211

== ENCOUNTER → 2021-09-12 | Outpatient (CLI) | payer MEDICARE ==
--- NOTE | 2021-09-12 15:13 | P.PAINPG ---
PQRS Measure Charge Sheet Comment: A 76 yr old malew at side with a history of severe and chronic low back pain x 3 yrs secondary to lumbar degenerative disc diseases and lumbar spondylosis with facet arthropathy presents today for medication refills. Pain level is 4/10 in intensity, constant, localized in the center of his spine, sore , sharp pain w shooting towards L hip and LLE. Pain is provoked by walking/ standing for periods of 15 min or more. Pain is alleviated with PT integrated w massage for 3 weeks in June 2021, home exercise regimen, heat, ice, medications (Ibuprofen, Voltaren gel), use of a cane for ambulation, repositioning and rest. He no longer takes Neurontin as he states it's ineffective. Patient is currently on Neurontin 100mg QHS, Ibuprofen 800mg #90, Voltaren Patient denies any side effects of the medication(s), denies excessive drowsiness or sleepiness, denies suicidal ideation and reports that the current pain medication is helping to control the pain and improve activities of daily living. Patient denies any motor or sensory deficits. Patient denies any fever or night sweats, denies any change in the bowel movements or urination. Physical Examination: -Constitutional: Cooperative. Not in acute distress . - Neurologic: Cranial nerve II to XII intact. No focal neurological deficits. - Psychatric: Alert & oriented x 3. Matching mood & appropriate affect. Judgment and insight intact. - Musculoskeletal: Cervical spine: Muscle bulk/ tone/ strength in the bilateral upper extremities normal Vertebral body tenderness to palpation over Spurling test positive Distraction test positive Facet loading test positive Thoracic spine Muscle bulk / tone/ strength in the bilateral paraspinal muscles normal Vertebral body tender to palpation over Facet loading test positive Lumbar spine: Motor bulk/ tone/ strength lower extremities , thigh and legs : 5/5 Deep tendon reflexes : Normal Knee Jerk. Normal Ankle Jerk . Vertebral body tenderness to palpation over L3, L4, L5 Lumbar Facet Loading Test positive Straight Leg Raise: positive at 30 degrees right side/ left side Gaenslen's Test positive Sacral spine : Severe tenderness over the Sacroiliac joint: right side / left side Range of motion: Flexion of the lumbar spine <60 degrees Range of motion: Extension of the lumbar spine <20 degrees Gaenslen's Test positive Benito's Test positive Sirisha test: positive right side / left side Thigh Thrust Test Sacral Thrust Test Assessment and plan: Chronic low back pain secondary to lumbar degenerative disc disease , lumbar spondylosis with facet arthropathy without myelopathy Chronic and current use of high-risk medication (Opioids). The patient was counseled about risk of opioid use, psychological risk associated with opioids and was orally counseled to not overuse , divert or sell medications. Pt is to store medication in a safe location. The patient is counseled against driving while using narcotic medications and also not to use alcohol or any illicit recreational drugs. Patient verbalized understanding that the lack of compliance will result in failure to renew narcotic prescription(s) as well as possible discharge from the clinic Diagnoses, prognosis and treatment options including but not limited to physical therapy, surgical interventions, interventional therapies and medication management including narcotics and adjuvant medication were discussed. All patient questions answered MAPS reviewed and it was appropriate. Narcotic agreement signed today 09/12/21 Prescription refill for Neurontin 200mg QHS #30, Ibuprofen 600mg TIDWM #90, Voltaren gel prn 1 tube w 1 refill I have spent less than 30 minutes on patient care today. Dr Dodd was available by phone for the evaluation of this patient. The time was used to review the medical records including relevant urine studies and Prescription history (MAPs), review of the available imaging, evaluation and examination of the patient, coordination of care with the medical staff and if applicable referring physicians, as well as creation of the medical record PQRS Narrative: Narcotic Agreement Date Signed 12/13/20 Hx Alcohol Use (MH) No Home Medications: Ambulatory Orders Nitroglycerin Sl Tabs [Nitrostat] 0.4 mg SUBLINGUAL Q5M PRN #7 tab 06/18/20 Acetaminophen [Acetaminophen ER] 1,300 mg PO BID@799,2099 PRN 09/21/20 Aspirin 81 mg PO DAILY@79909/21/20 Atorvastatin [Lipitor] 40 mg PO HS@209909/21/20 Famotidine 20 mg PO DAILY 09/21/20 Losartan [Cozaar] 12.5 mg PO HS 09/21/20 Metoprolol Tartrate [Lopressor] 12.5 mg PO BID 09/21/20 Psyllium Husk (with Sugar) [Metamucil Powder] 7 gm PO BID@799,209909/21/20 Tamsulosin HCl [Flomax] 0.4 mg PO HS@209909/21/20 Vit C/E/Zn/Coppr/Lutein/Zeaxan [Preservision Areds 2 Softgel] 1 cap PO BID@0800,209909/21/20 Cholecalciferol [Vitamin D3 (25 Mcg = 1000 Iu)] 50 mcg PO DAILY@0800 03/31/21 traMADol HCL [Ultram] 50 mg PO Q8H PRN 06/14/21 Diclofenac Sodium Gel [Voltaren Gel] 2 gm TOPICAL BID 30 Days #100 gm 06/15/21 Gabapentin [Neurontin] 100 mg PO HS@2099 30 Days #30 cap 06/15/21 Controlled Substance Measures - Controlled Substance Measures Is patient prescribed a controlled substance at discharge?: Yes When asked, does pt state using other controlled substances?: No If prescribed controlled substance>3 days was MAPS reviewed?: Yes If Rx opioid, was Start Talking consent form obtained?: Yes Was information provided regarding opioid addiction?: Yes
[2021-09-12 16:16] VITALS: BP 103/67; PULSE 62; RESP 18; TEMP 97.9
== END ==
LOC: PNWHC3 13:44
PROVIDERS: ATTEND Specialist
DX: M51.36 Other intervertebral disc degeneration, lumbar region (principal); M47.816 Spondylosis without myelopathy or radiculopathy, lumbar region; G89.29 Other chronic pain; Z79.891 Long term (current) use of opiate analgesic
CPT/HCPCS: 99211

== ENCOUNTER 2021-10-20 09:02 | Day surgery (SDC) | payer MEDICARE ==
[2021-10-13 15:04] VITALS: BMI 30.5
[~2021-10-20 09:02] MED LIST: LACTATED RINGERS 1,000 ML IV SCH; LIDOCAINE 1% (10MG/ML) FOR IV START INTRADERMA PRN
[2021-10-20 09:25] VITALS: TEMP 98.3
[2021-10-20] MEDS ORDERED: PROPOFOL 10 MG/ML 20 ML VIAL IV ONE (09:56)
--- NOTE | 2021-10-20 09:59 | P.GSHP ---
History of Present Illness H&P Date: 10/20/21 Chief Complaint: Screening colonoscopy This a 76-year-old male who presents today for screening colonoscopy. Patient denies a significant GI complaints. Past Medical History Past Medical History: Coronary Artery Disease (CAD), Cancer, GERD/Reflux, Hyperlipidemia, Hypertension, Myocardial Infarction (OR), Musculoskeletal Disorder, Osteoarthritis (OA), Prostate Disorder Additional Past Medical History / Comment(s): SOB w/exertion, hx. skin cancer., hx of low bloodpressure & has passed out., pt monitors bp daily., scoliosis, spondylolithesis with chronic back pain., bph. Last Myocardial Infarction Date:: 06-13-20 History of Any Multi-Drug Resistant Organisms: None Reported Past Surgical History: Back Surgery, Heart Catheterization With Stent, Hernia Repair, Orthopedic Surgery Additional Past Surgical History / Comment(s): Tommie Inguinal hernia , tommie shoulder X 3,. cataracts , macular repair, 2 coronary stents (06/2020) Past Anesthesia/Blood Transfusion Reactions: No Reported Reaction Additional Past Anesthesia/Blood Transfusion Reaction / Comment(s): trouble urinating after longer surgeries Date of Last Stent Placement:: 06-13-20 Past Psychological History: No Psychological Hx Reported Smoking Status: Former smoker Past Alcohol Use History: None Reported Additional Past Alcohol Use History / Comment(s): quit smoking 02-27-92, smoked for 28 yrs., 1ppd or less Past Drug Use History: None Reported - Past Family History Father Additional Family Medical History / Comment(s): CHF, valvular heart disease. Sister(s) Family Medical History: Cancer Additional Family Medical History / Comment(s): colon cancer Medications and Allergies Home Medications Medication Instructions Recorded Confirmed Type Nitroglycerin Sl Tabs [Nitrostat] 0.4 mg SUBLINGUAL Q5M PRN #7 tab 06/18/20 10/13/21 Rx Aspirin 81 mg PO DAILY 09/21/20 10/13/21 History Atorvastatin [Lipitor] 40 mg PO HS 09/21/20 10/20/21 History Famotidine 20 mg PO DAILY PRN 09/21/20 10/20/21 History Losartan [Cozaar] 12.5 mg PO QAM 09/21/20 10/20/21 History Metoprolol Tartrate [Lopressor] 12.5 mg PO HS 09/21/20 10/20/21 History Psyllium Husk (with Sugar) 1 dose PO BID 09/21/20 10/13/21 History [Metamucil Powder] Tamsulosin HCl [Flomax] 0.4 mg PO HS 09/21/20 10/20/21 History Vit C/E/Zn/Coppr/Lutein/Zeaxan 1 cap PO BID 09/21/20 10/13/21 History [Preservision Areds 2 Softgel] Cholecalciferol [Vitamin D3 (25 50 mcg PO DAILY 03/31/21 10/20/21 History Mcg = 1000 Iu)] traMADol HCL [Ultram] 50 mg PO Q8H PRN 06/14/21 10/20/21 History Diclofenac Sodium Gel [Voltaren 2 gm TOPICAL BID 30 Days #100 gm 09/12/21 10/13/21 Rx Gel] Ibuprofen 600 mg PO Q8H 30 Days #90 tab 09/12/21 10/13/21 Rx Gabapentin [Neurontin] 200 mg PO HS 30 Days #30 cap 09/19/21 10/20/21 Rx Furosemide [Lasix] 20 mg PO DAILY 10/13/21 10/20/21 History Metoprolol Tartrate 25 mg PO QAM 10/13/21 10/20/21 History Spironolactone [Aldactone] 12.5 mg PO DAILY@1200 10/13/21 10/20/21 History Allergies Allergy/AdvReac Type Severity Reaction Status Date / Time adhesive tape AdvReac Unknown RED Verified 10/13/21 15:12 IRRITATED SKIN Surgical - Exam Vital Signs Temp Pulse Resp BP Pulse Ox 98.3 F 100 16 122/77 96 10/20/21 09:23 10/20/21 09:23 10/20/21 09:23 10/20/21 09:23 10/20/21 09:23 - General well developed, well nourished, no distress - Eyes PERRL - ENT normal pinna - Neck no masses - Respiratory normal expansion - Cardiovascular Rhythm: regular - Abdomen Abdomen: soft, non tender Assessment and Plan Assessment: We'll perform screening colonoscopy
--- NOTE | 2021-10-20 10:13 | P.OP ---
Date of Procedure: 10/20/21 Preoperative Diagnosis: Screening colonoscopy Postoperative Diagnosis: Severe diverticulosis of sigmoid and left colon Procedure(s) Performed: Colonoscopy Anesthesia: MAC Surgeon: Wesley Sosa Pathology: none sent Condition: stable Disposition: PACU Description of Procedure: The patient's placed on the endoscopy table in the lateral position. He received IV sedation. Digital rectal exam was performed. This revealed no ebonized. The flexible colonoscope was then placed in patient's anus and passed throughout the entire colon. The ileocecal valve visualized. The cecum, ascending and transverse colon appeared normal. In the descending and sigmoid colon there was extensive diverticular disease. The scope was then brought back the rectum and this appeared normal. Scope withdrawn for patient.
[2021-10-20 10:33] VITALS: BP 122/83
[2021-10-20 10:38] VITALS: PULSE 71; RESP 18
== END 2021-10-20 10:53 | disposition home or self-care (01) ==
LOC: ORWHC2ENDO 09:02
PROVIDERS: ATTEND Surgery
DX: Z12.11 Encounter for screening for malignant neoplasm of colon (principal); K57.30 Diverticulosis of large intestine without perforation or abscess without bleeding; I25.10 Atherosclerotic heart disease of native coronary artery without angina pectoris; K21.9 Gastro-esophageal reflux disease without esophagitis; I10 Essential (primary) hypertension; E78.5 Hyperlipidemia, unspecified; I25.2 Old myocardial infarction; M19.90 Unspecified osteoarthritis, unspecified site; N42.9 Disorder of prostate, unspecified; M79.9 Soft tissue disorder, unspecified; N40.0 Benign prostatic hyperplasia without lower urinary tract symptoms; M43.10 Spondylolisthesis, site unspecified; G89.29 Other chronic pain; R06.02 Shortness of breath; Z85.828 Personal history of other malignant neoplasm of skin; Z86.79 Personal history of other diseases of the circulatory system; Z98.890 Other specified postprocedural states; Z95.5 Presence of coronary angioplasty implant and graft; Z98.41 Cataract extraction status, right eye; Z98.42 Cataract extraction status, left eye; Z87.891 Personal history of nicotine dependence; Z82.49 Family history of ischemic heart disease and other diseases of the circulatory system; Z80.0 Family history of malignant neoplasm of digestive organs; Z79.82 Long term (current) use of aspirin; Z79.899 Other long term (current) drug therapy; Z91.040 Latex allergy status
CPT/HCPCS: J2704; G0105

== ENCOUNTER → 2021-11-07 | Outpatient (CLI) | payer MEDICARE ==
[2021-11-07 13:27] VITALS: BP 108/73; PULSE 65; RESP 16; TEMP 97.8
--- NOTE | 2021-11-07 14:24 | P.PAINPG ---
Objective - Vital Signs Vital signs: Intake & Output 11/06/21 11/07/21 11/07/21 18:59 06:59 18:59 Weight 102.058 kg PQRS Measure Charge Sheet Comment: A 76 yr old male w at side with a history of severe and chronic low back pain secondary to lumbar degenerative disc diseases and lumbar spondylosis with facet arthropathy without myelopathy presents today for medication refills. Pain level is currently at 3/10 in intensity, intermittent, localized in the lower lumbar spine, dull/ achy in character w shooting towards the BLEs. Pain is provoked as high as 9/10 by standing & walking for periods of 20 min or more. Pain is alleviated with PT x 4 wks in August 2021, massage therapy weekly x 1 mo last year, heat, ice, meds (Neurontin, Tramadol, Ibuprofen, Voltaren gel), sitting w LEs elevated, repostioining and rest. Patient is currently on Neurontin Patient denies any side effects of the medication(s), denies excessive drowsiness or sleepiness, denies suicidal ideation and reports that the current pain medication is helping to control the pain and improve activities of daily living. Patient denies any motor or sensory deficits. Patient denies any fever or night sweats, denies any change in the bowel movements or urination. Physical Examination: -Constitutional: Cooperative. Not in acute distress . - Neurologic: Cranial nerve II to XII intact. No focal neurological deficits. - Psychatric: Alert & oriented x 3. Matching mood & appropriate affect. Judgment and insight intact. - Musculoskeletal: Cervical spine: Muscle bulk/ tone/ strength in the bilateral upper extremities normal Vertebral body tenderness to palpation over Spurling test positive Distraction test positive Facet loading test positive Thoracic spine Muscle bulk / tone/ strength in the bilateral paraspinal muscles normal Vertebral body tender to palpation over Facet loading test positive Lumbar spine: Motor bulk/ tone/ strength lower extremities , thigh and legs : 5/5 Deep tendon reflexes : Normal Knee Jerk. Normal Ankle Jerk . Vertebral body tenderness to palpation Lumbar Facet Loading Test positive over BL L5-S1 w jump reflex Straight Leg Raise: positive at 30 degrees right side/ left side Gaenslen's Test positive Sacral spine : Severe tenderness over the Sacroiliac joint: right side / left side Range of motion: Flexion of the lumbar spine <60 degrees Range of motion: Extension of the lumbar spine <20 degrees Gaenslen's Test positive Benito's Test positive Sirisha test: positive right side / left side Thigh Thrust Test Sacral Thrust Test Assessment and plan: Chronic low back pain secondary to lumbar degenerative disc disease , lumbar spondylosis with facet arthropathy without myelopathy Chronic and current use of high-risk medication (Opioids). The patient was counseled about risk of opioid use, psychological risk associated with opioids and was orally counseled to not overuse , divert or sell medications. Pt is to store medication in a safe location. The patient is counseled against driving while using narcotic medications and also not to use alcohol or any illicit recreational drugs. Patient verbalized understanding that the lack of compliance will result in failure to renew narcotic prescription(s) as well as possible discharge from the clinic Diagnoses, prognosis and treatment options including but not limited to physical therapy, surgical interventions, interventional therapies and medication management including narcotics and adjuvant medication were discussed. All patient questions answered MAPS reviewed and it was appropriate. UDS completed tod ay 11/07/21. UDS from 04/12/21 reviewed and consistent. Prescription refill for Neurontin 200mg #30 w 1 RF I have spent less than 30 minutes on patient care today. Dr Dodd was available by phone for the evaluation of this patient. The time was used to review the medical records including relevant urine studies and Prescription history (MAPs), review of the available imaging, evaluation and examination of the patient, coordination of care with the medical staff and if applicable referring physicians, as well as creation of the medical record PQRS Narrative: Narcotic Agreement Date Signed 12/13/20 Hx Alcohol Use (MH) No Home Medications: Ambulatory Orders Nitroglycerin Sl Tabs [Nitrostat] 0.4 mg SUBLINGUAL Q5M PRN #7 tab 06/18/20 Aspirin 81 mg PO DAILY 09/21/20 Atorvastatin [Lipitor] 40 mg PO HS 09/21/20 Famotidine 20 mg PO DAILY PRN 09/21/20 Losartan [Cozaar] 12.5 mg PO QAM 09/21/20 Metoprolol Tartrate [Lopressor] 12.5 mg PO HS 09/21/20 Psyllium Husk (with Sugar) [Metamucil Powder] 1 dose PO BID 09/21/20 Tamsulosin HCl [Flomax] 0.4 mg PO HS 09/21/20 Vit C/E/Zn/Coppr/Lutein/Zeaxan [Preservision Areds 2 Softgel] 1 cap PO BID 09/21/20 Cholecalciferol [Vitamin D3 (25 Mcg = 1000 Iu)] 50 mcg PO DAILY 03/31/21 traMADol HCL [Ultram] 50 mg PO Q8H PRN 06/14/21 Diclofenac Sodium Gel [Voltaren Gel] 2 gm TOPICAL BID 30 Days #100 gm 09/12/21 Ibuprofen 600 mg PO Q8H 30 Days #90 tab 09/12/21 Furosemide [Lasix] 20 mg PO DAILY 10/13/21 Metoprolol Tartrate 25 mg PO QAM 10/13/21 Spironolactone [Aldactone] 12.5 mg PO DAILY@1200 10/13/21 Gabapentin [Neurontin] 200 mg PO HS 30 Days #30 cap 11/07/21 Controlled Substance Measures - Controlled Substance Measures Is patient prescribed a controlled substance at discharge?: Yes When asked, does pt state using other controlled substances?: Yes If prescribed controlled substance>3 days was MAPS reviewed?: Yes If Rx opioid, was Start Talking consent form obtained?: Yes Was information provided regarding opioid addiction?: Yes
== END ==
LOC: PNWHC3 12:49
PROVIDERS: ATTEND Specialist
DX: M51.36 Other intervertebral disc degeneration, lumbar region (principal); M47.816 Spondylosis without myelopathy or radiculopathy, lumbar region; G89.29 Other chronic pain; Z79.891 Long term (current) use of opiate analgesic; Z51.81 Encounter for therapeutic drug level monitoring; Z91.048 Other nonmedicinal substance allergy status
CPT/HCPCS: 80307; G0482; G0463; 99211; 99212

== ENCOUNTER → 2022-01-02 | Outpatient (CLI) | payer MEDICARE ==
[2022-01-02 13:30] VITALS: BP 91/59; PULSE 70; RESP 18; TEMP 98
--- NOTE | 2022-01-02 14:52 | P.PAINPG ---
PQRS Measure Charge Sheet Comment: A 76 yr old male w at side with a history of severe and chronic low back pain secondary to lumbar DDD and spondylosis with facet arthropathy without myelopathy presents today for medication refills. Pain level is currently at 8 /10 in intensity, constant, localized in the lower lumbar spine, sharp in character w shooting towards the L flank. Pain is provoked by standing/ walking for periods of 15 min or more, or lifting. Pain is alleviated with PT x 5 wks which he is currently in, massage therapy 2 yrs ago, heat, ice, medications (Neurontin, Ibu), topicals, reclining and rest. Patient is currently on Neruontin, Ibu Patient denies any side effects of the medication(s), denies excessive drowsin ess or sleepiness, denies suicidal ideation and reports that the current pain medication is helping to control the pain and improve activities of daily living. Patient denies any motor or sensory deficits. Patient denies any fever or night sweats, denies any change in the bowel movements or urination. Physical Examination: -Constitutional: Cooperative. Not in acute distress . - Neurologic: Cranial nerve II to XII intact. No focal neurological deficits. - Psychatric: Alert & oriented x 3. Matching mood & appropriate affect. Judgment and insight intact. - Musculoskeletal: Cervical spine: Muscle bulk/ tone/ strength in the bilateral upper extremities normal Vertebral body tenderness to palpation over Spurling test positive Distraction test positive Facet loading test positive Thoracic spine Muscle bulk / tone/ strength in the bilateral paraspinal muscles normal Vertebral body tender to palpation over Facet loading test positive Lumbar spine: Motor bulk/ tone/ strength lower extremities , thigh and legs : 5/5 Deep tendon reflexes : Normal Knee Jerk. Normal Ankle Jerk . Vertebral body tenderness to palpation over L5, S1 Lumbar Facet Loading Test positive Straight Leg Raise: positive at 30 degrees right side/ left side Gaenslen's Test positive Sacral spine : Severe tenderness over the Sacroiliac joint: right side / left side Range of motion: Flexion of the lumbar spine <60 degrees Range of motion: Extension of the lumbar spine <20 degrees Gaenslen's Test positive Sirisha test: positive right side / left side Thigh Thrust Test Sacral Thrust Test Assessment and plan: Chronic low back pain secondary to lumbar degenerative disc disease, spondylosis with facet arthropathy without myelopathy Reviewed MRI of the lumbar spine from 2021. Will consider Caudal DIANE w lysis. Risks, benefits of procedure discussed and pt verbalized understanding. Admits to anticoagulant use or medical history of diabetes. Protocol for discontinuation / continuation of medications georgi procedure discussed. Chronic and current use of high-risk medication (Opioids). The patient was counseled about risk of opioid use, psychological risk associated with opioids and was orally counseled to not overuse , divert or sell medications. Pt is to store medication in a safe location. The patient is counseled against driving while using narcotic medications and also not to use alcohol or any illicit recreational drugs. Patient verbalized understanding that the lack of compliance will result in failure to renew narcotic prescription(s) as well as possible discharge from the clinic Diagnoses, prognosis and treatment options including but not limited to physical therapy, surgical interventions, interventional therapies and medication management including narcotics and adjuvant medication were discussed. All patient questions answered MAPS reviewed and it was appropriate. UDS from 11/07/21 reviewed and consistent Prescription refill for Neurontin 300mg #90, Ibuprofen 600mg #60 w 2 RF I have spent less than 30 minutes on patient care today. Dr Dodd was available by phone for the evaluation of this patient. The time was used to review the medical records including relevant urine studies and Prescription history (MAPs), review of the available imaging, evaluation and examination of the patient, coordination of care with the medical staff and if applicable referring physicians, as well as creation of the medical record - Pain Location Bilateral Lower Back Non-Pharmacological Interventions: Heat, Ice, Inactivity, Massage, Physical Therapy, Position/Reposition, Sitting Pharmacological Interventions: PRN Medication, Topical Medication PQRS Narrative: Narcotic Agreement Date Signed 09/12/21 Hx Alcohol Use (MH) No Home Medications: Ambulatory Orders Nitroglycerin Sl Tabs [Nitrostat] 0.4 mg SUBLINGUAL Q5M PRN #7 tab 06/18/20 Aspirin 81 mg PO DAILY 09/21/20 Atorvastatin [Lipitor] 40 mg PO HS 09/21/20 Famotidine 20 mg PO DAILY PRN 09/21/20 Losartan [Cozaar] 12.5 mg PO QAM 09/21/20 Metoprolol Tartrate [Lopressor] 12.5 mg PO HS 09/21/20 Psyllium Husk (with Sugar) [Metamucil Powder] 1 dose PO BID 09/21/20 Tamsulosin HCl [Flomax] 0.4 mg PO HS 09/21/20 Vit C/E/Zn/Coppr/Lutein/Zeaxan [Preservision Areds 2 Softgel] 1 cap PO BID 09/21/20 Cholecalciferol [Vitamin D3 (25 Mcg = 1000 Iu)] 50 mcg PO DAILY 03/31/21 traMADol HCL [Ultram] 50 mg PO Q8H PRN 06/14/21 Diclofenac Sodium Gel [Voltaren Gel] 2 gm TOPICAL BID 30 Days #100 gm 09/12/21 Furosemide [Lasix] 20 mg PO DAILY 10/13/21 Metoprolol Tartrate 25 mg PO QAM 10/13/21 Spironolactone [Aldactone] 12.5 mg PO DAILY@1200 10/13/21 Gabapentin [Neurontin] 100 mg PO HS 30 Days #60 cap 11/28/21 Gabapentin [Neurontin] 200 mg PO HS 30 Days #30 cap 01/02/22 Ibuprofen 600 mg PO Q8H 30 Days #90 tab 01/02/22 Controlled Substance Measures - Controlled Substance Measures Is patient prescribed a controlled substance at discharge?: Yes When asked, does pt state using other controlled substances?: No If prescribed controlled substance>3 days was MAPS reviewed?: Yes If Rx opioid, was Start Talking consent form obtained?: Yes Was information provided regarding opioid addiction?: Yes
== END ==
LOC: PNWHC3 12:55
PROVIDERS: ATTEND Specialist
DX: M47.816 Spondylosis without myelopathy or radiculopathy, lumbar region (principal); M51.36 Other intervertebral disc degeneration, lumbar region; G89.29 Other chronic pain; Z79.891 Long term (current) use of opiate analgesic; E11.9 Type 2 diabetes mellitus without complications; Z79.01 Long term (current) use of anticoagulants; Z91.048 Other nonmedicinal substance allergy status; Z79.84 Long term (current) use of oral hypoglycemic drugs
CPT/HCPCS: 99211

== ENCOUNTER 2022-02-14 08:49 | Day surgery (SDC) | payer MEDICARE ==
[2022-02-09 14:42] VITALS: BMI 30.5
[2022-02-14] MEDS ORDERED: LACTATED RINGERS 1,000 ML IV SCH (09:48)
[2022-02-14] MEDS ORDERED: LIDOCAINE 1% (10MG/ML) FOR IV START INTRADERMA PRN (09:48)
[2022-02-14 10:11] VITALS: TEMP 97.6
[2022-02-14] MEDS ORDERED: MIDAZOLAM 2 MG/2 ML VIAL ONE (10:23)
[2022-02-14] MEDS ORDERED: fentaNYL (PF) 50 MCG/ML 2 ML AMP ONE (10:23)
[2022-02-14] MEDS ORDERED: IOPAMIDOL M200 10 ML VIAL ONE (10:23)
[2022-02-14] MEDS ORDERED: methylPREDNISolone ACETATE 40 MG/ML 1 ML VIAL ONE (10:23)
--- NOTE | 2022-02-14 10:41 | P.PCN ---
Date of Procedure: 02/14/22 Procedure(s) Performed: PREOP DIAGNOSIS: 1- Lumbar postlaminectomy syndrome. POSTOP DIAGNOSIS:1- Lumbar postlaminectomy syndrome. PROCEDURE: 1-Caudal epidural steroid injection with epidurolysis and epidurogram under fluoroscopic guidance. (Fluoroscopy images available in the radiology Department ) 2-caudal epidurogram. ANESTHESIA: moderate sedation, with Versed 1 mg and fentanyl 50 g. Sedation start time : 1029 . Sedation stop time : 1039 EBL: Minimal. PROCEDURE INDICATION: The patient with post-laminectomy syndrome with low back pain and radiculopathy radiating down in both legs, here for a caudal epidural steroid injection with epidurolysis. PROCEDURE DESCRIPTION: The patient was seen and identified in the preoperative area. Risks, benefits, complications, and alternatives were discussed with the patient. The patient agreed to proceed with the procedure and signed the consent. IV was started, and vital signs were stable. Patient was taken to the OR and time out was completed. The patient was placed in the prone position on procedure table and a pillow was placed under the abdomen to reduce lumbar lordosis. The lumbosacral area was prepped and draped in the usual sterile fashion. Vital signs were closely monitored during the procedure. lateral view and the anterior-posterior plates of the sacrum were identified with infiltration of the area overlying the sacral hiatus with 1% lidocaine .A 17 gauge RK epidural needle was used to advance through the sacral hiatus into the caudal epidural space. Omnipaque 180 dye. 2cc was injected and the position of the needle was verified to be in the midline. A Racz catheter was introduced into the epidural space and was advanced towards the L5-S1 interspace under direct fluoroscopic guidance. Multiple passes were made with the catheter for lysis of epidural adhesions. Depo-Medrol 40 mg ( preservative-free ) with 3ml of preservative free Lidocaine 1% and 5 ml of preservative free normal saline was injected slowly. Additional spread was seen to L4 under fluoroscopy. The needle and the catheter were withdrawn intact. EPIDUROGRAM: Omnipaque 180 mg dye 2 ml was injected with spread of the dye into the caudal epidural space and with spread cutoff at L5 prior to epidurolysis. Post epidurolysis dye 2 ml was injected and spread was seen to L3-4.There was further spread of the solution together with the dye above the L3 COMPLICATIONS: None. DISPOSITION / PLANS: The patient was placed in a supine position and transferred to the recovery area in a stable condition for observation and was discharged from the recovery room after meeting discharge criteria. Home discharge instructions given to the patient by the staff. The patient was reexamined prior to discharge. The patient will schedule a follow up in the clinic in 2-4 weeks.
[2022-02-14] MEDS ORDERED: IV FLUID CONTINUATION 1,000 ML IV ONE (10:44)
[2022-02-14 10:46] VITALS: RESP 18
[2022-02-14 11:02] VITALS: BP 108/57; PULSE 84
--- NOTE | 2022-02-14 13:24 | FL ---
EXAMINATION TYPE: FL guided pain mgmt statistic DATE OF EXAM: 02/14/2022 HISTORY: Fluoroscopy time 6 seconds of fluoroscopy provided. IMPRESSION: 1. Fluoroscopy time.
== END 2022-02-14 11:20 | disposition home or self-care (01) ==
LOC: ORPAIN 08:49
PROVIDERS: ATTEND Specialist
DX: M96.1 Postlaminectomy syndrome, not elsewhere classified (principal); M47.816 Spondylosis without myelopathy or radiculopathy, lumbar region; Z91.048 Other nonmedicinal substance allergy status; Z79.1 Long term (current) use of non-steroidal anti-inflammatories (NSAID); Z79.82 Long term (current) use of aspirin
CPT/HCPCS: 62264; J2250; J1030; J3010; Q9966; C1894; 99152

== ENCOUNTER → 2022-03-02 | Outpatient (CLI) | payer MEDICARE ==
--- NOTE | 2022-03-02 14:58 | P.PAINPG ---
PQRS Measure Charge Sheet Comment: A 76 yr old male w at side with a history of severe and chronic low back pain secondary to lumbar DDD and spondylosis with facet arthropathy without myelopathy presents today for evaluation s/p Caudal DIANE w lysis. Pt states she experienced 50 % pain relief x 2 wks s/p procedure. Pain level is provoked at 8 /10 in intensity, constant, localized in the lumbar spine, sharp in character w shooting towards the L mid back. Pain is provoked by standing/ walking for periods of 15 min or more. Pain is alleviated with PT x 6 wks in Dec 2021, home exercise daily, heat, meds (Neurontin, Tramadol), topicals, use of a cane for ambulation, repositioning and rest. Interventional pain procedures completed include Caudal DIANE w lysis Patient is currently on Neurontin, Tramadol, Voltaren gel Patient denies any side effects of the medication(s), denies excessive drowsiness or sleepiness, denies suicidal ideation and reports that the current pain medication is helping to control the pain and improve activities of daily living. Patient denies any motor or sensory deficits. Patient denies any fever or night sweats, denies any change in the bowel movements or urination. Physical Examination: -Constitutional: Cooperative. Not in acute distress . - Neurologic: Cranial nerve II to XII intact. No focal neurological deficits. - Psychatric: Alert & oriented x 3. Matching mood & appropriate affect. Judgment and insight intact. - Musculoskeletal: Cervical spine: Muscle bulk/ tone/ strength in the bilateral upper extremities normal Vertebral body tenderness to palpation over Spurling test positive Distraction test positive Facet loading test positive Thoracic spine Muscle bulk / tone/ strength in the bilateral paraspinal muscles normal Vertebral body tender to palpation over T12 Facet loading test positive Lumbar spine: Motor bulk/ tone/ strength lower extremities , thigh and legs : 5/5 Deep tendon reflexes : Normal Knee Jerk. Normal Ankle Jerk . Vertebral body tenderness to palpation over Lumbar Facet Loading Test positive Straight Leg Raise: positive at 30 degrees right side/ left side Gaenslen's Test positive Sacral spine : Severe tenderness over the Sacroiliac joint: right side / left side Range of motion: Flexion of the lumbar spine <60 degrees Range of motion: Extension of the lumbar spine <20 degrees Gaenslen's Test positive Sirisha test: positive right side / left side Thigh Thrust Test Sacral Thrust Test Assessment and plan: Chronic mid to low back pain secondary to thoraco lumbar DDD, spondylosis with facet arthropathy without myelopathy Recommendation of L paramedian T12-L1. May need a series of injections, up to 3 within a 6 mo period, for optimal pain relief. Risks, benefits of p rocedure discussed and pt verbalized understanding. Admits to anticoagulant use or medical history of diabetes. Protocol for discontinuation/ continuation of medications goergi procedure discussed. Chronic and current use of high-risk medication (Opioids). The patient was counseled about risk of opioid use, psychological risk associated with opioids and was orally counseled to not overuse , divert or sell medications. Pt is to store medication in a safe location. The patient is counseled against driving while using narcotic medications and also not to use alcohol or any illicit recreational drugs. Patient verbalized understanding that the lack of compliance will result in failure to renew narcotic prescription(s) as well as possible discharge from the clinic Diagnoses, prognosis and treatment options including but not limited to physical therapy, surgical interventions, interventional therapies and medication management including narcotics and adjuvant medication were discussed. All patient questions answered MAPS reviewed and it was appropriate. Prescription refill for Neurontin #30 w 1 RF I have spent less than 30 minutes on patient care today. Dr Dodd was available by phone for the evaluation of this patient. The time was used to review the medical records including relevant urine studies and Prescription history (MAPs), review of the available imaging, evaluation and examination of the patient, coordination of care with the medical staff and if applicable referring physicians, as well as creation of the medical record PQRS Narrative: Narcotic Agreement Date Signed 09/12/21 Hx Alcohol Use (MH) No Home Medications: Ambulatory Orders Nitroglycerin Sl Tabs [Nitrostat] 0.4 mg SUBLINGUAL Q5M PRN #7 tab 06/18/20 Aspirin 81 mg PO DAILY 09/21/20 Atorvastatin [Lipitor] 40 mg PO HS 09/21/20 Famotidine 20 mg PO DAILY 09/21/20 Losartan [Cozaar] 12.5 mg PO QAM 09/21/20 Metoprolol Tartrate [Lopressor] 12.5 mg PO HS 09/21/20 Psyllium Husk (with Sugar) [Metamucil Powder] 1 dose PO BID 09/21/20 Tamsulosin HCl [Flomax] 0.8 mg PO HS 09/21/20 Vit C/E/Zn/Coppr/Lutein/Zeaxan [Preservision Areds 2 Softgel] 1 cap PO BID 09/21/20 traMADol HCL [Ultram] 50 mg PO Q8H PRN 06/14/21 Diclofenac Sodium Gel [Voltaren Gel] 2 gm TOPICAL BID 30 Days #100 gm 09/12/21 Furosemide [Lasix] 20 mg PO DAILY 10/13/21 Metoprolol Tartrate 25 mg PO QAM 10/13/21 Spironolactone [Aldactone] 12.5 mg PO DAILY@1200 10/13/21 Acetaminophen [Tylenol Arthritis] 1,300 mg PO DIRECTED PRN 02/09/22 Gabapentin [Neurontin] 100 mg PO HS 30 Days #30 cap 03/02/22 Controlled Substance Measures - Controlled Substance Measures Is patient prescribed a controlled substance at discharge?: Yes When asked, does pt state using other controlled substances?: No If prescribed controlled substance>3 days was MAPS reviewed?: Yes If Rx opioid, was Start Talking consent form obtained?: Yes Was information provided regarding opioid addiction?: Yes
[2022-03-02 14:59] VITALS: BP 93/64; PULSE 62; RESP 16; TEMP 98.6
== END ==
LOC: PNWHC3 13:30
PROVIDERS: ATTEND Specialist
DX: M47.815 Spondylosis without myelopathy or radiculopathy, thoracolumbar region (principal); M51.35 Other intervertebral disc degeneration, thoracolumbar region; Z79.82 Long term (current) use of aspirin; Z79.891 Long term (current) use of opiate analgesic; Z91.048 Other nonmedicinal substance allergy status
CPT/HCPCS: 99211

== ENCOUNTER 2022-05-05 09:13 | Day surgery (SDC) | payer MEDICARE ==
[2022-05-05 09:54] VITALS: TEMP 97.3
[2022-05-05] MEDS ORDERED: methylPREDNISolone ACETATE 40 MG/ML 1 ML VIAL ONE (10:26)
[2022-05-05] MEDS ORDERED: MIDAZOLAM 2 MG/2 ML VIAL ONE (10:26)
[2022-05-05] MEDS ORDERED: ROPIVACAINE 5 MG/ML 20 ML AMPULE ONE (10:26)
[2022-05-05] MEDS ORDERED: fentaNYL (PF) 50 MCG/ML 2 ML AMP ONE (10:26)
--- NOTE | 2022-05-05 10:46 | P.PCN ---
Date of Procedure: 05/05/22 Procedure(s) Performed: PREOPERATIVE DIAGNOSIS : 1- Lumbar spondylosis with Facet Arthropathy without myelopathy . 2- Lumber degenerative disc disease POSTOPERATIVE DIAGNOSIS: 1- Lumbar spondylosis with Facet Arthropathy without myelopathy . 2- Lumber degenerative disc disease PROCEDURE: Diagnostic bilateral L1 , L2 , and L3 medial branch block under fluoroscopy guidance(fluoroscopy images available in the radiology Department ) ( To target the facet joint between bilateral L1-2 , and L2-3 )#1 st ANESTHESIA:, Monitored anesthesia care as per anesthesia department. EBL: Minimal COMPLICATION: None PROCEDURE INDICATION: Chronic low back pain secondary to Facet arthropathy unresponsive to conservative treatment. PROCEDURE DESCRIPTION: the patient was seen and identified in the preop holding area , risks and benefits and possible complications of the procedure and alternative were discussed with the patient, and the patient agreed to proceed with the procedure and signed the consent and vital signs monitored during the procedure and fluoroscopy was used to maximize the benefit and accuracy of the needle placement, and sedation was given to decrease patient anxiety, patient was taken to the procedure room and placed in prone position vital signs monitored in the back prepped with chlorhexidine X3 then under strict sterile technique using a right oblique fluoroscopy ,the junction of the transverse process and the superior articulating process of the right L1, L2 , and L3 vertebra which corresponding to the fluoroscopy image of the eye of the Marv dog on the block side for the medial branches and subsequently , after local infiltration of skin and subcu tissuies with Ropivacaine 0.5 % , one mL at each level ,then 22-gauge Quincke-type needles , 3 needle was used , each one of them placed at the junction of the base of the transverse process and the superior articular process at the appropriate level, and the needle was advanced until the periosteum contacted, needle placement confirmed with AP oblique and lateral view and after appropriate needle placement confirmed, and after negative aspiration for heme and CSF and there was no paresthesia 1-1/2 mL of Ropivacaine 0.5% mixed with 20 mg Depo-Medrol , then 0.5 mL injected at each level after negative aspiration the needle subsequently removed and the same procedure repeated for the left side at L1 , L,2, [id number]. At the end of the procedure and the needles removed and a bandage applied after the skin was cleaned the cleaning solution patient taken to recovery room in stable condition and monitors in the recovery room for 20-30 minutes and discharged home in stable condition after discharge criteria met and patient will follow up with the pain clinic in 2-4 weeks
[2022-05-05] MEDS ORDERED: IV FLUID CONTINUATION 800 ML IV ONE (10:48)
--- NOTE | 2022-05-05 10:57 | FL ---
EXAMINATION TYPE: FL guided pain mgmt statistic DATE OF EXAM: 05/05/2022 HISTORY: Fluoroscopy time 18 SECONDS. DAP [id number]. of fluoroscopy provided. IMPRESSION: 1. Fluoroscopy time.
[2022-05-05 11:00] VITALS: RESP 20
[2022-05-05 11:11] VITALS: BP 102/66; PULSE 57
== END 2022-05-05 11:29 | disposition home or self-care (01) ==
LOC: ORPAIN 09:13
PROVIDERS: ATTEND Specialist
DX: M51.16 Intervertebral disc disorders with radiculopathy, lumbar region (principal); M47.26 Other spondylosis with radiculopathy, lumbar region; G89.29 Other chronic pain; I25.10 Atherosclerotic heart disease of native coronary artery without angina pectoris; I10 Essential (primary) hypertension; E78.5 Hyperlipidemia, unspecified; I25.2 Old myocardial infarction; N40.0 Benign prostatic hyperplasia without lower urinary tract symptoms; K21.9 Gastro-esophageal reflux disease without esophagitis; Z88.8 Allergy status to other drugs, medicaments and biological substances; Z79.899 Other long term (current) drug therapy
CPT/HCPCS: 64493; 64494 ×2; J2250; J1030; J3010; J2795

== ENCOUNTER → 2022-05-22 | Outpatient (CLI) | payer MEDICARE ==
[2022-05-22 14:39] VITALS: BP 132/80; PULSE 59; RESP 18
--- NOTE | 2022-05-22 16:29 | P.PAINPG ---
PQRS Measure Charge Sheet Comment: A 76 yr old male w at side with a history of severe and chronic LBP secondary to lumbar DDD and spondylosis with facet arthropathy without myelopathy presents today for medication refills and evaluation s/p BL facet block of the medial branches L1-L2, L2-L3 #1. Pt states he experienced 0 % pain relief x 1 day s/p procedure. Pain level is provoked at 9/10 in intensity, constant, localized in the lumbar spine, sharp in character w shooting towards the BLEs and feet. Pain is provoked by walking/ standing for periods of 30 min or more. Pain is alleviated with PT x 5 wks in Nov 2021, massage therapy in 2020, heat, occasional ice, medications, topical, reclining, use of a cane for ambulatory assistance, laying on his side, repositioning and rest. Interventional pain procedures completed include BL MBB L1-L3 x1 Patient is currently on Neurontin 100mg #30 Patient denies any side effects of the medication(s), denies excessive drowsiness or sleepiness, denies suicidal ideation and reports that the current pain medication is helping to control the pain and improve activities of daily living. Patient denies any motor or sensory deficits. Patient denies any fever or night sweats, denies any change in the bowel movements or urination. Physical Examination: -Constitutional: Cooperative. Not in acute distress . - Neurologic: Cranial nerve II to XII intact. No focal neurological deficits. - Psychatric: Alert & oriented x 3. Matching mood & appropriate affect. Judgment and insight intact. - Musculoskeletal: Cervical spine: Muscle bulk/ tone/ strength in the bilateral upper extremities normal Vertebral body tenderness to palpation over Spurling test positive Distraction test positive Facet loading test positive TTP Thoracic spine Muscle bulk / tone/ strength in the bilateral paraspinal muscles normal Vertebral body tender to palpation over Facet loading test positive TTP Lumbar spine: Motor bulk/ tone/ strength lower extremities , thigh and legs : 5/5 Deep tendon reflexes : Normal Knee Jerk. Normal Ankle Jerk . Vertebral body tenderness to palpation over Lumbar Facet Loading Test positive TTP over BL paraspinal muscles Straight Leg Raise: positive at 30 degrees right side/ left side Gaenslen's Test positive Sacral spine : Severe tenderness over the Sacroiliac joint: right side / left side Range of motion: Flexion of the lumbar spine <60 degrees Range of motion: Extension of the lumbar spine <20 degrees Gaenslen's Test positive right side / left side Sirisha test: positive right side / left side Thigh Thrust Test positive right side / left side Sacral Thrust Test positive right side / left side Assessment and plan: Chronic LBP secondary to lumbar DDD, spondylosis with facet arthropathy without myelopathy Recommendation of BL TPIs of L1-S1. Risks, benefits of procedure discussed and pt verbalized understanding. All questions answered. Chronic and current use of high-risk medication (Opioids). The patient was counseled about risk of opioid use, psychological risk associated with opioids and was orally counseled to not overuse , divert or sell medications. Pt is to store medication in a safe location. The patient is counseled against driving while using narcotic medications and also not to use alcohol or any illicit recreational drugs. Patient verbalized understanding that the lack of compliance will result in failure to renew narcotic prescription(s) as well as possible discharge from the clinic Diagnoses, prognosis and treatment options including but not limited to physical therapy, surgical interventions, interventional therapies and medication management including narcotics and adjuvant medication were discussed. All patient questions answered MAPS reviewed and it was appropriate. Blood tox screen collected today 05/22/22. Prescription refill for Neurontin 100mg #30 w 1 RF. I have spent less than 30 minutes on patient care today. Dr Dodd was available by phone for the evaluation of this patient. The time was used to review the medical records including relevant urine studies and Prescription history (MAPs), review of the available imaging, evaluation and examination of the patient, coordination of care with the medical staff and if applicable referring physicians, as well as creation of the medical record PQRS Narrative: Narcotic Agreement Date Signed 09/12/21 Hx Alcohol Use (MH) No Home Medications: Ambulatory Orders Nitroglycerin Sl Tabs [Nitrostat] 0.4 mg SUBLINGUAL Q5M PRN #7 tab 06/18/20 Aspirin 81 mg PO DAILY 09/21/20 Atorvastatin [Lipitor] 40 mg PO HS 09/21/20 Famotidine 20 mg PO DAILY 09/21/20 Losartan [Cozaar] 25 mg PO HS 09/21/20 Metoprolol Tartrate [Lopressor] 25 mg PO HS 09/21/20 Psyllium Husk (with Sugar) [Metamucil Powder] 1 dose PO BID 09/21/20 Tamsulosin HCl [Flomax] 0.4 mg PO HS 09/21/20 Vit C/E/Zn/Coppr/Lutein/Zeaxan [Preservision Areds 2 Softgel] 1 cap PO BID 09/21/20 traMADol HCL [Ultram] 50 mg PO Q8H PRN 06/14/21 Furosemide [Lasix] 20 mg PO DAILY 10/13/21 Metoprolol Tartrate 50 mg PO QAM 10/13/21 Spironolactone [Aldactone] 12.5 mg PO DAILY@1200 10/13/21 Acetaminophen [Tylenol Arthritis] 1,300 mg PO BID 02/09/22 Diclofenac Sodium Gel [Voltaren Gel] 2 gm TOPICAL BID PRN 05/03/22 Gabapentin [Neurontin] 100 mg PO HS 30 Days #30 cap 05/22/22 Controlled Substance Measures - Controlled Substance Measures Is patient prescribed a controlled substance at discharge?: No
== END ==
LOC: PNWHC3 12:59
PROVIDERS: ATTEND Specialist
DX: M51.36 Other intervertebral disc degeneration, lumbar region (principal); G89.29 Other chronic pain; M47.816 Spondylosis without myelopathy or radiculopathy, lumbar region; Z79.891 Long term (current) use of opiate analgesic; Z79.82 Long term (current) use of aspirin; Z79.899 Other long term (current) drug therapy; Z91.048 Other nonmedicinal substance allergy status; Z02.83 Encounter for blood-alcohol and blood-drug test
CPT/HCPCS: 99211

== ENCOUNTER → 2022-05-22 | Outpatient (CLI) | payer MEDICARE ==
[2022-05-23 09:39] LABS: Serum Amphetamine Negative; Serum Barbiturates Negative; Serum Benzodiazepine Negative; Serum Cocaine Negative; Serum Methadone Negative; Serum Opiates Negative; Serum Phencyclidine Negative; Serum Propoxyphene Negative; Serum THC (Cannabis) Negative
== END | disposition home or self-care (01) ==
LOC: LABWHC1 13:56
PROVIDERS: ATTEND Physician Assistant Medical
DX: Z02.83 Encounter for blood-alcohol and blood-drug test (principal)
CPT/HCPCS: 36415; 80307

== ENCOUNTER → 2022-06-08 | Outpatient (CLI) | payer MEDICARE ==
--- NOTE | 2022-06-08 15:55 | CT ---
EXAMINATION TYPE: CT lumbar spine wo con DATE OF EXAM: 06/08/2022 3:05 PM COMPARISON: None HISTORY: postlaminectomy syndrome CT DLP: 998 mGycm Automated exposure control for dose reduction was used. Unenhanced CT of the lumbar spine was performed. Bone and soft tissue window settings are submitted as well as coronal and sagittal reconstructions. L1-L2: Severe degenerative disc disease with vacuum disc. Posterior disc bulge with partial encapsula ting spur. Effacement of ventral thecal sac with bilateral lateral recess stenosis. Facet joint arthr opathy with bilateral foraminal encroachment moderate to severe. L2-L3: Severe degenerative disc disease with vacuum disc. Posterior disc bulge with partial encapsula ting spur. Effacement of ventral thecal sac with bilateral lateral recess stenosis. Facet joint arthr opathy with bilateral foraminal encroachment moderate to severe. L3-L4: Severe degenerative disc disease with vacuum disc. Posterior disc bulge with partial encapsula ting spur. Effacement of ventral thecal sac with severe central stenosis. Disc endplate complex. Bila teral foraminal encroachment. L4-L5: Severe degenerative disc disease with vacuum disc. Posterior disc bulge with partial encapsula ting spur. Effacement of ventral thecal sac with severe central stenosis. Disc endplate complex seen. L5-S1: Severe degenerative disc disease with vacuum disc. Posterior disc bulge with partial encapsula ting spur. Effacement of ventral thecal sac with bilateral lateral recess stenosis. Facet joint arthr opathy with bilateral foraminal encroachment moderate to severe. IMPRESSION: 1. Severe multilevel degenerative disc disease and multilevel central stenosis.
== END | disposition home or self-care (01) ==
LOC: RADCTMAIN 14:36
PROVIDERS: ATTEND Neurological Surgery
DX: M51.37 Other intervertebral disc degeneration, lumbosacral region (principal); M47.817 Spondylosis without myelopathy or radiculopathy, lumbosacral region; M48.061 Spinal stenosis, lumbar region without neurogenic claudication; M96.1 Postlaminectomy syndrome, not elsewhere classified
CPT/HCPCS: 72131

== ENCOUNTER 2022-06-13 12:17 | Day surgery (SDC) | payer MEDICARE ==
[2022-06-09 11:02] VITALS: BMI 30.5
[~2022-06-13 12:17] MED LIST changes: -LIDOCAINE 1% (10MG/ML) FOR IV START INTRADERMA PRN
[2022-06-13 12:45] VITALS: RESP 18; TEMP 97.5
[2022-06-13] MEDS ORDERED: ROPIVACAINE 5 MG/ML 20 ML AMPULE ONE (12:54)
[2022-06-13] MEDS ORDERED: methylPREDNISolone ACETATE 40 MG/ML 1 ML VIAL ONE (12:54)
--- NOTE | 2022-06-13 12:59 | P.PCN ---
Date of Procedure: 06/13/22 Operative Findings: Procedure: Bilateral lumbar paraspinal trigger point injection Preoperative Diagnosis: myofascial pain syndrome Postoperative diagnosis: Same Anesthesia: None Surgeon: Tony Humphrey MD Indications for procedure: Patient with myofascial pain and palpable trigger points in the above mentioned muscles. The patient consents for an injection after an explanation of risks including but not limited to bleeding and infection, benefits, and alternatives and the patient has signed a consent form indicating understanding of all of them. Description of procedure: After informed consent was obtained the patient's painful area was sterilely prepped in the usual fashion with ChloraPrep. The trigger points were identified via palpation and the muscles were marked sterilely. Each trigger point was injected with a 25-gauge one and a half inch needle. At that point a solution consisting of 18 ml of 0.5% ropivacaine with 40mg of depomedrol was distributed evenly over the trigger points. The patient's vital signs were stable afterwards and the procedure was tolerated well. Patient was discharged home with follow-up instructions. It was explained to the patient that these injections are not curative but may help with the current symptoms. In order to strengthen the muscles involved, there needs to be dedicated exercise routine to strengthen the muscles and avoid significant muscle spasms. I've also discussed with the patient he should follow-up in the pain clinic to determine if he is a candidate for spinal cord stimulation
[2022-06-13 13:27] VITALS: BP 98/50; PULSE 78
== END 2022-06-13 13:35 | disposition home or self-care (01) ==
LOC: ORPAIN 12:17
PROVIDERS: ATTEND Hospitalist
DX: M79.18 Myalgia, other site (principal)
CPT/HCPCS: 20553

== ENCOUNTER → 2022-07-17 | Outpatient (CLI) | payer MEDICARE ==
[2022-07-17 12:21] VITALS: BP 103/67; PULSE 54; RESP 18
--- NOTE | 2022-07-20 07:43 | P.PAINPG ---
PQRS Measure Charge Sheet Comment: A 76 yr old male w at side with a history of severe and chronic LBP secondary to lumbar DDD and spondylosis with facet arthropathy without myelopathy presents today for medication refills and evaluation s/p Lumbar TPIs. Pt states he experienced 0 % pain relief s/p procedure. Pain level is provoked at 6/10 in intensity, constant, localized in the lumbar spine, sharp in character w shooting towards the BLEs and feet. Pain is provoked by walking/ standing for periods of 30 min or more. Pain is alleviated with PT x 4 wks which he is currently in, acupuncture treatments, massage therapy in 2020, heat, occasional ice, medications, topical, reclining, use of a cane for ambulatory assistance, laying on his side, repositioning and rest. Interventional pain procedures completed include BL MBB L1-L3 x1, Lumbar TPIs, Caudal w Lysis, L TFESI L6-S1 Patient is currently on Neurontin 100mg #30 Patient denies any side effects of the medication(s), denies excessive drowsiness or sleepiness, denies suicidal ideation and reports that the current pain medication is helping to control the pain and improve activities of daily living. Patient denies any motor or sensory deficits. Patient denies any fever or night sweats, denies any change in the bowel movements or urination. Physical Examination: -Constitutional: Cooperative. Not in acute distress . - Neurologic: Cranial nerve II to XII intact. No focal neurological deficits. - Psychatric: Alert & oriented x 3. Matching mood & appropriate affect. [place] gment and insight intact. - Musculoskeletal: Cervical spine: Muscle bulk/ tone/ strength in the bilateral upper extremities normal Vertebral body tenderness to palpation over Spurling test positive Distraction test positive Facet loading test positive TTP Thoracic spine Muscle bulk / tone/ strength in the bilateral paraspinal muscles normal Vertebral body tender to palpation over Facet loading test positive TTP Lumbar spine: Motor bulk/ tone/ strength lower extremities , thigh and legs : 5/5 Deep tendon reflexes : Normal Knee Jerk. Normal Ankle Jerk . Vertebral body tenderness to palpation over L L4, L5 Lumbar Facet Loading Test Straight Leg Raise: positive at 30 degrees right side/ left side Gaenslen's Test positive Sacral spine : Severe tenderness over the Sacroiliac joint: right side / left side Range of motion: Flexion of the lumbar spine <60 degrees Range of motion: Extension of the lumbar spine <20 degrees Gaenslen's Test positive right side / left side Sirisha test: positive right side / left side Thigh Thrust Test positive right side / left side Sacral Thrust Test positive right side / left side Assessment and plan: Chronic LBP secondary to lumbar DDD, spondylosis with facet arthropathy without myelopathy Recommendation of SCS trial. Video viewed and script for behavioral health visit provided re: M54.16, G89.4. Risks, benefits of procedure discussed and pt verbalized understanding. All questions answered. Chronic and current use of high-risk medication (Opioids). The patient was counseled about risk of opioid use, psychological risk associated with opioids and was orally counseled to not overuse , divert or sell medications. Pt is to store medication in a safe location. The patient is counseled against driving while using narcotic medications and also not to use alcohol or any illicit recreational drugs. Patient verbalized understanding that the lack of compliance will result in failure to renew narcotic prescription(s) as well as possible discharge from the clinic Diagnoses, prognosis and treatment options including but not limited to physical therapy, surgical interventions, interventional therapies and medication management including narcotics and adjuvant medication were discussed. All patient questions answered MAPS reviewed and it was appropriate. Blood tox screen reviewed 05/22/22 and consistent. Prescription refill for Neurontin 100mg #30 w 1 RF. I have spent less than 30 minutes on patient care today. Dr Dodd was available by phone for the evaluation of this patient. The time was used to review the medical records including relevant urine studies and Prescription history (MAPs), review of the available imaging, evaluation and examination of the patient, coordination of care with the medical staff and if applicable referring physicians, as well as creation of the medical record PQRS Narrative: Narcotic Agreement Date Signed 09/12/21 Hx Alcohol Use (MH) No Home Medications: Ambulatory Orders Nitroglycerin Sl Tabs [Nitrostat] 0.4 mg SUBLINGUAL Q5M PRN #7 tab 06/18/20 Aspirin 81 mg PO DAILY 09/21/20 Atorvastatin [Lipitor] 40 mg PO HS 09/21/20 Famotidine 20 mg PO DAILY 09/21/20 Losartan [Cozaar] 25 mg PO HS 09/21/20 Metoprolol Tartrate [Lopressor] 25 mg PO W/SUPPER 09/21/20 Psyllium Husk (with Sugar) [Metamucil Powder] 1 dose PO BID 09/21/20 Tamsulosin HCl [Flomax] 0.8 mg PO HS 09/21/20 Vit C/E/Zn/Coppr/Lutein/Zeaxan [Preservision Areds 2 Softgel] 1 cap PO BID 09/21/20 traMADol HCL [Ultram] 50 mg PO Q8H PRN 06/14/21 Furosemide [Lasix] 20 mg PO DAILY 10/13/21 Metoprolol Tartrate 50 mg PO QAM 10/13/21 Spironolactone [Aldactone] 12.5 mg PO DAILY@1200 10/13/21 Acetaminophen [Tylenol Arthritis] 1,300 mg PO BID PRN 02/09/22 Diclofenac Sodium Gel [Voltaren Gel] 2 gm TOPICAL QID 05/03/22 Gabapentin [Neurontin] 100 mg PO HS 30 Days #30 cap 05/22/22 Controlled Substance Measures - Controlled Substance Measures Is patient prescribed a controlled substance at discharge?: No
== END ==
LOC: PNWHC3 10:24
PROVIDERS: ATTEND Specialist
DX: M51.16 Intervertebral disc disorders with radiculopathy, lumbar region (principal); M47.26 Other spondylosis with radiculopathy, lumbar region; G89.4 Chronic pain syndrome; Z79.891 Long term (current) use of opiate analgesic; Z91.048 Other nonmedicinal substance allergy status; Z79.82 Long term (current) use of aspirin
CPT/HCPCS: 99211

== ENCOUNTER → 2022-08-08 | Outpatient (CLI) | payer MEDICARE | LOC: CPPFTMAIN 13:50 | PROVIDERS: ATTEND Internal Medicine | DX: I50.22 Chronic systolic (congestive) heart failure (principal); Z91.048 Other nonmedicinal substance allergy status | CPT/HCPCS: 94060; 94726; 94729 ==

== ENCOUNTER → 2022-09-11 | Outpatient (CLI) | payer MEDICARE ==
[2022-09-11 14:10] VITALS: BP 84/50; PULSE 55; RESP 16
--- NOTE | 2022-09-11 14:43 | P.PAINPG ---
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 Behavioral health clearance pending Pain level is provoked at 6/10 in intensity, constant, localized in the lumbar spine, sharp in character w shooting towards the LLE w L foot numbness. Pain is provoked by walking/ standing for periods of 30 min or more. Pain is alleviated with PT x 4 wks in June 2022, acupuncture treatments, massage therapy in 2020, heat, occasional ice, medications, topical, reclining, use of a cane for ambulatory assistance, laying on his side, repositioning and rest. Interventional pain procedures completed include BL MBB L1-L3 x1, Lumbar TPIs, Caudal w Lysis, L TFESI L6-S1 Patient is currently on Neurontin 100mg #30, Ibu, Voltaren gel Patient denies any side effects of the medication(s), denies excessive drowsiness or sleepiness, denies suicidal ideation and reports that the current pain medication is helping to control the pain and improve activities of daily living. Patient denies any motor or sensory deficits. Patient denies any fever or night sweats, denies any change in the bowel movements or urination. Physical Examination: -Constitutional: Cooperative. Not in acute distress . - Neurologic: Cranial nerve II to XII intact. No focal neurological deficits. - Psychatric: Alert & oriented x 3. Matching mood & appropriate affect. Judgment and insight intact. - Musculoskeletal: Cervical spine: Muscle bulk/ tone/ strength in the bilateral upper extremities normal Vertebral body tenderness to palpation over Spurling test positive Distraction test positive Facet loading test positive TTP Thoracic spine Muscle bulk / tone/ strength in the bilateral paraspinal muscles normal Vertebral body tender to palpation over Facet loading test positive TTP Lumbar spine: Motor bulk/ tone/ strength lower extremities , thigh and legs : 5/5 Deep tendon reflexes : Normal Knee Jerk. Normal Ankle Jerk . Vertebral body tenderness to palpation over L L4, L5 Lumbar Facet Loading Test Straight Leg Raise: positive at 30 degrees right side/ left side Gaenslen's Test positive Sacral spine : Severe tenderness over the Sacroiliac joint: right side / left side Range of motion: Flexion of the lumbar spine <60 degrees Range of motion: Extension of the lumbar spine <20 degrees Gaenslen's Test positive right side / left side Sirisha test: positive right side / left side Thigh Thrust Test positive right side / left side Sacral Thrust Test positive right side / left side Assessment and plan: Chronic LBP secondary to lumbar DDD, spondylosis with facet arthropathy without myelopathy Recommendation of SCS trial. Behavioral health clearance provided re: M54.16, G89.4. Risks, benefits of procedure discussed and pt verbalized understanding. All questions answered. Chronic and current use of high-risk medication (Opioids). The patient was counseled about risk of opioid use, psychological risk associated with opioids and was orally counseled to not overuse , divert or sell medications. Pt is to store medication in a safe location. The patient is counseled against driving while using narcotic medications and also not to use alcohol or any illicit recreational drugs. Patient verbalized understanding that the lack of compliance will result in failure to renew narcotic prescription(s) as well as possible discharge from the clinic Diagnoses, prognosis and treatment options including but not limited to physical therapy, surgical interventions, interventional therapies and medication management including narcotics and adjuvant medication were discussed. All patient questions answered MAPS reviewed and it was appropriate. Blood tox screen reviewed 05/22/22 and consistent. Prescription refill for Neurontin 200mg #30 w 1 RF. I have spent less than 30 minutes on patient care today. Dr Dodd was available by phone for the evaluation of this patient. The time was used to review the medical records including relevant urine studies and Prescription history (MAPs), review of the available imaging, evaluation and examination of the patient, coordination of care with the medical staff and if applicable referring physicians, as well as creation of the medical record PQRS Narrative: Narcotic Agreement Date Signed 09/12/21 Hx Alcohol Use (MH) No Home Medications: Ambulatory Orders Nitroglycerin Sl Tabs [Nitrostat] 0.4 mg SUBLINGUAL Q5M PRN #7 tab 06/18/20 Aspirin 81 mg PO DAILY 09/21/20 Atorvastatin [Lipitor] 40 mg PO HS 09/21/20 Famotidine 20 mg PO DAILY 09/21/20 Losartan [Cozaar] 25 mg PO HS 09/21/20 Metoprolol Tartrate [Lopressor] 25 mg PO W/SUPPER 09/21/20 Psyllium Husk (with Sugar) [Metamucil Powder] 1 dose PO BID 09/21/20 Tamsulosin HCl [Flomax] 0.8 mg PO HS 09/21/20 Vit C/E/Zn/Coppr/Lutein/Zeaxan [Preservision Areds 2 Softgel] 1 cap PO BID 09/21/20 traMADol HCL [Ultram] 50 mg PO Q8H PRN 06/14/21 Furosemide [Lasix] 20 mg PO DAILY 10/13/21 Metoprolol Tartrate 50 mg PO QAM 10/13/21 Spironolactone [Aldactone] 12.5 mg PO DAILY@1200 10/13/21 Acetaminophen [Tylenol Arthritis] 1,300 mg PO BID PRN 02/09/22 Diclofenac Sodium Gel [Voltaren Gel] 2 gm TOPICAL QID 05/03/22 Gabapentin [Neurontin] 200 mg PO HS 30 Days #30 cap 09/11/22 Controlled Substance Measures - Controlled Substance Measures Is patient prescribed a controlled substance at discharge?: Yes When asked, does pt state using other controlled substances?: No If prescribed controlled substance>3 days was MAPS reviewed?: Yes
== END ==
LOC: PNWHC3 12:58
PROVIDERS: ATTEND Specialist
DX: M51.36 Other intervertebral disc degeneration, lumbar region (principal); M47.816 Spondylosis without myelopathy or radiculopathy, lumbar region; G89.29 Other chronic pain; Z79.891 Long term (current) use of opiate analgesic; Z79.82 Long term (current) use of aspirin; Z91.048 Other nonmedicinal substance allergy status
CPT/HCPCS: 99211

== ENCOUNTER → 2022-11-30 | Outpatient (CLI) | payer MEDICARE ==
[2022-11-30 15:16] LABS: ALT 32 U/L (4-49); AST 49 U/L (17-59); African American GFR (CKD) >90 (>60 ml/min/1.73 sqM); Albumin 4.5 g/dL (3.5-5.0); Albumin/Globulin Ratio 1.4; Alkaline Phosphatase 124 U/L (38-126); Anion Gap 9 mmol/L; Blood Urea Nitrogen 13 mg/dL (9-20); Calcium 9.2 mg/dL (8.4-10.2); Carbon Dioxide 21 mmol/L (22-30); Chloride 104 mmol/L (98-107); Globulin 3.3 g/dL; Glucose 104 mg/dL (74-99); Non-African American GFR(CKD) 90 (>60 ml/min/1.73 sqM); Sodium 134 mmol/L (137-145); Total Bilirubin 1.4 mg/dL (0.2-1.3); Total Protein 7.8 g/dL (6.3-8.2)
[2022-11-30 15:32] LABS: Potassium 5.3 mmol/L (3.5-5.1)
[2022-11-30 16:31] LABS: HCT 46.6 % (39.0-53.0); HGB 15.5 gm/dL (13.0-17.5); MCH 33.1 pg (25.0-35.0); MCHC 33.3 g/dL (31.0-37.0); MCV 99.4 fL (80.0-100.0); Platelet Count 164 k/uL (150-450); RBC 4.68 m/uL (4.30-5.90); RDW 12.9 % (11.5-15.5); WBC 4.6 k/uL (3.8-10.6)
[2022-11-30 16:50] LABS: Magnesium 2.2 mg/dL (1.6-2.3)
--- NOTE | 2022-12-01 09:16 | CT ---
EXAMINATION TYPE: CT abdomen pelvis w con CT DLP: 1797.6 mGycm, Automated exposure control for dose reduction was used. DATE OF EXAM: 11/30/2022 4:10 PM COMPARISON: CT abdomen pelvis most recent from 06/08/2022 CLINICAL INDICATION:Male, 77 years old with history of R1083; DX renal colic. TECHNIQUE: Axial CT of the abdomen and pelvis. Sagittal and coronal reformats were created on a [employer] workstation. Contrast used:100cc mL of Isovue 300 with IV Contrast, (none if empty) Oral contrast used: without Oral Contrast (none if empty) FINDINGS: LOWER CHEST: Heart is mildly enlarged for size. Coronary stent graft and left anterior descending cor onary artery. ABDOMEN LIVER: Unremarkable GALLBLADDER AND BILE DUCTS: Unremarkable. PANCREAS: Unremarkable. SPLEEN: Unremarkable. ADRENAL GLANDS: Unremarkable. KIDNEYS AND URETERS: No evidence of hydronephrosis or renal calculus. The ureters are unremarkable. PELVIS BLADDER: No bladder stones. No wall thickening. REPRODUCTIVE: Unremarkable. ABDOMEN & PELVIS STOMACH AND BOWEL: No evidence of bowel obstruction. The appendix is normal. Scattered colonic divert icula are present. PERITONEUM/RETROPERITONEUM: No evidence of pneumoperitoneum or free fluid. VASCULATURE: Mild atherosclerotic calcifications are present throughout the abdominal aorta and its b ranches. Aneurysmal dilation up to 3.1 cm. MUSCULOSKELETAL: No acute osseous abnormalities. Severe disc degeneration changes are present through out the thoracolumbar spine. There is multilevel neural foraminal and spinal canal stenosis with stra ightening of the spine. There is some mild scoliosis changes of the spine. LYMPH NODES: No gross evidence for lymphadenopathy. SOFT TISSUE/ABDOMINAL WALL: Fat-containing umbilical hernia. IMPRESSION: 1. No evidence for obstructive uropathy or renal contrast. 2. Colonic diverticulosis. 3. Hepatic steatosis. 4. Moderate cardiomegaly. 5. Infrarenal fusiform aortic aneurysm measuring up to 3.1 cm. 6. Large severe degeneration changes of the spine with scoliosis.
== END | disposition home or self-care (01) ==
LOC: RADCTMAIN 14:12
PROVIDERS: ATTEND Internal Medicine
DX: K57.30 Diverticulosis of large intestine without perforation or abscess without bleeding (principal); K76.0 Fatty (change of) liver, not elsewhere classified; I51.7 Cardiomegaly; R10.813 Right lower quadrant abdominal tenderness; I71.43 Infrarenal abdominal aortic aneurysm, without rupture; M41.86 Other forms of scoliosis, lumbar region
CPT/HCPCS: 80053; 83690; 83735; 85027; 83036; 74177; 36415; Q9967

== ENCOUNTER → 2022-11-30 | Outpatient (CLI) | payer MEDICARE | END | disposition home or self-care (01) | LOC: LABWHC1 13:02 | PROVIDERS: ATTEND Internal Medicine | DX: Z53.9 Procedure and treatment not carried out, unspecified reason (principal) ==

== ENCOUNTER → 2022-12-01 | Outpatient (CLI) | payer MEDICARE | END | disposition home or self-care (01) | LOC: LABWHC1 14:40 | PROVIDERS: ATTEND Internal Medicine | DX: Z00.00 Encounter for general adult medical examination without abnormal findings (principal); R19.7 Diarrhea, unspecified | CPT/HCPCS: 36415 ==

== ENCOUNTER → 2023-01-01 | Outpatient (CLI) | payer MEDICARE ==
--- NOTE | 2023-01-01 13:23 | P.PAINPG ---
PQRS Measure Charge Sheet Comment: A 77 yr old male w at side with a history of severe and chronic LBP x 1 yr secondary to lumbar DDD and spondylosis with facet arthropathy without myelopathy presents today for medication refills. Pain level is provoked at 4/10 in intensity, constant, localized in the lumbar spine, sharp in character w shooting towards the LLE w L foot numbness. Pain is provoked by walking/ standing for periods of 30 min or more. Pain is alleviated with PT x 4 wks in June 2022, acupuncture treatments, massage therapy in 2020, heat, occasional ice, medications, topical, reclining, use of a cane for ambulatory assistance, laying on his side, repositioning and rest. Interventional pain procedures completed include BL MBB L1-L3 x1, Lumbar TPIs, Caudal w Lysis, L TFESI L6-S1 Patient is currently on Neurontin 100mg #30, Ibu, Voltaren gel Patient denies any side effects of the medication(s), denies excessive drows iness or sleepiness, denies suicidal ideation and reports that the current pain medication is helping to control the pain and improve activities of daily living. Patient denies any motor or sensory deficits. Patient denies any fever or night sweats, denies any change in the bowel movements or urination. Physical Examination: -Constitutional: Cooperative. Not in acute distress . - Neurologic: Cranial nerve II to XII intact. No focal neurological deficits. - Psychatric: Alert & oriented x 3. Matching mood & appropriate affect. Judgment and insight intact. - Musculoskeletal: Cervical spine: Muscle bulk/ tone/ strength in the bilateral upper extremities normal Vertebral body tenderness to palpation over Spurling test positive Distraction test positive Facet loading test positive TTP Thoracic spine Muscle bulk / tone/ strength in the bilateral paraspinal muscles normal Vertebral body tender to palpation over Facet loading test positive TTP Lumbar spine: Motor bulk/ tone/ strength lower extremities , thigh and legs : 5/5 Deep tendon reflexes : Normal Knee Jerk. Normal Ankle Jerk . Vertebral body tenderness to palpation over L L4, L5 Lumbar Facet Loading Test Straight Leg Raise: positive at 30 degrees right side/ left side Gaenslen's Test positive Sacral spine : Severe tenderness over the Sacroiliac joint: right side / left side Range of motion: Flexion of the lumbar spine <60 degrees Range of motion: Extension of the lumbar spine <20 degrees Gaenslen's Test positive right side / left side Sirisha test: positive right side / left side Thigh Thrust Test positive right side / left side Sacral Thrust Test positive right side / left side Assessment and plan: Chronic LBP secondary to lumbar DDD, spondylosis with facet arthropathy without myelopathy Recommendation of SCS trial. Behavioral health clearance provided re: M54.16, G89.4. Would follow up w Dr Villafana at [facility]. Risks, benefits of procedure discussed and pt verbalized understanding. All questions answered. Chronic and current use of high-risk medication (Opioids). The patient was counseled about risk of opioid use, psychological risk associated with opioids and was orally counseled to not overuse , divert or sell medications. Pt is to store medication in a safe location. The patient is counseled against driving while using narcotic medications and also not to use alcohol or any illicit recreational drugs. Patient verbalized understanding that the lack of compliance will result in failure to renew narcotic prescription(s) as well as possible discharge from the clinic Diagnoses, prognosis and treatment options including but not limited to physical therapy, surgical interventions, interventional therapies and medication management including narcotics and adjuvant medication were discussed. All patient questions answered . Narcotic agreement up dated 11/06/22. MAPS reviewed and it was appropriate. Blood tox screen reviewed 05/22/22 and consistent. Prescription refill for Neurontin 300mg #30 w 1 RF. Voltaren gel w 1 RF. I have spent less than 30 minutes on patient care today. Dr Dodd was available by phone for the evaluation of this patient. The time was used to review the medical records including relevant urine studies and Prescription history (MAPs), review of the available imaging, evaluation and examination of the patient, coordination of care with the medical staff and if applicable referring physicians, as well as creation of the medical record PQRS Narrative: Narcotic Agreement Date Signed 11/06/22 Hx Alcohol Use (MH) No Home Medications: Ambulatory Orders Nitroglycerin Sl Tabs [Nitrostat] 0.4 mg SUBLINGUAL Q5M PRN #7 tab 06/18/20 Aspirin 81 mg PO DAILY 09/21/20 Atorvastatin [Lipitor] 40 mg PO HS 09/21/20 Famotidine 20 mg PO DAILY 09/21/20 Losartan [Cozaar] 25 mg PO HS 09/21/20 Metoprolol Tartrate [Lopressor] 25 mg PO W/SUPPER 09/21/20 Psyllium Husk (with Sugar) [Metamucil Powder] 1 dose PO BID 09/21/20 Tamsulosin HCl [Flomax] 0.8 mg PO HS 09/21/20 Vit C/E/Zn/Coppr/Lutein/Zeaxan [Preservision Areds 2 Softgel] 1 cap PO BID 09/21/20 traMADol HCL [Ultram] 50 mg PO Q8H PRN 06/14/21 Furosemide [Lasix] 20 mg PO DAILY 10/13/21 Metoprolol Tartrate 50 mg PO QAM 10/13/21 Spironolactone [Aldactone] 12.5 mg PO DAILY@1200 10/13/21 Acetaminophen [Tylenol Arthritis] 1,300 mg PO BID PRN 02/09/22 Diclofenac Sodium Gel [Voltaren 1% Gel] 2 gm TOPICAL QID 30 Days #1 each 11/06/22 Gabapentin [Neurontin] 200 mg PO HS 30 Days #60 cap 01/01/23 Controlled Substance Measures - Controlled Substance Measures Is patient prescribed a controlled substance at discharge?: Yes When asked, does pt state using other controlled substances?: No If prescribed controlled substance>3 days was MAPS reviewed?: Yes
[2023-01-01 13:57] VITALS: BP 112/68; PULSE 76; RESP 15; TEMP 98.7
== END ==
LOC: PNWHC3 13:02
PROVIDERS: ATTEND Specialist
DX: G89.4 Chronic pain syndrome (principal); M51.16 Intervertebral disc disorders with radiculopathy, lumbar region; M47.26 Other spondylosis with radiculopathy, lumbar region; Z79.891 Long term (current) use of opiate analgesic; Z79.82 Long term (current) use of aspirin; Z91.048 Other nonmedicinal substance allergy status
CPT/HCPCS: 99211

== ENCOUNTER → 2023-03-05 | Outpatient (CLI) | payer MEDICARE ==
[2023-03-05 13:27] VITALS: BP 91/65; PULSE 64; RESP 16
--- NOTE | 2023-03-05 15:03 | P.PAINPG ---
PQRS Measure Charge Sheet Comment: A 77 yr old male w at side with a history of severe and chronic LBP x 1 yr secondary to lumbar DDD and spondylosis with facet arthropathy without myelopathy presents today for medication refills. Pain level is provoked at 9/10 in intensity, constant, localized in the lumbar spine, sharp in character w shooting towards the back of the LLE. Pain is provoked by walking/ standing for periods of 30 min or more. Pain is alleviated with PT x 4 wks in June 2022, acupuncture treatments, massage therapy in 2020, heat, occasional ice, medications, topical, reclining, use of a cane for ambulatory assistance, laying on his side, repositioning and rest. SCS trial was ineffective due to excess scar tissue present. Interventional pain procedures completed include BL MBB L1-L3 x1, Lumbar TPIs, Caudal w Lysis, L TFESI L6-S1 Patient is currently on Neurontin 100mg #30, Ibu, Voltaren gel Patient denies any side effects of the medication(s), denies excessive drowsiness or sleepiness, denies suicidal ideation and reports that the current pain medication is helping to control the pain and improve activities of daily living. Patient denies any motor or sensory deficits. Patient denies any fever or night sweats, denies any change in the bowel movements or urination. Physical Examination: -Constitutional: Cooperative. Not in acute distress . - Neurologic: Cranial nerve II to XII intact. No focal neurological deficits. - Psychatric: Alert & oriented x 3. Matching mood & appropriate affect. Judgment and insight intact. - Musculoskeletal: Cervical spine: Muscle bulk/ tone/ strength in the bilateral upper extremities normal Vertebral body tenderness to palpation over Spurling test positive Distraction test positive Facet loading test positive TTP Thoracic spine Muscle bulk / tone/ strength in the bilateral paraspinal muscles normal Vertebral body tender to palpation over Facet loading test positive TTP Lumbar spine: Motor bulk/ tone/ strength lower extremities , thigh and legs : 5/5 Deep tendon reflexes : Normal Knee Jerk. Normal Ankle Jerk . Vertebral body tenderness to palpation over L L4, L5 Lumbar Facet Loading Test Straight Leg Raise: positive at 30 degrees right side/ left side Gaenslen's Test positive Sacral spine : Severe tenderness over the Sacroiliac joint: right side / left side Range of motion: Flexion of the lumbar spine <60 degrees Range of motion: Extension of the lumbar spine <20 degrees Gaenslen's Test positive right side / left side Sirisha test: positive right side / left side Thigh Thrust Test positive right side / left side Sacral Thrust Test positive right side / left side Assessment and plan: Chronic LBP secondary to lumbar DDD, spondylosis with facet arthropathy without myelopathy Recommendation of PT x 6 wks integrated w therapeutic massage and acupuncture M51.36 . All questions answered. Chronic and current use of high-risk medication (Opioids). The patient was counseled about risk of opioid use, psychological risk associated with opioids and was orally counseled to not overuse , divert or sell medications. Pt is to store medication in a safe location. The patient is counseled against driving while using narcotic medications and also not to use alcohol or any illicit recreational drugs. Patient verbalized understanding that the lack of compliance will result in failure to renew narcotic prescription(s) as well as possible discharge from the clinic Diagnoses, prognosis and treatment options including but not limited to physical therapy, surgical interventions, interventional therapies and medication management including narcotics and adjuvant medication were discussed. All patient questions answered . Narcotic agreement up dated 11/06/22. MAPS reviewed and it was appropriate. Blood tox screen reviewed 05/22/22 and consistent. Prescription refill for Neurontin 100mg #90 w 1 RF. I have spent less than 30 minutes on patient care today. Dr Dodd was available by phone for the evaluation of this patient. The time was used to review the medical records including relevant urine studies and Prescription history (MAPs), review of the available imaging, evaluation and examination of the patient, coordination of care with the medical staff and if applicable referring physicians, as well as creation of the medical record PQRS Narrative: Narcotic Agreement Date Signed 11/06/22 Hx Alcohol Use (MH) No Home Medications: Ambulatory Orders Nitroglycerin Sl Tabs [Nitrostat] 0.4 mg SUBLINGUAL Q5M PRN #7 tab 06/18/20 Aspirin 81 mg PO DAILY 09/21/20 Atorvastatin [Lipitor] 40 mg PO HS 09/21/20 Famotidine 20 mg PO DAILY 09/21/20 Losartan [Cozaar] 25 mg PO HS 09/21/20 Metoprolol Tartrate [Lopressor] 25 mg PO W/SUPPER 09/21/20 Psyllium Husk (with Sugar) [Metamucil Powder] 1 dose PO BID 09/21/20 Tamsulosin HCl [Flomax] 0.8 mg PO HS 09/21/20 Vit C/E/Zn/Coppr/Lutein/Zeaxan [Preservision Areds 2 Softgel] 1 cap PO BID 09/21/20 traMADol HCL [Ultram] 50 mg PO Q8H PRN 06/14/21 Furosemide [Lasix] 20 mg PO DAILY 10/13/21 Metoprolol Tartrate 50 mg PO QAM 10/13/21 Spironolactone [Aldactone] 12.5 mg PO DAILY@1200 10/13/21 Acetaminophen [Tylenol Arthritis] 1,300 mg PO BID PRN 02/09/22 Diclofenac Sodium Gel [Voltaren 1% Gel] 2 gm TOPICAL QID 30 Days #1 each 11/06/22 Gabapentin [Neurontin] 100 mg PO HS 30 Days #90 cap 03/05/23 Controlled Substance Measures - Controlled Substance Measures Is patient prescribed a controlled substance at discharge?: Yes When asked, does pt state using other controlled substances?: No If prescribed controlled substance>3 days was MAPS reviewed?: Yes
== END ==
LOC: PNWHC3 12:47
PROVIDERS: ATTEND Specialist
DX: M51.36 Other intervertebral disc degeneration, lumbar region (principal); M47.816 Spondylosis without myelopathy or radiculopathy, lumbar region; G89.29 Other chronic pain; Z79.891 Long term (current) use of opiate analgesic; Z79.82 Long term (current) use of aspirin; Z91.048 Other nonmedicinal substance allergy status
CPT/HCPCS: 99211

== ENCOUNTER → 2023-04-30 | Outpatient (CLI) | payer MEDICARE ==
[2023-04-30 14:02] VITALS: BP 128/68; PULSE 67; RESP 15; TEMP 98.5
--- NOTE | 2023-04-30 15:02 | P.PAINPG ---
PQRS Measure Charge Sheet Comment: A 77 yr old male w at side with a history of severe and chronic LBP x 1 yr secondary to lumbar DDD and spondylosis with facet arthropathy without myelopathy presents today for medication refills. Pain level is provoked at 9/10 in intensity, constant, localized in the lumbar spine, sharp in character w shooting towards the back of the LLE. Pain is provoked by walking/ standing for periods of 30 min or more. Pain is alleviated with PT x 4 wks in June 2022, acupuncture treatments, massage therapy in 2020, heat, occasional ice, medications, topical, reclining, use of a cane for ambulatory assistance, laying on his side, repositioning and rest. SCS trial was ineffective due to excess scar tissue present. Interventional pain procedures completed include BL MBB L1-L3 x1, Lumbar TPIs, Caudal w Lysis, L TFESI L6-S1 Patient is currently on Neurontin 100mg #30, Ibu, Voltaren gel Patient denies any side effects of the medication(s), denies excessive drowsiness or sleepiness, denies suicidal ideation and reports that the current pain medication is helping to control the pain and improve activities of daily living. Patient denies any motor or sensory deficits. Patient denies any fever or night sweats, denies any change in the bowel movements or urination. Physical Examination: -Constitutional: Cooperative. Not in acute distress . - Neurologic: Cranial nerve II to XII intact. No focal neurological deficits. - Psychatric: Alert & oriented x 3. Matching mood & appropriate affect. Judgment and insight intact. - Musculoskeletal: Cervical spine: Muscle bulk/ tone/ strength in the bilateral upper extremities normal Vertebral body tenderness to palpation over Spurling test positive Distraction test positive Facet loading test positive TTP Thoracic spine Muscle bulk / tone/ strength in the bilateral paraspinal muscles normal Vertebral body tender to palpation over Facet loading test positive TTP Lumbar spine: Motor bulk/ tone/ strength lower extremities , thigh and legs : 5/5 Deep tendon reflexes : Normal Knee Jerk. Normal Ankle Jerk . Vertebral body tenderness to palpation over L L4, L5 Lumbar Facet Loading Test Straight Leg Raise: positive at 30 degrees right side/ left side Gaenslen's Test positive Sacral spine : Severe tenderness over the Sacroiliac joint: right side / left side Range of motion: Flexion of the lumbar spine <60 degrees Range of motion: Extension of the lumbar spine <20 degrees Gaenslen's Test positive right side / left side Sirisha test: positive right side / left side Thigh Thrust Test positive right side / left side Sacral Thrust Test positive right side / left side Assessment and plan: Chronic LBP secondary to lumbar DDD, spondylosis with facet arthropathy without myelopathy Recommendation of PT x 6 wks integrated w therapeutic massage and acupuncture M51.36 . All questions answered. Chronic and current use of high-risk medication (Opioids). The patient was counseled about risk of opioid use, psychological risk associated with opioids and was orally counseled to not overuse , divert or sell medications. Pt is to store medication in a safe location. The patient is counseled against driving while using narcotic medications and also not to use alcohol or any illicit recreational drugs. Patient verbalized understanding that the lack of compliance will result in failure to renew narcotic prescription(s) as well as possible discharge from the clinic Diagnoses, prognosis and treatment options including but not limited to physical therapy, surgical interventions, interventional therapies and medication management including narcotics and adjuvant medication were discussed. All patient questions answered . Narcotic agreement up dated 11/06/22. MAPS reviewed and it was appropriate. UDS collected 04/30/23. Prescription refill for Neurontin 100mg #90 w 1 RF. I have spent less than 30 minutes on patient care today. Dr Dodd was available by phone for the evaluation of this patient. The time was used to review the medical records including relevant urine studies and Prescription history (MAPs), review of the available imaging, evaluation and examination of the patient, coordination of care with the medical staff and if applicable referring physicians, as well as creation of the medical record PQRS Narrative: Narcotic Agreement Date Signed 11/06/22 Hx Alcohol Use (MH) No Home Medications: Ambulatory Orders Nitroglycerin Sl Tabs [Nitrostat] 0.4 mg SUBLINGUAL Q5M PRN #7 tab 06/18/20 Aspirin 81 mg PO DAILY 09/21/20 Atorvastatin [Lipitor] 40 mg PO HS 09/21/20 Famotidine 20 mg PO DAILY 09/21/20 Losartan [Cozaar] 25 mg PO HS 09/21/20 Metoprolol Tartrate [Lopressor] 25 mg PO W/SUPPER 09/21/20 Psyllium Husk (with Sugar) [Metamucil Powder] 1 dose PO BID 09/21/20 Tamsulosin HCl [Flomax] 0.8 mg PO HS 09/21/20 Vit C/E/Zn/Coppr/Lutein/Zeaxan [Preservision Areds 2 Softgel] 1 cap PO BID 09/21/20 traMADol HCL [Ultram] 50 mg PO Q8H PRN 06/14/21 Furosemide [Lasix] 20 mg PO DAILY 10/13/21 Metoprolol Tartrate 50 mg PO QAM 10/13/21 Spironolactone [Aldactone] 12.5 mg PO DAILY@1200 10/13/21 Acetaminophen [Tylenol Arthritis] 1,300 mg PO BID PRN 02/09/22 Diclofenac Sodium Gel [Voltaren 1% Gel] 2 gm TOPICAL QID 30 Days #1 each 03/05/23 Gabapentin [Neurontin] 100 mg PO HS 30 Days #90 cap 04/30/23 Ibuprofen 600 mg PO Q8H PRN 30 Days #90 tab 04/30/23 Controlled Substance Measures - Controlled Substance Measures Is patient prescribed a controlled substance at discharge?: Yes When asked, does pt state using other controlled substances?: No If prescribed controlled substance>3 days was MAPS reviewed?: Yes
== END ==
LOC: PNWHC3 13:01
PROVIDERS: ATTEND Specialist
DX: M51.36 Other intervertebral disc degeneration, lumbar region (principal); M47.816 Spondylosis without myelopathy or radiculopathy, lumbar region; M19.011 Primary osteoarthritis, right shoulder; M19.012 Primary osteoarthritis, left shoulder; G89.29 Other chronic pain; Z79.891 Long term (current) use of opiate analgesic; Z91.048 Other nonmedicinal substance allergy status; Z79.82 Long term (current) use of aspirin
CPT/HCPCS: 80307; G0463; 99212

== ENCOUNTER → 2023-04-30 | Outpatient (CLI) | payer MEDICARE ==
--- NOTE | 2023-04-30 14:40 | XR ---
EXAMINATION TYPE: XR shoulder complete BILAT DATE OF EXAM: 04/30/2023 COMPARISON: NONE 09/21/2020 HISTORY: Pain TECHNIQUE: Three views bilateral shoulders are submitted. FINDINGS: Right shoulder: Hypertrophic arthropathy of the AC joint with sizable spur of the acromion. Mild wide moon of the AC joint. Mild glenohumeral joint arthropathy. Diffuse osteopenia with spurring along the lower margin of the h umeral head and cystic change involving the humeral head likely on the basis of chronic impingement. Visualized lung casas are clear. No acute fracture or dislocation. Left shoulder: Post rotator cuff repair surgery seen. Severe glenohumeral joint arthropathy. There is left shoulder AC joint arthropathy. IMPRESSION: 1. Hypertrophic AC joint arthropathy right shoulder suspicious for impingement. Correlate for rotator cuff disease. 2. Post rotator cuff repair surgery left shoulder. There is severe glenohumeral joint arthropathy of the left shoulder 3. Left shoulder AC joint arthropathy
== END | disposition home or self-care (01) ==
LOC: RADXRMAIN 13:59
PROVIDERS: ATTEND Physician Assistant Medical
DX: M19.011 Primary osteoarthritis, right shoulder (principal); M19.012 Primary osteoarthritis, left shoulder; Z98.890 Other specified postprocedural states

== ENCOUNTER → 2023-05-16 | Outpatient (CLI) | payer MEDICARE ==
--- NOTE | 2023-05-16 11:29 | CT ---
EXAMINATION TYPE: CT shoulder LT wo con, CT shoulder RT wo con DATE OF EXAM: 05/16/2023 COMPARISON: None HISTORY: bilateral shoulder pain, no injury CT DLP: 741.8 (accession [id number]), 797.4 (accession [id number]) mGycm Unenhanced CT of the bilateral shoulders with reconstruction imaging. TECHNIQUE: Unenhanced CT of the right and left shoulders was performed with bone and soft tissue wind ow settings submitted in the axial coronal and sagittal planes. At a separate workstation [id number] TR yanet ging was obtained. FINDINGS: Right shoulder: There is a 1 cm loose body noted underneath the surface of the acromion. There is mod erate right AC joint arthropathy. There is chronic appearing elevation of the right humeral head rela tive to the central glenoid axis with marked subacromial narrowing. The findings are felt to reflect chronic rotator cuff tear. There is a spurring noted of the right humeral head. Mild narrowing glenoh umeral joint space. No acute fracture or dislocation. No osseous lesion seen. Right-sided visualized portions of the lungs are well aerated. Right ribs are intact. No soft tissue mass evident. Left shoulder: There is evidence of prior rotator cuff repair. Severe narrowing glenohumeral joint sp bronson. Well-corticated loose body noted adjacent to the superior posterior glenoid measuring 2.2 x 1.1 cm. Severe humeral head irregularity with subchondral cyst formation and spur formation noted. Mild t o moderate subacromial impingement. Moderate AC joint arthropathy. No acute fracture seen. No bony de structive process. The left lung is clear. Left ribs within normal limits as visualized. IMPRESSION: 1. Bilateral loose bodies. 2. Chronic right-sided rotator cuff tear. 3. Degenerative changes as noted.
== END | disposition home or self-care (01) ==
LOC: RADCTMAIN 10:40
PROVIDERS: ATTEND Specialist
DX: M19.019 Primary osteoarthritis, unspecified shoulder (principal); M75.101 Unspecified rotator cuff tear or rupture of right shoulder, not specified as traumatic; M24.012 Loose body in left shoulder; M24.011 Loose body in right shoulder

== ENCOUNTER → 2023-06-25 | Outpatient (CLI) | payer MEDICARE ==
[2023-06-25 13:30] VITALS: BP 106/70; PULSE 54; RESP 16
--- NOTE | 2023-06-25 14:58 | P.PAINPG ---
PQRS Measure Charge Sheet Comment: A 77 yr old male w at side with a history of severe and chronic BL shoulder pain > 1 yr secondary to BL Shoulder DJD presents today for medication refills. Pain level is provoked at 9/10 in intensity, constant, localized in the lumbar spine, sharp in character w shooting towards the back of the LLE. Pain is provoked by walking/ standing for periods of 30 min or more. Pain is alleviated with PT integrated w massage x 2 wks which he is currently in, acupuncture treatments, massage therapy in 2020, heat, occasional ice, medications, topical, reclining, use of a cane for ambulatory assistance, laying on his side, repositioning and rest. SCS trial was ineffective due to excess scar tissue present. Interventional pain procedures completed include BL MBB L1-L3 x1, Lumbar TPIs, Caudal w Lysis, L TFESI L6-S1 Patient is currently on Neurontin 100mg #30, Ibu, Voltaren gel Patient denies any side effects of the medication(s), denies excessive drowsiness or sleepiness, denies suicidal ideation and reports that the current pain medication is helping to control the pain and improve activities of daily living. Patient denies any motor or sensory deficits. Patient denies any fever or night sweats, denies any change in the bowel movements or urination. Physical Examination: -Constitutional: Cooperative. Not in acute distress . - Neurologic: Cranial nerve II to XII intact. No focal neurological deficits. - Psychatric: Alert & oriented x 3. Matching mood & appropriate affect. Judgment and insight intact. - Musculoskeletal: Cervical spine: +BL AC joint line TTP L> R Muscle bulk/ tone/ strength in the bilateral upper extremities normal Vertebral body tenderness to palpation over Spurling test positive Distraction test positive Facet loading test positive TTP Thoracic spine Muscle bulk / tone/ strength in the bilateral paraspinal muscles normal Vertebral body tender to palpation over Facet loading test positive TTP Lumbar spine: Motor bulk/ tone/ strength lower extremities , thigh and legs : 5/5 Deep tendon reflexes : Normal Knee Jerk. Normal Ankle Jerk . Vertebral body tenderness to palpation Lumbar Facet Loading Test Straight Leg Raise: positive at 30 degrees right side/ left side Gaenslen's Test positive Sacral spine : Severe tenderness over the Sacroiliac joint: right side / left side Range of motion: Flexion of the lumbar spine <60 degrees Range of motion: Extension of the lumbar spine <20 degrees Gaenslen's Test positive right side / left side Sirisha test: positive right side / left side Thigh Thrust Test positive right side / left side Sacral Thrust Test positive right side / left side Imaging: CT non contrast of the BL shoulders from 05/16/23 reviewed Assessment and plan: Chronic BL Shoulder DJD, BL Shoulder Surgeries Recommendation of L shoulder intra articular injection #1. May need a series of injections for optimal pain relief. Risks, benefits of procedure discussed and pt verbalized understanding. Protocol for discontinuation/ continuation of medications georgi procedure discussed Follow up w Orthopedic Surgery for R shoulder Re: Loose bodies and RCT. All questions answered. Chronic and current use of high-risk medication (Opioids). The patient was counseled about risk of opioid use, psychological risk associated with opioids and was orally counseled to not overuse , divert or sell medications. Pt is to store medication in a safe location. The patient is counseled against driving while using narcotic medications and also not to use alcohol or any illicit recreational drugs. Patient verbalized understanding that the lack of compliance will result in failure to renew narcotic prescription(s) as well as possible discharge from the clinic Diagnoses, prognosis and treatment options including but not limited to physical therapy, surgical interventions, interventional therapies and medication management including narcotics and adjuvant medication were discussed. All patient questions answered . Narcotic agreement up dated 11/06/22. MAPS reviewed and it was appropriate. UDS collected 04/30/23. Prescription refill for Neurontin 100mg #90 w 1 RF. I have spent less than 30 minutes on patient care today. Dr Dodd was available by phone for the evaluation of this patient. The time was used to review the medical records including relevant urine studies and Prescription history (MAPs), review of the available imaging, evaluation and examination of the patient, coordination of care with the medical staff and if applicable referring physicians, as well as creation of the medical record - Pain Location Bilateral Lower Back Non-Pharmacological Interventions: Heat, Physical Therapy, Position/Reposition Pharmacological Interventions: PRN Medication, Scheduled Medication, Topical Medication PQRS Narrative: Narcotic Agreement Date Signed 11/06/22 Hx Alcohol Use (MH) No Home Medications: Ambulatory Orders Nitroglycerin Sl Tabs [Nitrostat] 0.4 mg SUBLINGUAL Q5M PRN #7 tab 06/18/20 Aspirin 81 mg PO DAILY 09/21/20 Atorvastatin [Lipitor] 40 mg PO HS 09/21/20 Famotidine 20 mg PO DAILY 09/21/20 Losartan [Cozaar] 25 mg PO HS 09/21/20 Metoprolol Tartrate [Lopressor] 25 mg PO W/SUPPER 09/21/20 Psyllium Husk (with Sugar) [Metamucil Powder] 1 dose PO BID 09/21/20 Tamsulosin HCl [Flomax] 0.8 mg PO HS 09/21/20 Vit C/E/Zn/Coppr/Lutein/Zeaxan [Preservision Areds 2 Softgel] 1 cap PO BID 09/21/20 traMADol HCL [Ultram] 50 mg PO Q8H PRN 06/14/21 Furosemide [Lasix] 20 mg PO DAILY 10/13/21 Metoprolol Tartrate 50 mg PO QAM 10/13/21 Spironolactone [Aldactone] 12.5 mg PO DAILY@1200 10/13/21 Acetaminophen [Tylenol Arthritis] 1,300 mg PO BID PRN 02/09/22 Diclofenac Sodium Gel [Voltaren 1% Gel] 2 gm TOPICAL QID 30 Days #1 each 03/05/23 Ibuprofen 600 mg PO Q8H PRN 30 Days #90 tab 04/30/23 Gabapentin [Neurontin] 100 mg PO HS 30 Days #90 cap 06/25/23 Controlled Substance Measures - Controlled Substance Measures Is patient prescribed a controlled substance at discharge?: No
== END ==
LOC: PNWHC3 12:51
PROVIDERS: ATTEND Specialist
DX: M19.012 Primary osteoarthritis, left shoulder (principal); M19.011 Primary osteoarthritis, right shoulder; G89.29 Other chronic pain; Z79.891 Long term (current) use of opiate analgesic; Z98.890 Other specified postprocedural states; Z91.048 Other nonmedicinal substance allergy status
CPT/HCPCS: 99211

== ENCOUNTER → 2023-09-17 | Outpatient (CLI) | payer MEDICARE | LOC: PNWHC3 13:00 | PROVIDERS: ATTEND Specialist | DX: M51.36 Other intervertebral disc degeneration, lumbar region (principal); M54.50 Low back pain, unspecified; Z91.048 Other nonmedicinal substance allergy status | CPT/HCPCS: 99211 ==

== ENCOUNTER → 2023-12-10 | Outpatient (CLI) | payer MEDICARE ==
[2023-12-10 14:03] VITALS: BP 88/57; PULSE 64; RESP 17; TEMP 97.5
--- NOTE | 2023-12-12 07:59 | P.PAINPG ---
Objective - Vital Signs Vital signs: Vital Signs Temp 97.5 F L 12/10/23 14:00 Pulse 64 12/10/23 14:00 Resp 17 12/10/23 14:00 BP 88/57 12/10/23 14:00 Pulse Ox 97 12/10/23 14:00 FiO2 Intake & Output 12/09/23 12/10/23 12/10/23 18:59 06:59 18:59 Weight 225 kg PQRS Measure Charge Sheet Mode of Arrival: Cane Comment: A 78 yr old male w at side with a history of severe and chronic BL shoulder pain > 1 yr secondary to BL Shoulder DJD presents today for medication refills. Pain level is provoked at 8 /10 in intensity, constant, localized in the lumbar spine, sharp in character w shooting towards the L lumbar spine. Pain is provoked by walking/ standing for periods > 30 min. Pain is alleviated with PT integrated w massage x 6 wks in Spring 2023, physician guided stretches daily since Spring 2023, acupuncture treatments, massage therapy in 2020, heat, occasional ice, medications, topical, reclining, use of a cane for ambulatory assistance, laying on his side, repositioning and rest. SCS trial was ineffective due to excess scar tissue present. Interventional pain procedures completed include BL MBB L1-L3 x1, Lumbar TPIs, Caudal w Lysis, L TFESI L6-S1 Patient is currently on Neurontin 100mg #30, Ibu, Voltaren gel Patient denies any side effects of the medication(s), denies excessive drowsiness or sleepiness, denies suicidal ideation and reports that the current pain medication is helping to control the pain and improve activities of daily living. Patient denies any motor or sensory deficits. Patient denies any fever or night sweats, denies any change in the bowel movements or urination. Physical Examination: -Constitutional: Cooperative. Not in acute distress . - Neurologic: Cranial nerve II to XII intact. No focal neurological deficits. - Psychatric: Alert & oriented x 3. Matching mood & appropriate affect. Judgment and insight intact. - Musculoskeletal: Cervical spine: +BL AC joint line TTP L> R Muscle bulk/ tone/ strength in the bilateral upper extremities normal Vertebral body tenderness to palpation over Spurling test positive Distraction test positive Facet loading test positive TTP Thoracic spine Muscle bulk / tone/ strength in the bilateral paraspinal muscles normal Vertebral body tender to palpation over Facet loading test positive TTP Lumbar spine: Motor bulk/ tone/ strength lower extremities , thigh and legs : 5/5 Deep tendon reflexes : Normal Knee Jerk. Normal Ankle Jerk . Vertebral body tenderness to palpation L5 Ellis test positive L L4-L5/ L5-S1 Lumbar Facet Loading Test Straight Leg Raise: positive at 30 degrees right side/ left side Gaenslen's Test positive Sacral spine : Severe tenderness over the Sacroiliac joint: right side / left side Range of motion: Flexion of the lumbar spine <60 degrees Range of motion: Extension of the lumbar spine <20 degrees Gaenslen's Test positive right side / left side Sirisha test: positive right side / left side Thigh Thrust Test positive right side / left side Sacral Thrust Test positive right side / left side Imaging: CT non contrast of the BL shoulders from 05/16/23 reviewed Assessment and plan: Chronic BL Shoulder DJD, BL Shoulder Surgeries, Lumbar radiculopathy Recommendation of L TFESI L4-L5/ L5-S1 #1. Risks, benefits of procedure discussed and pt verbalized understanding. Protocol for discontinuation/ continuation of medications georgi procedure discussed. All questions answered . I have spent less than 30 minutes on patient care today. Dr Dodd was available by phone for the evaluation of this patient. The time was used to review the medical records including relevant urine studies and Prescription history (MAPs), review of the available imaging, evaluation and examination of the patient, coordination of care with the medical staff and if applicable referring physicians, as well as creation of the medical record - Pain Location Lower Back Non-Pharmacological Interventions: Heat, Position/Reposition, Sitting PQRS Narrative: Narcotic Agreement Date Signed 12/10/23 Blood Pressure 88/57 Pain Intensity [Lower Back] 8 Scale Used Numeric (1 - 10) Hx Alcohol Use (MH) No Home Medications: Ambulatory Orders Nitroglycerin Sl Tabs [Nitrostat] 0.4 mg SUBLINGUAL Q5M PRN #7 tab 06/18/20 Aspirin 81 mg PO DAILY 09/21/20 Atorvastatin [Lipitor] 40 mg PO HS 09/21/20 Famotidine 20 mg PO DAILY 09/21/20 Losartan [Cozaar] 25 mg PO HS 09/21/20 Metoprolol Tartrate [Lopressor] 25 mg PO W/SUPPER 09/21/20 Psyllium Husk (with Sugar) [Metamucil Powder] 1 dose PO BID 09/21/20 Tamsulosin HCl [Flomax] 0.8 mg PO HS 09/21/20 Vit C/E/Zn/Coppr/Lutein/Zeaxan [Preservision Areds 2 Softgel] 1 cap PO BID 09/21/20 traMADol HCL [Ultram] 50 mg PO Q8H PRN 06/14/21 Furosemide [Lasix] 20 mg PO DAILY 10/13/21 Metoprolol Tartrate 50 mg PO QAM 10/13/21 Spironolactone [Aldactone] 12.5 mg PO DAILY@1200 10/13/21 Acetaminophen [Tylenol Arthritis] 1,300 mg PO BID PRN 02/09/22 Diclofenac Sodium Gel [Voltaren 1% Gel] 2 gm TOPICAL QID 30 Days #1 each 03/05/23 Ibuprofen 600 mg PO Q8H PRN 30 Days #90 tab 04/30/23 Gabapentin [Neurontin] 100 mg PO HS 30 Days #90 cap 06/25/23 diazePAM [Valium] 5 mg PO DAILY PRN 1 Days #2 tab 12/10/23 diazePAM [Valium] 5 mg PO DAILY PRN 1 Days #2 tab 12/10/23 Controlled Substance Measures - Controlled Substance Measures Is patient prescribed a controlled substance at discharge?: Yes When asked, does pt state using other controlled substances?: No If prescribed controlled substance>3 days was MAPS reviewed?: Prescribed <3 Days
== END ==
LOC: PNWHC3 13:26
PROVIDERS: ATTEND Specialist
DX: M19.012 Primary osteoarthritis, left shoulder (principal); M19.011 Primary osteoarthritis, right shoulder; M54.16 Radiculopathy, lumbar region; Z98.890 Other specified postprocedural states; Z91.048 Other nonmedicinal substance allergy status
CPT/HCPCS: 99211